=== PATIENT | male | born 1965 | race American Indian/Alaskan Native ===

== ENCOUNTER 2017-01-06 06:22 | Emergency (ER) | payer MEDICARE, OTHER ==
[2017-01-06] MEDS ORDERED: Dextrose 50% SYRINGE Inj (50 ml) ONE (06:29)
[2017-01-06] MEDS ORDERED: Dextrose 50% SYRINGE Inj (50 ml) IV STA (06:37)
[2017-01-06 06:44] VITALS: PULSE 78
--- NOTE | 2017-01-06 06:51 | C.PDOC ---
Time Seen by Provider: 01/06/17 06:40 Chief Complaint (Nursing): Altered Mental Status History Per: Patient, EMS History/Exam Limitations: clinical condition Onset/Duration Of Symptoms: Unknown (tonight?) Current Symptoms Are (Timing): Better Severity: Severe Current Diabetic Medications: Insulin Causative (Exacerbating) Factor(s): Other (Alcohol use) Treatment Prior To Provider Evaluation: Accucheck, D50W Given Response To Treatment: Good Response Additional History Per: Prior Records Past Medical History Reviewed: Historical Data, Nursing Documentation, Vital Signs Vital Signs: Last Vital Signs Temp 94.6 F L 01/06/17 06:29 Pulse 78 01/06/17 06:29 Resp 18 01/06/17 06:29 BP 114/92 H 01/06/17 06:29 Pulse Ox 94 L 01/06/17 06:51 - Medical History PMH: Diabetes, HTN - [facility] Procedures TETANUS TOXOID ADMINIST (05/08/15) Family History: States: Unknown Family Hx - Social History Hx Alcohol Use: Yes Hx Substance Use: No - Immunization History Hx Tetanus Toxoid Vaccination: No Hx Influenza Vaccination: No Hx Pneumococcal Vaccination: No Review Of Systems Except As Marked, All Systems Reviewed And Found Negative. Constitutional: Positive for: Sweats Cardiovascular: Negative for: Chest Pain Respiratory: Negative for: Shortness of Breath, Hemoptysis Gastrointestinal: Negative for: Vomiting, Abdominal Pain, Diarrhea Genitourinary: Negative for: Dysuria Musculoskeletal: Negative for: Neck Pain Skin: Negative for: Rash Neurological: Negative for: Weakness, Numbness, Seizures Physical Exam - Physical Exam Appears: In Acute Distress (mild), Chronically Ill Skin: Dry Head: Atraumatic, Normacephalic Eye(s): bilateral: PERRL Neck: Normal ROM, Supple Cardiovascular: Rhythm Regular Respiratory: Normal Breath Sounds, No Accessory Muscle Use Gastrointestinal/Abdominal: Soft, No Tenderness Extremity: Normal ROM Neurological/Psych: Oriented x3, Normal Motor, Normal Sensation ED Course And Treatment O2 Sat by Pulse Oximetry: 94 Pulse Ox Interpretation: Other (borderline) Disposition - Disposition Disposition Time: 07:00 Condition: SERIOUS - Clinical Impression Clinical Impression: Hypoglycemia, Hypothermia Physician Patient Turnover Patient Signed Over To: Ramirez Landis DO Handoff Comments: to f/up labs, CXR, U/A and reassess/dispo pt.
[2017-01-06 08:04] LABS: CHLORIDE 107 mmol/L (98-107); LYMPH # 0.2 K/uL (1.0-4.3); MEAN PLATELET VOLUME 11.1 fL (7.2-11.7); NRBC % 0.4 % (0.0-2.0)
[2017-01-06 08:05] LABS: POTASSIUM 3.8 mmol/L (3.6-5.2); SODIUM 141 mmol/L (132-148)
[2017-01-06 08:07] LABS: ALB/GLOB RATIO 1.3 (1.0-2.1); ALKALINE PHOSPHATASE 56 U/L (38-126); ALT/SGPT 19 U/L (21-72); AST/SGOT 40 U/L (17-59); BILIRUBIN,TOTAL 0.7 mg/dL (0.2-1.3); BLOOD UREA NITROGEN 7 mg/dL (9-20); CARBON DIOXIDE 24 mmol/L (22-30); GFR AFRICAN-AMERICAN > 60; GLUCOSE,RANDOM 136 mg/dL (75-110); TOTAL PROTEIN 7.6 g/dL (6.3-8.3)
[2017-01-06 08:08] LABS: ALCOHOL SERUM < 10 mg/dl (0-10); MAGNESIUM 1.9 mg/dL (1.6-2.3)
--- NOTE | 2017-01-06 08:11 | RAD ---
HISTORY: Hypoglycemia COMPARISON: 08/17/2016 FINDINGS: LUNGS: No focal airspace opacity. PLEURA: No significant pleural effusion identified, no pneumothorax apparent. CARDIOVASCULAR: Normal. OSSEOUS STRUCTURES: Sclerotic focus in the 5th right posterior rib again seen. VISUALIZED UPPER ABDOMEN: Upper abdomen is suboptimally evaluated. OTHER FINDINGS: None. IMPRESSION: No focal airspace opacity.
[2017-01-06 08:15] LABS: BASO # 0.1 K/uL (0.0-0.2); BASO % 1.7 % (0.0-2.0); EOS # 0.6 K/uL (0.0-0.7); EOS % 7.3 % (0.0-4.0); HEMATOCRIT 37.1 % (35.0-51.0); LYMPH % 2.2 % (20.0-40.0); MEAN CORPUSCULAR HGB CONC 34.9 g/dL (33.0-37.0); MONO # 0.7 K/uL (0.0-0.8); MONO % 8.4 % (0.0-10.0); RED CELL DISTRIBUTION WIDTH 14.5 % (11.5-14.5); WHITE BLOOD COUNT 7.9 K/uL (4.8-10.8)
[2017-01-06 08:18] LABS: MEAN CELL VOLUME 97.3 fL (80.0-94.0); PLATELET COUNT 115 K/uL (130-400)
[2017-01-06 09:25] LABS: EOSINOPHIL 1 % (0-4); NEUTROPHIL 83 % (50-75); TOTAL CELLS COUNTED 100
[2017-01-06 09:26] LABS: LARGE PLATELETS PRESENT
[2017-01-06 09:45] LABS: RBC URINE < 1 /hpf (0-3); URINE BILIRUBIN NEGATIVE (NEGATIVE); URINE BLOOD NEGATIVE (NEGATIVE); URINE COLOR Straw (YELLOW); URINE GLUCOSE (UA) 2+ mg/dL (Normal); URINE KETONE NEGATIVE (NEGATIVE); URINE LEUKOCYTE ESTERASE NEG Leu/uL (Negative); URINE PROTEIN NEGATIVE (NEGATIVE); URINE UROBILINOGEN NORMAL mg/dL (0.2-1.0); WBC URINE < 1 /hpf (0-5)
[2017-01-06 09:56] VITALS: BP 133/85; RESP 15; TEMP 97.9; O2SAT 98
--- NOTE | 2017-01-18 23:22 | CARD ---
APPROVED REPORT EKG Measurement Heart [id number] <Conclusion> Normal sinus rhythm Normal ECG
== END 2017-01-06 10:50 | disposition home or self-care (01) ==
LOC: C.ER 06:22 → SUPCPDRO 06:22 → C.ER 10:50
DX: E11.649 Type 2 diabetes mellitus with hypoglycemia without coma (principal); T68.XXXA Hypothermia, initial encounter
CPT/HCPCS: 36415; 71010; 80053; 81001; 83735; 84484; 85025; 93005; 96374; 99285; G0480

== ENCOUNTER 2018-10-23 12:48 | Inpatient (IN) | payer MEDICARE, OTHER ==
[2018-10-23] MEDS ORDERED: Sodium Chloride 0.9% 1,000 ML IV ONE ×2 (12:57→14:35)
[2018-10-23] MEDS ORDERED: Lactated Ringer's 1,000 ML IV STA (12:57)
[2018-10-23 13:22] LABS: HEMOGLOBIN 12.3 g/dL (12.0-18.0)
[2018-10-23] MEDS ORDERED: Iodixanol 320 MG/ML 100 ML BOTTLE IV ONE (13:25)
[2018-10-23 13:28] LABS: MEAN CELL VOLUME 93.6 fL (80.0-94.0); MEAN CORPUSCULAR HEMOGLOBIN 32.3 pg (27.0-31.0); MEAN CORPUSCULAR HGB CONC 34.5 g/dL (33.0-37.0); MEAN PLATELET VOLUME 11.1 fL (7.2-11.7); PLATELET COUNT 78 K/uL (130-400); RBC 3.82 Mil/uL (4.40-5.90); RED CELL DISTRIBUTION WIDTH 12.9 % (11.5-14.5)
[2018-10-23 13:28] LABS: VENOUS BLOOD GAS BASE EXCESS -1.7 mmol/L (0.0-2.0); VENOUS BLOOD GAS PCO2 45 mmHg (40-60); VENOUS BLOOD GAS PO2 30 mm/Hg (30-55); VENOUS BLOOD PH 7.34 (7.32-7.43)
[2018-10-23 13:33] LABS: INR 1.3; PROTHROMBIN TIME 13.8 SECONDS (9.7-12.2)
[2018-10-23 13:47] LABS: BANDS 2 % (0-2); LYMPHOCYTE 44 % (20-40); MONOCYTE 4 % (0-10); NEUTROPHIL 48 % (50-75); PLATELET ESTIMATE DECREASED (NORMAL); REACTIVE LYMPHOCYTES 2 % (0-0); TOTAL CELLS COUNTED 50
[2018-10-23 14:23] LABS: BLOOD UREA NITROGEN 5 mg/dL (9-20)
--- NOTE | 2018-10-23 14:23 | RAD ---
Date of service: 10/23/2018 HISTORY: abd pain COMPARISON: Portable chest 01/06/2017. FINDINGS: LUNGS: No active pulmonary disease. PLEURA: No significant pleural effusion identified, no pneumothorax apparent. CARDIOVASCULAR: No aortic atherosclerotic calcification present. Normal cardiac size. No pulmonary vascular congestion. OSSEOUS STRUCTURES: No significant abnormalities. VISUALIZED UPPER ABDOMEN: Normal. OTHER FINDINGS: External pacemaker in situ. IMPRESSION: No interval acute cardiopulmonary disease appreciated.
[2018-10-23 14:24] LABS: ALB/GLOB RATIO 1.2 (1.0-2.1); ALBUMIN 3.5 g/dL (3.5-5.0); AST/SGOT 24 U/L (17-59); CALCIUM 8.4 mg/dl (8.6-10.4); GFR NON-AFRICAN AMERICAN > 60
[2018-10-23 14:25] LABS: ALT/SGPT 12 U/L (21-72); LIPASE < 10 U/L (23-300)
[2018-10-23] MEDS ORDERED: Piperacill/Tazo 3.375gm in Dex 3.375 GM/50 ML BAG IVPB STA (14:35)
[2018-10-23] MEDS ORDERED: Sodium Chloride 0.9% 1,000 ML ONE (14:44)
[2018-10-23] MEDS ORDERED: Lactated Ringer's 1,000 ML ONE (14:44)
[2018-10-23] MEDS ORDERED: Piperacillin/Tazobact 3.375 gm 100 ML IVPB ONE (14:59)
[2018-10-23] MEDS ORDERED: Potassium Chloride 20 mEq 100 ML ONE (15:37)
--- NOTE | 2018-10-23 15:43 | CT ---
Date of service: 10/23/2018 PROCEDURE: CT Chest, Abdomen and Pelvis with intravenous contrast HISTORY: AAA COMPARISON: Abdomen pelvis CT with contrast 12/08/2012. TECHNIQUE: Following the intravenous administration of iodinated contrast material, a CT examination of the chest, abdomen and pelvis was performed from the domes of the thoracic inlet to the symphysis pubis with reformatted datasets provided in axial, sagittal and coronal planes. Oral contrast was not administered as per referring physician request. IV dose administered: Visipaque 320, 100 cc Radiation dose: Total exam DLP = 1654.77 mGy-cm. This CT exam was performed using one or more of the following dose reduction techniques: Automated exposure control, adjustment of the mA and/or kV according to patient size, and/or use of iterative reconstruction technique. FINDINGS: Aorta: No CT evidence of thoracic or abdominal aortic dissection or aneurysm. There is a nonspecific lucency identified which does not enhance but displaces the renal segment of the abdominal aorta antral laterally toward the left and measures 3.4 x 2.6 cm compared to 4.1 by 1.9 cm on 12/08/[address] The origin of this lucency is unclear. CT CHEST WITH CONTRAST: LUNGS: No infiltrates bilaterally. Central airways are clear. Two noncalcified subpleural nodules are identified measuring 3 mm at the more anterior the 2 and 2.5 mm at the more posterior of the 2. These are interval findings requiring follow-up CT in 12 months. MEDIASTINUM: Unremarkable. Normal caliber aorta and pulmonary arterial trunk. No aortic dissection. Normal size heart. LYMPH NODES: Unremarkable. PLEURA: Unremarkable. No pneumothorax. No pleural fluid. BONES: Unremarkable. OTHER FINDINGS: None. CT ABDOMEN AND PELVIS: LIVER: Periportal edema is appreciated diffusely throughout the liver, nonspecific finding. It is difficult to exclude some element of limited intrahepatic biliary dilatation. GALLBLADDER AND BILE DUCTS: Gallbladder appears distended but is otherwise unremarkable. PANCREAS: Pancreatic edema is not excluded. Pancreatic neoplasm is also difficult to exclude though not specifically identified. Anasarca pattern of intra versus extra abdominal fat and gross cachexia limited definition of the pancreatic borders. SPLEEN: Prior splenectomy again evident. ADRENALS: Left adrenal hyperplasia in question. Right adrenal gland unremarkable. KIDNEYS AND URETERS: Tiny lucency seen the medial upper midpole left kidney too small to characterize with the right kidney unremarkable no obstructive uropathy bilaterally. 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 Abdominal aorta as discussed above. Varices are identified along the anterior abdominal wall as well as an extensive network at the gastrohepatic ligament. BOWEL: No bowel obstruction identified. Prominent thickening in of the colon is proven at the mid descending through rectosigmoid segments but may be present more proximally but the lack of oral contrast limits evaluation. Consider segmental colitis or potentially even adams colitis. Small bowel is poorly evaluated. Stomach is partially collapsed. APPENDIX: Not identified. PERITONEUM: Unremarkable. No free fluid. No free air. LYMPH NODES: Unremarkable. No enlarged lymph nodes. BLADDER: Thickened urinary bladder may indicate cystitis, particularly suspicious due to moderate distention of the urinary bladder rather than collapse. Clinically correlate. REPRODUCTIVE: Mildly enlarged prostate gland. BONES: Mild anterior wedge compression fractures of T11 and L1 are identified which are of indeterminate age. OTHER FINDINGS: None. IMPRESSION: No definite abdominal aortic aneurysm throughout the chest or abdomen with a small cystic lesion or collection displacing the abdominal aorta antral laterally toward the left once again of uncertain origin measuring 3.4 cm greatest dimension. No CT evidence of aortic dissection. Additional findings as discussed above.
--- NOTE | 2018-10-23 15:54 | C.PDOC ---
History Of Present Illness 52 years old male with PMHx of diabetes presents to ED for evaluation of syncopal episode. Patient reports he syncopized at home today. Patient also reports complaints of abdominal pain associated with nausea and constipation prior to event. Denies head injuries or any other complaints. Time Seen by Provider: 10/23/18 12:56 Chief Complaint (Nursing): Abdominal Pain History Per: Patient History/Exam Limitations: no limitations Onset/Duration Of Symptoms: Hrs Current Symptoms Are (Timing): Still Present Location Of Pain/Discomfort: Diffuse Radiation Of Pain To:: None Quality Of Discomfort: "Pain" Associated Symptoms: Nausea, Constipation. denies: Fever, Chills, Vomiting, Di arrhea Exacerbating Factors: None Alleviating Factors: None Last Bowel Movement: Days Ago Recent travel outside of the [place]: No Past Medical History Reviewed: Historical Data, Nursing Documentation, Vital Signs Vital Signs: Last Vital Signs Temp 98.4 F 10/23/18 14:05 Pulse 116 H 10/23/18 15:38 Resp 18 10/23/18 15:38 BP 119/72 10/23/18 15:38 Pulse Ox 100 10/23/18 15:38 - Medical History PMH: Diabetes, HTN - [facility] Procedures TETANUS TOXOID ADMINIST (05/08/15) Family History: States: Unknown Family Hx - Social History Hx Alcohol Use: No Hx Substance Use: No - Immunization History Hx Tetanus Toxoid Vaccination: No Hx Influenza Vaccination: No Hx Pneumococcal Vaccination: No Review Of Systems Except As Marked, All Systems Reviewed And Found Negative. Constitutional: Negative for: Fever, Chills Gastrointestinal: Positive for: Nausea, Abdominal Pain, Constipation. Negative for: Vomiting, Diarrhea Skin: Negative for: Rash Neurological: Positive for: Other (syncopal episode ). Negative for: Weakness, Numbness Physical Exam - Physical Exam Appears: Non-toxic, In Acute Distress (Severe ), Other (Hypertensive ) Skin: Dry, Pale, No Rash Head: Atraumatic, Normacephalic Eye(s): bilateral: Normal Inspection, PERRL, EOMI Oral Mucosa: Dry Neck: Normal ROM, Supple Chest: Symmetrical, No Tenderness Cardiovascular: Rhythm Regular (Tachycardic ) Respiratory: Normal Breath Sounds, No Rales, No Rhonchi, No Wheezing Gastrointestinal/Abdominal: Soft, Tenderness (Mid abdomen ), Guarding, No Rebound Rectal: Other (Stool normal collar ) Extremity: Normal ROM Extremity: Bilateral: Atraumatic, Normal Color And Temperature, Normal ROM Pulses: Left Radial: Normal, Right Radial: Normal, Left Dorsalis Pedis: Normal, Right Dorsalis Pedis: Normal Neurological/Psych: Oriented x3, Normal Speech, Other (Generalized weakness. ) ED Course And Treatment - Laboratory Results Result Diagrams: 10/23/18 13:15 10/23/18 13:15 Lab Results: pO2 30 mm/Hg (30-55) 10/23/18 13:23 VBG pH 7.34 (7.32-7.43) 10/23/18 13:23 VBG pCO2 45 mmHg (40-60) 10/23/18 13:23 VBG HCO3 22.4 mmol/L 10/23/18 13:23 VBG Total CO2 25.7 mmol/L (22-28) 10/23/18 13:23 VBG O2 Sat (Calc) 65.8 % (40-65) H 10/23/18 13:23 VBG Base Excess -1.7 mmol/L (0.0-2.0) L 10/23/18 13:23 VBG Potassium 2.1 mmol/L (3.6-5.2) L* 10/23/18 13:23 Sodium 141.0 mmol/l (132-148) 10/23/18 13:23 Chloride 104.0 mmol/L (98-107) 10/23/18 13:23 Glucose 77 mg/dl (75-110) 10/23/18 13:23 Lactate 7.0 mmol/L (0.7-2.1) H* 10/23/18 13:23 PT 13.8 SECONDS (9.7-12.2) H 10/23/18 13:15 INR 1.3 10/23/18 13:15 APTT 25 SECONDS (21-34) 10/23/18 13:15 Troponin I < 0.0120 ng/mL (0.00-0.120) 10/23/18 13:15 Total Bilirubin 0.8 mg/dL (0.2-1.3) 10/23/18 13:15 AST 24 U/L (17-59) 10/23/18 13:15 ALT 12 U/L (21-72) L D 10/23/18 13:15 Alkaline Phosphatase 73 U/L (38-126) 10/23/18 13:15 Total Protein 6.4 g/dL (6.3-8.3) 10/23/18 13:15 Albumin 3.5 g/dL (3.5-5.0) 10/23/18 13:15 Globulin 2.9 gm/dL (2.2-3.9) 10/23/18 13:15 Albumin/Globulin Ratio 1.2 (1.0-2.1) 10/23/18 13:15 Lipase < 10 U/L (23-300) L 10/23/18 13:15 O2 Sat by Pulse Oximetry: 100 (RA) Pulse Ox Interpretation: Normal - Other Rad CXR X-Ray: Viewed By Me, Read By Radiologist Interpretation: Date of service: 10/23/2018. HISTORY: abd pain. COMPARISON: Portable chest 01/06/2017. FINDINGS: LUNGS: No active pulmonary disease. PLEURA: No significant pleural effusion identified, no pneumothorax apparent. CARDIOVASCULAR: No aortic atherosclerotic calcification present. Normal cardiac size. No pulmonary vascular congestion. OSSEOUS STRUCTURES: No significant abnormalities. VISUALIZED UPPER ABDOMEN: Normal. OTHER FINDINGS: External pacemaker in situ. IMPRESSION: No interval acute cardiopulmonary disease appreciated. - CT Scan/US Chest/Abdomen/Pelvis CT Other Rad Studies (CT/US): Read By Radiologist, Radiology Report Reviewed CT/US Interpretation: Date of service: 10/23/2018. PROCEDURE: CT Chest, Abdomen and Pelvis with intravenous contrast. HISTORY: AAA. COMPARISON: Abdomen pelvis CT with contrast 12/08/2012. TECHNIQUE: Following the intravenous administration of iodinated contrast material, a CT examination of the chest, abdomen and pelvis was performed from the domes of the thoracic inlet to the symphysis pubis with reformatted datasets provided in axial, sagittal and coronal planes. Oral contrast was not administered as per referring physician request. IV dose administered: Visipaque 320, 100 cc. Radiation dose: Total exam DLP = 1654.77 mGy-cm. This CT exam was performed using one or more of the following dose reduction techniques: Automated exposure control, adjustment of the mA and/or kV according to patient size, and/or use of iterative reconstruction technique. FINDINGS: Aorta: No CT evidence of thoracic or abdominal aortic dissection or aneurysm. There is a nonspecific lucency identified which does not enhance but displaces the renal segment of the abdominal aorta antral laterally toward the left and measures 3.4 x 2.6 cm compared to 4.1 by 1.9 cm on 12/08/[address] The origin of this lucency is unclear. CT CHEST WITH CONTRAST: LUNGS: No infiltrates bilaterally. Central airways are clear. Two noncalcified subpleural nodules are identified measuring 3 mm at the more anterior the 2 and 2.5 mm at the more posterior of the 2. The se are interval findings requiring follow-up CT in 12 months. MEDIASTINUM: Unremarkable. Normal caliber aorta and pulmonary arterial trunk. No aortic dissection. Normal size heart. LYMPH NODES: Unremarkable. PLEURA: Unremarkable. No pneumothorax. No pleural fluid. BONES: Unremarkable. OTHER FINDINGS: None. CT ABDOMEN AND PELVIS: LIVER: Periportal edema is appreciated diffusely throughout the liver, nonspecific finding. It is difficult to exclude some element of limited intrahepatic biliary dilatation. GALLBLADDER AND BILE DUCTS: Gallbladder appears distended but is otherwise un remarkable. PANCREAS: Pancreatic edema is not excluded. Pancreatic neoplasm is also difficult to exclude though not specifically identified. Anasarca pattern of intra versus extra abdominal fat and gross cachexia limited definition of the pancreatic borders. SPLEEN: Prior splenectomy again evident. ADRENALS: Left adrenal hyperplasia in question. Right adrenal gland unremarkable. KIDNEYS AND URETERS: Tiny lucency seen the medial upper midpole left kidney too small to characterize with the right kidney unremarkable no obstructive uropathy bilaterally. 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 Abdominal aorta as discussed above. Varices are identified along the anterior abdominal wall as well as an extensive network at the gastrohepatic ligament. BOWEL: No bowel obstruction identified. Prominent thickening in of the colon is proven at the mid descending through rectosigmoid segments but may be present more proximally but the lack of oral contrast limits evaluation. Consider segmental colitis or potentially even adams colitis. Small bowel is poorly evaluated. Stomach is partially collapsed. APPENDIX: Not identified. PERITONEUM: Unremarkable. No free fluid. No free air. LYMPH NODES: Unremarkable. No enlarged lymph nodes. BLADDER: Thickened urinary bladder may indicate cystitis, particularly suspicious due to moderate distention of the urinary bladder rather than collapse. Clinically correlate. REPRODUCTIVE: Mildly enlarged prostate gland. BONES: Mild anterior wedge compression fractures of T11 and L1 are identified which are of indeterminate age. OTHER FINDINGS: None. IMPRESSION: No definite abdominal aortic aneurysm throughout the chest or abdomen with a small cystic lesion or collection displacing the abdominal aorta antral laterally toward the left once again of uncertain origin measuring 3.4 cm greatest dimension. No CT evidence of aortic dissection. Additional findings as discussed above. Medical Decision Making Medical Decision Making: Plan: * IV Fluids * Zosyn * Potassium * Zofran * Protonix * Blood Bank * Blood Gas * EKG * Blood work * CXR * CT Chest, abd, pelv * Blood culture * Urine Culture * Urinalysis Progress: Patient in ER administered IV fluids with improvement of blood pressure. CT and BBK ordered. Elevated Lactate received and code sepsis was called at 14:43. 15:56: Dr. Bull was called and he recommended for patient to be [facility]. Disposition Discussed With : Dennis Verdin - Disposition Disposition Time: 15:56 Condition: SERIOUS - Clinical Impression Clinical Impression: Abdominal pain, Sepsis - Scribe Statement The provider has reviewed the documentation as recorded by the Delfina Lujan All medical record entries made by the Lizbetibkaren were at my direction and personally dictated by me. I have reviewed the chart and agree that the record accurately reflects my personal performance of the history, physical exam, medical decision making, and the department course for this patient. I have also personally directed, reviewed, and agree with the discharge instructions and disposition. Rosemary
[2018-10-23] MEDS ORDERED: Vancomycin 1 GM 1 GM/250 ML BAG IVPB ONE (16:24)
[2018-10-23] MEDS: Lactated Ringer's 1,000 ML IV SCH ×2 (17:10→20:58)
[2018-10-23] MEDS: Magnesium Sulfate 1 gm in D5W 1 GM/100 ML BAG IVPB SCH ×2 (17:10→17:43)
[2018-10-23] MEDS ORDERED: Magnesium Sulfate 1 gm in D5W 1 GM/100 ML BAG IVPB ONE ×2 (17:17→17:44)
[2018-10-23] MEDS: (Novolog Mix 70/30) Insulin Aspart/Insulin Aspar 100 units/ml SC SCH (19:07)
[2018-10-23 20:17] LABS: HEMOGLOBIN 12.1 g/dL (12.0-18.0); MEAN CELL VOLUME 92.5 fL (80.0-94.0); MEAN CORPUSCULAR HEMOGLOBIN 31.7 pg (27.0-31.0); MEAN CORPUSCULAR HGB CONC 34.3 g/dL (33.0-37.0); MEAN PLATELET VOLUME 11.6 fL (7.2-11.7); RBC 3.82 Mil/uL (4.40-5.90); RED CELL DISTRIBUTION WIDTH 12.9 % (11.5-14.5); WHITE BLOOD COUNT 9.7 K/uL (4.8-10.8)
[2018-10-23 20:33] LABS: BLOOD UREA NITROGEN 6 mg/dL (9-20); CALCIUM 7.9 mg/dl (8.6-10.4); GFR NON-AFRICAN AMERICAN > 60
[2018-10-23] MEDS: Potassium Chloride 20 mEq ER Tab PO SCH (20:52)
[2018-10-23 20:59] LABS: SQUAMOUS EPITHIAL 1 /hpf (0-5); URINE BILIRUBIN NEGATIVE (NEGATIVE); URINE BLOOD 1+ (NEGATIVE); URINE CLARITY Clear (Clear); URINE COLOR Yellow (YELLOW); URINE GLUCOSE (UA) 3+ mg/dL (Normal); URINE LEUKOCYTE ESTERASE NEG Leu/uL (Negative); URINE PROTEIN 1+ mg/dL (NEGATIVE); URINE UROBILINOGEN NORMAL mg/dL (0.2-1.0)
[2018-10-23] MEDS: Piperacillin/Tazobact 3.375 GM in Sodium Chloride 100 ML IVPB SCH (21:01)
[2018-10-23 21:03] LABS: HEPATITIS B SURFACE AG Negative (NEGATIVE)
[2018-10-23 21:06] LABS: BARBITURATES, UR NEGATIVE (NEGATIVE); BENZODIAZEPINES, UR NEGATIVE (NEGATIVE); OPIATES, UR NEGATIVE (NEGATIVE); PHENCYCLIDINE, UR NEGATIVE (NEGATIVE)
[2018-10-23 21:09] LABS: HEPATITIS A IGM NEGATIVE (NEGATIVE); HEPATITIS B CORE AB NEGATIVE (NEGATIVE)
[2018-10-23 21:21] LABS: HEPATITIS C ANTIBODY NEGATIVE (NEGATIVE)
[2018-10-23] MEDS ORDERED: Dextrose 50% SYRINGE Inj (50 ml) IV PRN (21:35)
[2018-10-23] MEDS ORDERED: Glucagon Recombinant 1 mg Inj IM PRN (21:35)
[2018-10-23] MEDS: (Novolin R) Insulin Human Regular 100 units/ml vial SC SCH (22:00)
--- NOTE | 2018-10-23 22:13 | CP.PCM.HP ---
Present on Admission - Present on Admission Any Indicators Present on Admission: Yes History of Uncontrolled Diabetes: Yes Past Patient History - Infectious Disease Hx of Infectious Diseases: None - Past Medical History & Family History Past Medical History?: Yes - Past Social History Smoking Status: Heavy Smoker > 10 Cigarettes Daily - CARDIAC Hx Cardiac Disorders: Yes Hx Hypertension: Yes - PULMONARY Hx Respiratory Disorders: No - NEUROLOGICAL Hx Neurological Disorder: Yes Hx Syncope: Yes - HEENT Hx HEENT Problems: No - RENAL Hx Chronic Kidney Disease: No - ENDOCRINE/METABOLIC Hx Endocrine Disorders: Yes Hx Diabetes Mellitus Type 1: Yes - HEMATOLOGICAL/ONCOLOGICAL Hx Blood Disorders: No - INTEGUMENTARY Hx Dermatological Problems: No - MUSCULOSKELETAL/RHEUMATOLOGICAL Hx Musculoskeletal Disorders: No - GASTROINTESTINAL Hx Gastrointestinal Disorders: No - GENITOURINARY/GYNECOLOGICAL Hx Genitourinary Disorders: No - PSYCHIATRIC Hx Psychophysiologic Disorder: No Hx Substance Use: No - SURGICAL HISTORY Hx Surgeries: Yes Hx Splenectomy: Yes () Hx Vascular Surgery: Yes Other/Comment: as per pt,"spleen sx, lungs, and filter to R groin for DVT" - ANESTHESIA Hx Anesthesia: No Hx Anesthesia Reactions: No Hx Malignant Hyperthermia: No Has any member of the family had a problem w/ anesthesia?: No Meds Allergies/Adverse Reactions: Allergies Allergy/AdvReac Type Severity Reaction Status Date / Time aspirin Allergy Verified 10/23/18 12:58 Results - Vital Signs Recent Vital Signs: Last Vital Signs Temp 99.1 F 10/23/18 18:57 Pulse 96 H 10/23/18 19:41 Resp 18 10/23/18 19:41 BP 112/71 10/23/18 19:41 Pulse Ox 98 10/23/18 19:41 - Labs Result Diagrams: 10/23/18 20:10 10/23/18 20:10 Labs: Laboratory Results - last 24 hr 10/23/18 10/23/18 10/23/18 12:59 13:15 13:15 WBC 1.0 L* D RBC 3.82 L Hgb 12.3 Hct 35.7 MCV 93.6 D MCH 32.3 H MCHC 34.5 RDW 12.9 Plt Count 78 L D MPV 11.1 Neutrophils % (Manual) 48 L Band Neutrophils % 2 Lymphocytes % (Manual) 44 H Reactive Lymphs % 2 H Monocytes % (Manual) 4 Platelet Estimate Decreased L RBC Morphology Normal PT INR APTT pO2 VBG pH VBG pCO2 VBG HCO3 VBG Total CO2 VBG O2 Sat (Calc) VBG Base Excess VBG Potassium Glucose Lactate Sodium 140 Potassium 2.5 L* D Chloride 103 Carbon Dioxide 22 Anion Gap 18 BUN 5 L Creatinine 0.6 L Est GFR ( Amer) > 60 Est GFR (Non-Af Amer) > 60 POC Glucose (mg/dL) 82 Random Glucose 84 D Lactic Acid Calcium 8.4 L Phosphorus Magnesium Total Bilirubin 0.8 AST 24 ALT 12 L D Alkaline Phosphatase 73 Troponin I < 0.0120 Total Protein 6.4 Albumin 3.5 Globulin 2.9 Albumin/Globulin Ratio 1.2 Lipase < 10 L Venous Blood Potassium Urine Color Urine Clarity Urine pH Ur Specific [place] Urine Protein Urine Glucose (UA) Urine Ketones Urine Blood Urine Nitrate Urine Bilirubin Urine Urobilinogen Ur Leukocyte Esterase Urine WBC (Auto) Urine RBC (Auto) Ur Squamous Epith Cells Urine Opiates Screen Urine Methadone Screen Ur Barbiturates Screen Ur Phencyclidine Scrn Ur Amphetamines Screen U Benzodiazepines Scrn U Oth Cocaine Metabols U Cannabinoids Screen Hepatitis A IgM Ab Hep Bs Antigen Hep B Core IgM Ab Hepatitis C Antibody HIV 1&2 Antibody Screen Blood Type Antibody Screen 10/23/18 10/23/18 10/23/18 13:15 13:23 16:08 WBC RBC Hgb Hct MCV MCH MCHC RDW Plt Count MPV Neutrophils % (Manual) Band Neutrophils % Lymphocytes % (Manual) Reactive Lymphs % Monocytes % (Manual) Platelet Estimate RBC Morphology PT 13.8 H INR 1.3 APTT 25 pO2 30 VBG pH 7.34 VBG pCO2 45 VBG HCO3 22.4 VBG Total CO2 25.7 VBG O2 Sat (Calc) 65.8 H VBG Base Excess -1.7 L VBG Potassium 2.1 L* Glucose 77 Lactate 7.0 H* Sodium 141.0 Potassium Chloride 104.0 Carbon Dioxide Anion Gap BUN Creatinine Est GFR ( Amer) Est GFR (Non-Af Amer) POC Glucose (mg/dL) Random Glucose Lactic Acid Calcium Phosphorus 2.4 L Magnesium 1.3 L Total Bilirubin AST ALT Alkaline Phosphatase Troponin I Total Protein Albumin Globulin Albumin/Globulin Ratio Lipase Venous Blood Potassium 2.1 L* Urine Color Urine Clarity Urine pH Ur Specific [place] Urine Protein Urine Glucose (UA) Urine Ketones Urine Blood Urine Nitrate Urine Bilirubin Urine Urobilinogen Ur Leukocyte Esterase Urine WBC (Auto) Urine RBC (Auto) Ur Squamous Epith Cells Urine Opiates Screen Urine Methadone Screen Ur Barbiturates Screen Ur Phencyclidine Scrn Ur Amphetamines Screen U Benzodiazepines Scrn U Oth Cocaine Metabols U Cannabinoids Screen Hepatitis A IgM Ab Hep Bs Antigen Hep B Core IgM Ab Hepatitis C Antibody HIV 1&2 Antibody Screen Blood Type Antibody Screen 10/23/18 10/23/18 10/23/18 16:52 18:19 20:10 WBC RBC Hgb Hct MCV MCH MCHC RDW Plt Count MPV Neutrophils % (Manual) Band Neutrophils % Lymphocytes % (Manual) Reactive Lymphs % Monocytes % (Manual) Platelet Estimate RBC Morphology PT INR APTT pO2 VBG pH VBG pCO2 VBG HCO3 VBG Total CO2 VBG O2 Sat (Calc) VBG Base Excess VBG Potassium Glucose Lactate Sodium Potassium Chloride Carbon Dioxide Anion Gap BUN Creatinine Est GFR ( Amer) Est GFR (Non-Af Amer) POC Glucose (mg/dL) 70 Random Glucose Lactic Acid Calcium Phosphorus Magnesium Total Bilirubin AST ALT Alkaline Phosphatase Troponin I Total Protein Albumin Globulin Albumin/Globulin Ratio Lipase Venous Blood Potassium Urine Color Urine Clarity Urine pH Ur Specific [place] Urine Protein Urine Glucose (UA) Urine Ketones Urine Blood Urine Nitrate Urine Bilirubin Urine Urobilinogen Ur Leukocyte Esterase Urine WBC (Auto) Urine RBC (Auto) Ur Squamous Epith Cells Urine Opiates Screen Urine Methadone Screen Ur Barbiturates Screen Ur Phencyclidine Scrn Ur Amphetamines Screen U Benzodiazepines Scrn U Oth Cocaine Metabols U Cannabinoids Screen Hepatitis A IgM Ab Negative Hep Bs Antigen Negative Hep B Core IgM Ab Negative Hepatitis C Antibody Negative HIV 1&2 Antibody Screen Blood Type A POSITIVE Antibody Screen Negative 10/23/18 10/23/18 10/23/18 20:10 20:10 20:10 WBC 9.7 D RBC 3.82 L Hgb 12.1 Hct 35.4 MCV 92.5 MCH 31.7 H MCHC 34.3 RDW 12.9 Plt Count 67 L MPV 11.6 Neutrophils % (Manual) Band Neutrophils % Lymphocytes % (Manual) Reactive Lymphs % Monocytes % (Manual) Platelet Estimate RBC Morphology PT INR APTT pO2 VBG pH VBG pCO2 VBG HCO3 VBG Total CO2 VBG O2 Sat (Calc) VBG Base Excess VBG Potassium Glucose Lactate Sodium 136 Potassium 2.4 L* Chloride 104 Carbon Dioxide 24 Anion Gap 10 BUN 6 L Creatinine 0.7 L Est GFR ( Amer) > 60 Est GFR (Non-Af Amer) > 60 POC Glucose (mg/dL) Random Glucose 49 L D Lactic Acid Calcium 7.9 L Phosphorus Magnesium 2.0 Total Bilirubin AST ALT Alkaline Phosphatase Troponin I Total Protein Albumin Globulin Albumin/Globulin Ratio Lipase Venous Blood Potassium Urine Color Urine Clarity Urine pH Ur Specific [place] Urine Protein Urine Glucose (UA) Urine Ketones Urine Blood Urine Nitrate Urine Bilirubin Urine Urobilinogen Ur Leukocyte Esterase Urine WBC (Auto) Urine RBC (Auto) Ur Squamous Epith Cells Urine Opiates Screen Urine Methadone Screen Ur Barbiturates Screen Ur Phencyclidine Scrn Ur Amphetamines Screen U Benzodiazepines Scrn U Oth Cocaine Metabols U Cannabinoids Screen Hepatitis A IgM Ab Hep Bs Antigen Hep B Core IgM Ab Hepatitis C Antibody HIV 1&2 Antibody Screen Negative Blood Type Antibody Screen 10/23/18 10/23/18 10/23/18 20:41 20:50 21:06 WBC RBC Hgb Hct MCV MCH MCHC RDW Plt Count MPV Neutrophils % (Manual) Band Neutrophils % Lymphocytes % (Manual) Reactive Lymphs % Monocytes % (Manual) Platelet Estimate RBC Morphology PT INR APTT pO2 VBG pH VBG pCO2 VBG HCO3 VBG Total CO2 VBG O2 Sat (Calc) VBG Base Excess VBG Potassium Glucose Lactate Sodium Potassium Chloride Carbon Dioxide Anion Gap BUN Creatinine Est GFR ( Amer) Est GFR (Non-Af Amer) POC Glucose (mg/dL) 40 L Random Glucose Lactic Acid Calcium Phosphorus Magnesium Total Bilirubin AST ALT Alkaline Phosphatase Troponin I Total Protein Albumin Globulin Albumin/Globulin Ratio Lipase Venous Blood Potassium Urine Color Yellow Urine Clarity Clear Urine pH 5.0 Ur Specific [place] 1.036 H Urine Protein 1+ H Urine Glucose (UA) 3+ H Urine Ketones Negative Urine Blood 1+ H Urine Nitrate Negative Urine Bilirubin Negative Urine Urobilinogen Normal Ur Leukocyte Esterase Neg Urine WBC (Auto) 5 Urine RBC (Auto) 1 Ur Squamous Epith Cells 1 Urine Opiates Screen Negative Urine Methadone Screen Negative Ur Barbiturates Screen Negative Ur Phencyclidine Scrn Negative Ur Amphetamines Screen Negative U Benzodiazepines Scrn Negative U Oth Cocaine Metabols Negative U Cannabinoids Screen Negative Hepatitis A IgM Ab Hep Bs Antigen Hep B Core IgM Ab Hepatitis C Antibody HIV 1&2 Antibody Screen Blood Type Antibody Screen 10/23/18 10/23/18 10/23/18 21:09 21:23 21:29 WBC RBC Hgb Hct MCV MCH MCHC RDW Plt Count MPV Neutrophils % (Manual) Band Neutrophils % Lymphocytes % (Manual) Reactive Lymphs % Monocytes % (Manual) Platelet Estimate RBC Morphology PT INR APTT pO2 VBG pH VBG pCO2 VBG HCO3 VBG Total CO2 VBG O2 Sat (Calc) VBG Base Excess VBG Potassium Glucose Lactate Sodium Potassium Chloride Carbon Dioxide Anion Gap BUN Creatinine Est GFR ( Amer) Est GFR (Non-Af Amer) POC Glucose (mg/dL) 40 L 53 L Random Glucose Lactic Acid 4.4 H* Calcium Phosphorus Magnesium Total Bilirubin AST ALT Alkaline Phosphatase Troponin I Total Protein Albumin Globulin Albumin/Globulin Ratio Lipase Venous Blood Potassium Urine Color Urine Clarity Urine pH Ur Specific [place] Urine Protein Urine Glucose (UA) Urine Ketones Urine Blood Urine Nitrate Urine Bilirubin Urine Urobilinogen Ur Leukocyte Esterase Urine WBC (Auto) Urine RBC (Auto) Ur Squamous Epith Cells Urine Opiates Screen Urine Methadone Screen Ur Barbiturates Screen Ur Phencyclidine Scrn Ur Amphetamines Screen U Benzodiazepines Scrn U Oth Cocaine Metabols U Cannabinoids Screen Hepatitis A IgM Ab Hep Bs Antigen Hep B Core IgM Ab Hepatitis C Antibody HIV 1&2 Antibody Screen Blood Type Antibody Screen 10/23/18 21:32 WBC RBC Hgb Hct MCV MCH MCHC RDW Plt Count MPV Neutrophils % (Manual) Band Neutrophils % Lymphocytes % (Manual) Reactive Lymphs % Monocytes % (Manual) Platelet Estimate RBC Morphology PT INR APTT pO2 VBG pH VBG pCO2 VBG HCO3 VBG Total CO2 VBG O2 Sat (Calc) VBG Base Excess VBG Potassium Glucose Lactate Sodium Potassium Chloride Carbon Dioxide Anion Gap BUN Creatinine Est GFR ( Amer) Est GFR (Non-Af Amer) POC Glucose (mg/dL) 53 L Random Glucose Lactic Acid Calcium Phosphorus Magnesium Total Bilirubin AST ALT Alkaline Phosphatase Troponin I Total Protein Albumin Globulin Albumin/Globulin Ratio Lipase Venous Blood Potassium Urine Color Urine Clarity Urine pH Ur Specific [place] Urine Protein Urine Glucose (UA) Urine Ketones Urine Blood Urine Nitrate Urine Bilirubin Urine Urobilinogen Ur Leukocyte Esterase Urine WBC (Auto) Urine RBC (Auto) Ur Squamous Epith Cells Urine Opiates Screen Urine Methadone Screen Ur Barbiturates Screen Ur Phencyclidine Scrn Ur Amphetamines Screen U Benzodiazepines Scrn U Oth Cocaine Metabols U Cannabinoids Screen Hepatitis A IgM Ab Hep Bs Antigen Hep B Core IgM Ab Hepatitis C Antibody HIV 1&2 Antibody Screen Blood Type Antibody Screen
[2018-10-24] MEDS: Lactated Ringer's 1,000 ML IV SCH ×4 (00:03→20:30)
[2018-10-24] MEDS: Potassium Chloride 20 mEq ER Tab PO SCH ×5 (01:00→18:06)
[2018-10-24] MEDS: Piperacillin/Tazobact 3.375 GM in Sodium Chloride 100 ML IVPB SCH ×2 (02:30→21:32)
[2018-10-24] MEDS ORDERED: Vancomycin 1 gm/NS 200 ml 1 GM/200 ML BAG IVPB SCH (04:30)
[2018-10-24 06:06] LABS: BASO % 0.2 % (0.0-2.0); HEMOGLOBIN 11.6 g/dL (12.0-18.0); LYMPH # 0.2 K/uL (1.0-4.3); LYMPH % 0.8 % (20.0-40.0); MEAN CELL VOLUME 91.6 fL (80.0-94.0); MEAN CORPUSCULAR HEMOGLOBIN 32.1 pg (27.0-31.0); MEAN CORPUSCULAR HGB CONC 35.1 g/dL (33.0-37.0); MONO # 1.8 K/uL (0.0-0.8); MONO % 8.8 % (0.0-10.0); NEUT # 18.2 K/uL (1.8-7.0); NEUT % 90.2 % (50.0-75.0); NRBC % 0.1 % (0.0-2.0); PLATELET COUNT 62 K/uL (130-400); RBC 3.61 Mil/uL (4.40-5.90); RED CELL DISTRIBUTION WIDTH 13.1 % (11.5-14.5)
[2018-10-24 06:21] LABS: WHITE BLOOD COUNT 20.2 K/uL (4.8-10.8)
[2018-10-24 06:38] LABS: ALB/GLOB RATIO 1.1 (1.0-2.1); ALBUMIN 3.2 g/dL (3.5-5.0); ALT/SGPT 25 U/L (21-72); AST/SGOT 56 U/L (17-59); BLOOD UREA NITROGEN 9 mg/dL (9-20); GFR NON-AFRICAN AMERICAN > 60
[2018-10-24] MEDS: Magnesium Sulfate 1 gm in D5W 1 GM/100 ML BAG IVPB SCH ×2 (07:00→07:35)
[2018-10-24] MEDS ORDERED: Potassium Phosphate 15 MMOLE in Dextrose 5% In Water 250 ML IVPB ONE (07:01)
[2018-10-24] MEDS: (Novolin R) Insulin Human Regular 100 units/ml vial SC SCH ×4 (07:42→22:37)
[2018-10-24] MEDS ORDERED: Bismuth Subsalicylate 262 mg Chew Tab PO PRN (08:00)
[2018-10-24] MEDS: (Novolog Mix 70/30) Insulin Aspart/Insulin Aspar 100 units/ml SC SCH ×2 (08:00→16:35)
[2018-10-24] MEDS: metroNIDAZOLE IV 500 mg/100 ml 500 MG/100 ML BAG IVPB SCH ×2 (08:00→16:32)
[2018-10-24 08:16] LABS: BANDS 23 % (0-2); MONOCYTE 6 % (0-10); NEUTROPHIL 71 % (50-75); PLATELET ESTIMATE DECREASED (NORMAL); TOTAL CELLS COUNTED 100
[2018-10-24 08:17] LABS: ANISOCYTOSIS SLIGHT; BURR CELLS SLIGHT; HYPOCHROMIC SLIGHT; MICROCYTOSIS SLIGHT; POIKILOCYTOSIS SLIGHT; TARGET CELLS SLIGHT
[2018-10-24 08:18] LABS: ACANTHOCYTES SLIGHT; LARGE PLATELETS PRESENT
[2018-10-24] MEDS ORDERED: Dextrose 50% SYRINGE Inj (50 ml) IV PRN (08:45)
--- NOTE | 2018-10-24 20:43 | CP.PCM.CON ---
History of Present Illness - History of Present Illness History of Present Illness: 52 year old male with no past medical history, admitted s/p syncopal episode with pancytopenia and abdominal lesion. The patient notes to falling to the floor yesterday and does not remember the event. His brother found him and brought him to the hospital. He notes to diminished appetite at times and has lost some weight. He was drinking heavily in the past but notes to his last drink about 1 month ago. He denies abnormal bleeding and bruising. A CT A/P revealed an abdominal lesion displacing the aorta. Past medical history: None Past surgical history: Denies Family history: Denies hematologic and oncologic problems Social history: 1ppd x 35 years, alcohol 1 month ago Allergies: Aspirin Review of systems: All remaining review of systems including HEENT, cardiovascular, respiratory, gastrointestinal, genitourinary, musculoskeletal, dermatologic, neurologic, and psychiatric are negative unless mentioned in the HPI. Past Patient History - Infectious Disease Hx of Infectious Diseases: None - Past Medical History & Family History Past Medical History?: Yes - Past Social History Smoking Status: Heavy Smoker > 10 Cigarettes Daily - CARDIAC Hx Cardiac Disorders: Yes Hx Hypertension: Yes - PULMONARY Hx Respiratory Disorders: No - NEUROLOGICAL Hx Neurological Disorder: Yes Hx Syncope: Yes - HEENT Hx HEENT Problems: No - RENAL Hx Chronic Kidney Disease: No - ENDOCRINE/METABOLIC Hx Endocrine Disorders: Yes Hx Diabetes Mellitus Type 1: Yes - HEMATOLOGICAL/ONCOLOGICAL Hx Blood Disorders: No - INTEGUMENTARY Hx Dermatological Problems: No - MUSCULOSKELETAL/RHEUMATOLOGICAL Hx Musculoskeletal Disorders: No - GASTROINTESTINAL Hx Gastrointestinal Disorders: No - GENITOURINARY/GYNECOLOGICAL Hx Genitourinary Disorders: No - PSYCHIATRIC Hx Psychophysiologic Disorder: No Hx Substance Use: No - SURGICAL HISTORY Hx Surgeries: Yes Hx Splenectomy: Yes () Hx Vascular Surgery: Yes Other/Comment: as per pt,"spleen sx, lungs, and filter to R groin for DVT" - ANESTHESIA Hx Anesthesia: No Hx Anesthesia Reactions: No Hx Malignant Hyperthermia: No Has any member of the family had a problem w/ anesthesia?: No Meds Allergies/Adverse Reactions: Allergies Allergy/AdvReac Type Severity Reaction Status Date / Time aspirin Allergy Verified 10/23/18 12:58 - Medications Medications: Current Medications Acetaminophen (Tylenol 325mg Tab) 650 mg PO Q6 PRN PRN Reason: Fever >100.4 F Last Admin: 10/24/18 05:14 Dose: 650 mg Bismuth Subsalicylate (Pepto Bismol) 262 mg PO Q4H PRN PRN Reason: Diarrhea Dextrose (Glutose 15) 0 gm PO ONCE PRN; Protocol PRN Reason: Hypoglycemia Protocol Last Admin: 10/24/18 08:49 Dose: 15 gm Dextrose (Dextrose 50% Inj) 50 ml IV PRN PRN; Protocol PRN Reason: Hypoglycemia Protocol Glucagon (Glucagen Diagnostic Kit) 0 mg IM STAT PRN; Protocol PRN Reason: Hypoglycemia Protocol Lactated Ringer's (Lactated Ringer's) 1,000 mls @ 150 mls/hr IV .Q6H40M [facility] Last Admin: 10/24/18 13:05 Dose: Not Given Dextrose (Dextrose 5% In Water 1000 Ml) 1,000 mls @ 0 mls/hr IV .Q0M PRN; Protocol PRN Reason: Hypoglycemia Protocol Metronidazole (Flagyl) 500 mg in 100 mls @ 100 mls/hr IVPB Q8H [facility]; Protocol Last Admin: 10/24/18 16:32 Dose: 100 mls/hr Vancomycin/Sodium Chloride (Vancomycin 1 Gm/Ns 200 Ml) 1 gm in 200 mls @ 133 mls/hr IVPB Q12H [facility]; Protocol Stop: 10/29/18 18:46 Piperacillin Sod/Tazobactam (Sod 3.375 gm/ Sodium Chloride) 100 mls @ 200 mls/hr IVPB Q6H [facility]; Protocol Insulin Aspart (Novolog Mix 70/30 (70/30 Units/Ml)) 14 units SC BIDCC [facility] Last Admin: 10/24/18 16:35 Dose: Not Given Insulin Human Regular (Novolin R) 0 unit SC ACHS [facility]; Protocol Last Admin: 10/24/18 16:34 Dose: Not Given Pneumococcal Polyvalent Vaccine (Pneumovax 23 Vaccine) 0.5 ml IM .ONCE ONE Stop: 10/26/18 10:01 Potassium Chloride (K-Dur 20 Meq Er Tab) 40 meq PO Q6H [facility] Stop: 10/25/18 01:01 Last Admin: 10/24/18 18:06 Dose: Not Given Physical Exam - Head Exam Head Exam: ATRAUMATIC - Eye Exam Eye Exam: Normal appearance - ENT Exam ENT Exam: Mucous Membranes Dry - Respiratory Exam Respiratory Exam: NORMAL BREATHING PATTERN - Cardiovascular Exam Cardiovascular Exam: +S1, +S2 - GI/Abdominal Exam GI & Abdominal Exam: Normal Bowel Sounds - Extremities Exam Extremities exam: Positive for: normal inspection - Neurological Exam Neurological exam: Oriented x3 - Psychiatric Exam Psychiatric exam: Normal Affect, Normal Mood - Skin Skin Exam: Warm Results - Vital Signs Recent Vital Signs: Last Vital Signs Temp 99.6 F 10/24/18 06:14 Pulse 101 H 10/24/18 04:00 Resp 21 10/24/18 04:00 BP 90/52 L 10/24/18 04:00 Pulse Ox 97 10/24/18 04:00 - Labs Result Diagrams: 10/24/18 05:52 10/24/18 05:52 Labs: Laboratory Results - last 24 hr 10/23/18 10/23/18 10/23/18 20:10 20:10 20:41 WBC RBC Hgb Hct MCV MCH MCHC RDW Plt Count MPV Neut % (Auto) Lymph % (Auto) [place] % (Auto) Eos % (Auto) Baso % (Auto) Neut # (Auto) Lymph # (Auto) [place] # (Auto) Eos # (Auto) Baso # (Auto) Neutrophils % (Manual) Band Neutrophils % Lymphocytes % (Manual) Monocytes % (Manual) Platelet Estimate Large Platelets Hypochromasia (manual) Poikilocytosis (manual Anisocytosis (manual) Microcytosis (manual) Target Cells [place] Cells Acanthocytes (Spur) Sodium Potassium Chloride Carbon Dioxide Anion Gap BUN Creatinine Est GFR ( Amer) Est GFR (Non-Af Amer) POC Glucose (mg/dL) Random Glucose Lactic Acid Calcium Phosphorus Magnesium Total Bilirubin AST ALT Alkaline Phosphatase Total Protein Albumin Globulin Albumin/Globulin Ratio Urine Color Urine Clarity Urine pH Ur Specific [place] Urine Protein Urine Glucose (UA) Urine Ketones Urine Blood Urine Nitrate Urine Bilirubin Urine Urobilinogen Ur Leukocyte Esterase Urine WBC (Auto) Urine RBC (Auto) Ur Squamous Epith Cells Urine Opiates Screen Negative Urine Methadone Screen Negative Ur Barbiturates Screen Negative Ur Phencyclidine Scrn Negative Ur Amphetamines Screen Negative U Benzodiazepines Scrn Negative U Oth Cocaine Metabols Negative U Cannabinoids Screen Negative C. difficile Ag & Toxin Hepatitis A IgM Ab Negative Hep Bs Antigen Negative Hep B Core IgM Ab Negative Hepatitis C Antibody Negative HIV 1&2 Antibody Screen Negative 10/23/18 10/23/18 10/23/18 20:50 21:06 21:09 WBC RBC Hgb Hct MCV MCH MCHC RDW Plt Count MPV Neut % (Auto) Lymph % (Auto) [place] % (Auto) Eos % (Auto) Baso % (Auto) Neut # (Auto) Lymph # (Auto) [place] # (Auto) Eos # (Auto) Baso # (Auto) Neutrophils % (Manual) Band Neutrophils % Lymphocytes % (Manual) Monocytes % (Manual) Platelet Estimate Large Platelets Hypochromasia (manual) Poikilocytosis (manual Anisocytosis (manual) Microcytosis (manual) Target Cells [place] Cells Acanthocytes (Spur) Sodium Potassium Chloride Carbon Dioxide Anion Gap BUN Creatinine Est GFR ( Amer) Est GFR (Non-Af Amer) POC Glucose (mg/dL) 40 L 40 L Random Glucose Lactic Acid Calcium Phosphorus Magnesium Total Bilirubin AST ALT Alkaline Phosphatase Total Protein Albumin Globulin Albumin/Globulin Ratio Urine Color Yellow Urine Clarity Clear Urine pH 5.0 Ur Specific [place] 1.036 H Urine Protein 1+ H Urine Glucose (UA) 3+ H Urine Ketones Negative Urine Blood 1+ H Urine Nitrate Negative Urine Bilirubin Negative Urine Urobilinogen Normal Ur Leukocyte Esterase Neg Urine WBC (Auto) 5 Urine RBC (Auto) 1 Ur Squamous Epith Cells 1 Urine Opiates Screen Urine Methadone Screen Ur Barbiturates Screen Ur Phencyclidine Scrn Ur Amphetamines Screen U Benzodiazepines Scrn U Oth Cocaine Metabols U Cannabinoids Screen C. difficile Ag & Toxin Hepatitis A IgM Ab Hep Bs Antigen Hep B Core IgM Ab Hepatitis C Antibody HIV 1&2 Antibody Screen 10/23/18 10/23/18 10/23/18 21:23 21:29 21:32 WBC RBC Hgb Hct MCV MCH MCHC RDW Plt Count MPV Neut % (Auto) Lymph % (Auto) [place] % (Auto) Eos % (Auto) Baso % (Auto) Neut # (Auto) Lymph # (Auto) [place] # (Auto) Eos # (Auto) Baso # (Auto) Neutrophils % (Manual) Band Neutrophils % Lymphocytes % (Manual) Monocytes % (Manual) Platelet Estimate Large Platelets Hypochromasia (manual) Poikilocytosis (manual Anisocytosis (manual) Microcytosis (manual) Target Cells [place] Cells Acanthocytes (Spur) Sodium Potassium Chloride Carbon Dioxide Anion Gap BUN Creatinine Est GFR ( Amer) Est GFR (Non-Af Amer) POC Glucose (mg/dL) 53 L 53 L Random Glucose Lactic Acid 4.4 H* Calcium Phosphorus Magnesium Total Bilirubin AST ALT Alkaline Phosphatase Total Protein Albumin Globulin Albumin/Globulin Ratio Urine Color Urine Clarity Urine pH Ur Specific [place] Urine Protein Urine Glucose (UA) Urine Ketones Urine Blood Urine Nitrate Urine Bilirubin Urine Urobilinogen Ur Leukocyte Esterase Urine WBC (Auto) Urine RBC (Auto) Ur Squamous Epith Cells Urine Opiates Screen Urine Methadone Screen Ur Barbiturates Screen Ur Phencyclidine Scrn Ur Amphetamines Screen U Benzodiazepines Scrn U Oth Cocaine Metabols U Cannabinoids Screen C. difficile Ag & Toxin Hepatitis A IgM Ab Hep Bs Antigen Hep B Core IgM Ab Hepatitis C Antibody HIV 1&2 Antibody Screen 10/23/18 10/24/18 10/24/18 22:16 05:51 05:52 WBC 20.2 H D RBC 3.61 L Hgb 11.6 L Hct 33.1 L MCV 91.6 MCH 32.1 H MCHC 35.1 RDW 13.1 Plt Count 62 L MPV 12.0 H Neut % (Auto) 90.2 H Lymph % (Auto) 0.8 L [place] % (Auto) 8.8 Eos % (Auto) 0.0 Baso % (Auto) 0.2 Neut # (Auto) 18.2 H Lymph # (Auto) 0.2 L [place] # (Auto) 1.8 H Eos # (Auto) 0.0 Baso # (Auto) 0.0 Neutrophils % (Manual) 71 Band Neutrophils % 23 H* Lymphocytes % (Manual) TEST NOT PERFORMED Monocytes % (Manual) 6 Platelet Estimate Decreased L Large Platelets Present Hypochromasia (manual) Slight Poikilocytosis (manual Slight Anisocytosis (manual) Slight Microcytosis (manual) Slight Target Cells Slight [place] Cells Slight Acanthocytes (Spur) Slight Sodium Potassium Chloride Carbon Dioxide Anion Gap BUN Creatinine Est GFR ( Amer) Est GFR (Non-Af Amer) POC Glucose (mg/dL) 112 H Random Glucose Lactic Acid 3.2 H Calcium Phosphorus Magnesium Total Bilirubin AST ALT Alkaline Phosphatase Total Protein Albumin Globulin Albumin/Globulin Ratio Urine Color Urine Clarity Urine pH Ur Specific [place] Urine Protein Urine Glucose (UA) Urine Ketones Urine Blood Urine Nitrate Urine Bilirubin Urine Urobilinogen Ur Leukocyte Esterase Urine WBC (Auto) Urine RBC (Auto) Ur Squamous Epith Cells Urine Opiates Screen Urine Methadone Screen Ur Barbiturates Screen Ur Phencyclidine Scrn Ur Amphetamines Screen U Benzodiazepines Scrn U Oth Cocaine Metabols U Cannabinoids Screen C. difficile Ag & Toxin Hepatitis A IgM Ab Hep Bs Antigen Hep B Core IgM Ab Hepatitis C Antibody HIV 1&2 Antibody Screen 10/24/18 10/24/18 10/24/18 05:52 05:55 07:27 WBC RBC Hgb Hct MCV MCH MCHC RDW Plt Count MPV Neut % (Auto) Lymph % (Auto) [place] % (Auto) Eos % (Auto) Baso % (Auto) Neut # (Auto) Lymph # (Auto) [place] # (Auto) Eos # (Auto) Baso # (Auto) Neutrophils % (Manual) Band Neutrophils % Lymphocytes % (Manual) Monocytes % (Manual) Platelet Estimate Large Platelets Hypochromasia (manual) Poikilocytosis (manual Anisocytosis (manual) Microcytosis (manual) Target Cells [place] Cells Acanthocytes (Spur) Sodium 137 Potassium 2.5 L* Chloride 105 Carbon Dioxide 25 Anion Gap 11 BUN 9 Creatinine 0.7 L Est GFR ( Amer) > 60 Est GFR (Non-Af Amer) > 60 POC Glucose (mg/dL) 31 L* Random Glucose 54 L Lactic Acid Calcium 8.0 L Phosphorus 2.1 L Magnesium 1.8 Total Bilirubin 0.4 AST 56 ALT 25 Alkaline Phosphatase 53 Total Protein 6.0 L Albumin 3.2 L Globulin 2.8 Albumin/Globulin Ratio 1.1 Urine Color Urine Clarity Urine pH Ur Specific [place] Urine Protein Urine Glucose (UA) Urine Ketones Urine Blood Urine Nitrate Urine Bilirubin Urine Urobilinogen Ur Leukocyte Esterase Urine WBC (Auto) Urine RBC (Auto) Ur Squamous Epith Cells Urine Opiates Screen Urine Methadone Screen Ur Barbiturates Screen Ur Phencyclidine Scrn Ur Amphetamines Screen U Benzodiazepines Scrn U Oth Cocaine Metabols U Cannabinoids Screen C. difficile Ag & Toxin Negative Hepatitis A IgM Ab Hep Bs Antigen Hep B Core IgM Ab Hepatitis C Antibody HIV 1&2 Antibody Screen 10/24/18 10/24/18 10/24/18 07:28 07:54 07:55 WBC RBC Hgb Hct MCV MCH MCHC RDW Plt Count MPV Neut % (Auto) Lymph % (Auto) [place] % (Auto) Eos % (Auto) Baso % (Auto) Neut # (Auto) Lymph # (Auto) [place] # (Auto) Eos # (Auto) Baso # (Auto) Neutrophils % (Manual) Band Neutrophils % Lymphocytes % (Manual) Monocytes % (Manual) Platelet Estimate Large Platelets Hypochromasia (manual) Poikilocytosis (manual Anisocytosis (manual) Microcytosis (manual) Target Cells [place] Cells Acanthocytes (Spur) Sodium Potassium Chloride Carbon Dioxide Anion Gap BUN Creatinine Est GFR ( Amer) Est GFR (Non-Af Amer) POC Glucose (mg/dL) 42 L 57 L 57 L Random Glucose Lactic Acid Calcium Phosphorus Magnesium Total Bilirubin AST ALT Alkaline Phosphatase Total Protein Albumin Globulin Albumin/Globulin Ratio Urine Color Urine Clarity Urine pH Ur Specific [place] Urine Protein Urine Glucose (UA) Urine Ketones Urine Blood Urine Nitrate Urine Bilirubin Urine Urobilinogen Ur Leukocyte Esterase Urine WBC (Auto) Urine RBC (Auto) Ur Squamous Epith Cells Urine Opiates Screen Urine Methadone Screen Ur Barbiturates Screen Ur Phencyclidine Scrn Ur Amphetamines Screen U Benzodiazepines Scrn U Oth Cocaine Metabols U Cannabinoids Screen C. difficile Ag & Toxin Hepatitis A IgM Ab Hep Bs Antigen Hep B Core IgM Ab Hepatitis C Antibody HIV 1&2 Antibody Screen 10/24/18 10/24/18 10/24/18 09:00 11:32 16:34 WBC RBC Hgb Hct MCV MCH MCHC RDW Plt Count MPV Neut % (Auto) Lymph % (Auto) [place] % (Auto) Eos % (Auto) Baso % (Auto) Neut # (Auto) Lymph # (Auto) [place] # (Auto) Eos # (Auto) Baso # (Auto) Neutrophils % (Manual) Band Neutrophils % Lymphocytes % (Manual) Monocytes % (Manual) Platelet Estimate Large Platelets Hypochromasia (manual) Poikilocytosis (manual Anisocytosis (manual) Microcytosis (manual) Target Cells [place] Cells Acanthocytes (Spur) Sodium Potassium Chloride Carbon Dioxide Anion Gap BUN Creatinine Est GFR ( Amer) Est GFR (Non-Af Amer) POC Glucose (mg/dL) 144 H 111 H 107 Random Glucose Lactic Acid Calcium Phosphorus Magnesium Total Bilirubin AST ALT Alkaline Phosphatase Total Protein Albumin Globulin Albumin/Globulin Ratio Urine Color Urine Clarity Urine pH Ur Specific [place] Urine Protein Urine Glucose (UA) Urine Ketones Urine Blood Urine Nitrate Urine Bilirubin Urine Urobilinogen Ur Leukocyte Esterase Urine WBC (Auto) Urine RBC (Auto) Ur Squamous Epith Cells Urine Opiates Screen Urine Methadone Screen Ur Barbiturates Screen Ur Phencyclidine Scrn Ur Amphetamines Screen U Benzodiazepines Scrn U Oth Cocaine Metabols U Cannabinoids Screen C. difficile Ag & Toxin Hepatitis A IgM Ab Hep Bs Antigen Hep B Core IgM Ab Hepatitis C Antibody HIV 1&2 Antibody Screen Assessment & Plan (1) Pancytopenia Assessment and Plan: leukopenia/neutropenia resolved ? alcohol anemia w/u sent chronic thrombocytopenia ?liver disease Status: Acute (2) Abdominal mass Assessment and Plan: MRI of the abdomen for further evaluation Thank you for this interesting consult. Status: Acute
[2018-10-24] MEDS: Vancomycin 1 gm/NS 200 ml 1 GM/200 ML BAG IVPB SCH (22:38)
--- NOTE | 2018-10-24 22:43 | CP.PCM.CON ---
History of Present Illness - History of Present Illness History of Present Illness: INFECTIOUS DISEASE CONSULT; CHART REVIEWED, RADIOLOGY REVIEWED CONSULT DICTATED; DICT NO #[id number]. Past Patient History - Infectious Disease Hx of Infectious Diseases: None - Past Medical History & Family History Past Medical History?: Yes - Past Social History Smoking Status: Heavy Smoker > 10 Cigarettes Daily - CARDIAC Hx Cardiac Disorders: Yes Hx Hypertension: Yes - PULMONARY Hx Respiratory Disorders: No - NEUROLOGICAL Hx Neurological Disorder: Yes Hx Syncope: Yes - HEENT Hx HEENT Problems: No - RENAL Hx Chronic Kidney Disease: No - ENDOCRINE/METABOLIC Hx Endocrine Disorders: Yes Hx Diabetes Mellitus Type 1: Yes - HEMATOLOGICAL/ONCOLOGICAL Hx Blood Disorders: No - INTEGUMENTARY Hx Dermatological Problems: No - MUSCULOSKELETAL/RHEUMATOLOGICAL Hx Musculoskeletal Disorders: No - GASTROINTESTINAL Hx Gastrointestinal Disorders: No - GENITOURINARY/GYNECOLOGICAL Hx Genitourinary Disorders: No - PSYCHIATRIC Hx Psychophysiologic Disorder: No Hx Substance Use: No - SURGICAL HISTORY Hx Surgeries: Yes Hx Splenectomy: Yes () Hx Vascular Surgery: Yes Other/Comment: as per pt,"spleen sx, lungs, and filter to R groin for DVT" - ANESTHESIA Hx Anesthesia: No Hx Anesthesia Reactions: No Hx Malignant Hyperthermia: No Has any member of the family had a problem w/ anesthesia?: No Meds Allergies/Adverse Reactions: Allergies Allergy/AdvReac Type Severity Reaction Status Date / Time aspirin Allergy Verified 10/23/18 12:58 - Medications Medications: Current Medications Acetaminophen (Tylenol 325mg Tab) 650 mg PO Q6 PRN PRN Reason: Fever >100.4 F Last Admin: 10/24/18 05:14 Dose: 650 mg Bismuth Subsalicylate (Pepto Bismol) 262 mg PO Q4H PRN PRN Reason: Diarrhea Dextrose (Glutose 15) 0 gm PO ONCE PRN; Protocol PRN Reason: Hypoglycemia Protocol Last Admin: 10/24/18 08:49 Dose: 15 gm Dextrose (Dextrose 50% Inj) 50 ml IV PRN PRN; Protocol PRN Reason: Hypoglycemia Protocol Glucagon (Glucagen Diagnostic Kit) 0 mg IM STAT PRN; Protocol PRN Reason: Hypoglycemia Protocol Lactated Ringer's (Lactated Ringer's) 1,000 mls @ 150 mls/hr IV .Q6H40M [facility] Last Admin: 10/24/18 20:30 Dose: Not Given Dextrose (Dextrose 5% In Water 1000 Ml) 1,000 mls @ 0 mls/hr IV .Q0M [facility]; Protocol PRN Reason: Hypoglycemia Protocol Metronidazole (Flagyl) 500 mg in 100 mls @ 100 mls/hr IVPB Q8H [facility]; Protocol Last Admin: 10/24/18 16:32 Dose: 100 mls/hr Vancomycin/Sodium Chloride (Vancomycin 1 Gm/Ns 200 Ml) 1 gm in 200 mls @ 133 mls/hr IVPB Q12H [facility]; Protocol Stop: 10/29/18 18:46 Last Admin: 10/24/18 22:38 Dose: 133 mls/hr Piperacillin Sod/Tazobactam (Sod 3.375 gm/ Sodium Chloride) 100 mls @ 200 mls/hr IVPB Q6H [facility]; Protocol Last Admin: 10/24/18 21:32 Dose: 200 mls/hr Insulin Aspart (Novolog Mix 70/30 (70/30 Units/Ml)) 14 units SC BIDCC [facility] Last Admin: 10/24/18 16:35 Dose: Not Given Insulin Human Regular (Novolin R) 0 unit SC ACHS [facility]; Protocol Last Admin: 10/24/18 22:37 Dose: Not Given Pneumococcal Polyvalent Vaccine (Pneumovax 23 Vaccine) 0.5 ml IM .ONCE ONE Stop: 10/26/18 10:01 Potassium Chloride (K-Dur 20 Meq Er Tab) 40 meq PO Q6H [facility] Stop: 10/25/18 01:01 Last Admin: 10/24/18 18:06 Dose: Not Given Results - Vital Signs Recent Vital Signs: Last Vital Signs Temp 99.6 F 10/24/18 06:14 Pulse 101 H 10/24/18 04:00 Resp 21 10/24/18 04:00 BP 90/52 L 10/24/18 04:00 Pulse Ox 97 10/24/18 04:00 - Labs Result Diagrams: 10/26/18 11:41 10/26/18 11:41 Labs: Laboratory Results - last 24 hr 10/24/18 10/24/18 10/24/18 05:51 05:52 05:52 WBC 20.2 H D RBC 3.61 L Hgb 11.6 L Hct 33.1 L MCV 91.6 MCH 32.1 H MCHC 35.1 RDW 13.1 Plt Count 62 L MPV 12.0 H Neut % (Auto) 90.2 H Lymph % (Auto) 0.8 L [place] % (Auto) 8.8 Eos % (Auto) 0.0 Baso % (Auto) 0.2 Neut # (Auto) 18.2 H Lymph # (Auto) 0.2 L [place] # (Auto) 1.8 H Eos # (Auto) 0.0 Baso # (Auto) 0.0 Neutrophils % (Manual) 71 Band Neutrophils % 23 H* Lymphocytes % (Manual) TEST NOT PERFORMED Monocytes % (Manual) 6 Platelet Estimate Decreased L Large Platelets Present Hypochromasia (manual) Slight Poikilocytosis (manual Slight Anisocytosis (manual) Slight Microcytosis (manual) Slight Target Cells Slight [place] Cells Slight Acanthocytes (Spur) Slight Sodium 137 Potassium 2.5 L* Chloride 105 Carbon Dioxide 25 Anion Gap 11 BUN 9 Creatinine 0.7 L Est GFR ( Amer) > 60 Est GFR (Non-Af Amer) > 60 POC Glucose (mg/dL) Random Glucose 54 L Lactic Acid 3.2 H Calcium 8.0 L Phosphorus 2.1 L Magnesium 1.8 Total Bilirubin 0.4 AST 56 ALT 25 Alkaline Phosphatase 53 Total Protein 6.0 L Albumin 3.2 L Globulin 2.8 Albumin/Globulin Ratio 1.1 C. difficile Ag & Toxin 10/24/18 10/24/18 10/24/18 05:55 07:27 07:28 WBC RBC Hgb Hct MCV MCH MCHC RDW Plt Count MPV Neut % (Auto) Lymph % (Auto) [place] % (Auto) Eos % (Auto) Baso % (Auto) Neut # (Auto) Lymph # (Auto) [place] # (Auto) Eos # (Auto) Baso # (Auto) Neutrophils % (Manual) Band Neutrophils % Lymphocytes % (Manual) Monocytes % (Manual) Platelet Estimate Large Platelets Hypochromasia (manual) Poikilocytosis (manual Anisocytosis (manual) Microcytosis (manual) Target Cells [place] Cells Acanthocytes (Spur) Sodium Potassium Chloride Carbon Dioxide Anion Gap BUN Creatinine Est GFR ( Amer) Est GFR (Non-Af Amer) POC Glucose (mg/dL) 31 L* 42 L Random Glucose Lactic Acid Calcium Phosphorus Magnesium Total Bilirubin AST ALT Alkaline Phosphatase Total Protein Albumin Globulin Albumin/Globulin Ratio C. difficile Ag & Toxin Negative 10/24/18 10/24/18 10/24/18 07:54 07:55 09:00 WBC RBC Hgb Hct MCV MCH MCHC RDW Plt Count MPV Neut % (Auto) Lymph % (Auto) [place] % (Auto) Eos % (Auto) Baso % (Auto) Neut # (Auto) Lymph # (Auto) [place] # (Auto) Eos # (Auto) Baso # (Auto) Neutrophils % (Manual) Band Neutrophils % Lymphocytes % (Manual) Monocytes % (Manual) Platelet Estimate Large Platelets Hypochromasia (manual) Poikilocytosis (manual Anisocytosis (manual) Microcytosis (manual) Target Cells [place] Cells Acanthocytes (Spur) Sodium Potassium Chloride Carbon Dioxide Anion Gap BUN Creatinine Est GFR ( Amer) Est GFR (Non-Af Amer) POC Glucose (mg/dL) 57 L 57 L 144 H Random Glucose Lactic Acid Calcium Phosphorus Magnesium Total Bilirubin AST ALT Alkaline Phosphatase Total Protein Albumin Globulin Albumin/Globulin Ratio C. difficile Ag & Toxin 10/24/18 10/24/18 11:32 16:34 WBC RBC Hgb Hct MCV MCH MCHC RDW Plt Count MPV Neut % (Auto) Lymph % (Auto) [place] % (Auto) Eos % (Auto) Baso % (Auto) Neut # (Auto) Lymph # (Auto) [place] # (Auto) Eos # (Auto) Baso # (Auto) Neutrophils % (Manual) Band Neutrophils % Lymphocytes % (Manual) Monocytes % (Manual) Platelet Estimate Large Platelets Hypochromasia (manual) Poikilocytosis (manual Anisocytosis (manual) Microcytosis (manual) Target Cells [place] Cells Acanthocytes (Spur) Sodium Potassium Chloride Carbon Dioxide Anion Gap BUN Creatinine Est GFR ( Amer) Est GFR (Non-Af Amer) POC Glucose (mg/dL) 111 H 107 Random Glucose Lactic Acid Calcium Phosphorus Magnesium Total Bilirubin AST ALT Alkaline Phosphatase Total Protein Albumin Globulin Albumin/Globulin Ratio C. difficile Ag & Toxin
--- NOTE | 2018-10-24 22:47 | CP.PCM.PN ---
Subjective - Date & Time of Evaluation Date of Evaluation: 10/24/18 Time of Evaluation: 09:20 - Subjective Subjective: dictated Objective - Vital Signs/Intake and Output Vital Signs (last 24 hours): Temp Pulse Resp BP Pulse Ox 99.6 F 101 H 21 90/52 L 97 10/24/18 06:14 10/24/18 04:00 10/24/18 04:00 10/24/18 04:00 10/24/18 04:00 - Medications Medications: Current Medications Acetaminophen (Tylenol 325mg Tab) 650 mg PO Q6 PRN PRN Reason: Fever >100.4 F Last Admin: 10/24/18 05:14 Dose: 650 mg Bismuth Subsalicylate (Pepto Bismol) 262 mg PO Q4H PRN PRN Reason: Diarrhea Dextrose (Glutose 15) 0 gm PO ONCE PRN; Protocol PRN Reason: Hypoglycemia Protocol Last Admin: 10/24/18 08:49 Dose: 15 gm Dextrose (Dextrose 50% Inj) 50 ml IV PRN PRN; Protocol PRN Reason: Hypoglycemia Protocol Glucagon (Glucagen Diagnostic Kit) 0 mg IM STAT PRN; Protocol PRN Reason: Hypoglycemia Protocol Lactated Ringer's (Lactated Ringer's) 1,000 mls @ 150 mls/hr IV .Q6H40M [facility] Last Admin: 10/24/18 20:30 Dose: Not Given Dextrose (Dextrose 5% In Water 1000 Ml) 1,000 mls @ 0 mls/hr IV .Q0M PRN; Protocol PRN Reason: Hypoglycemia Protocol Metronidazole (Flagyl) 500 mg in 100 mls @ 100 mls/hr IVPB Q8H [facility]; Protocol Last Admin: 10/24/18 16:32 Dose: 100 mls/hr Vancomycin/Sodium Chloride (Vancomycin 1 Gm/Ns 200 Ml) 1 gm in 200 mls @ 133 mls/hr IVPB Q12H [facility]; Protocol Stop: 10/29/18 18:46 Last Admin: 10/24/18 22:38 Dose: 133 mls/hr Piperacillin Sod/Tazobactam (Sod 3.375 gm/ Sodium Chloride) 100 mls @ 200 mls/hr IVPB Q6H [facility]; Protocol Last Admin: 10/24/18 21:32 Dose: 200 mls/hr Insulin Aspart (Novolog Mix 70/30 (70/30 Units/Ml)) 14 units SC BIDCC [facility] Last Admin: 10/24/18 16:35 Dose: Not Given Insulin Human Regular (Novolin R) 0 unit SC ACHS [facility]; Protocol Last Admin: 10/24/18 22:37 Dose: Not Given Pneumococcal Polyvalent Vaccine (Pneumovax 23 Vaccine) 0.5 ml IM .ONCE ONE Stop: 10/26/18 10:01 Potassium Chloride (K-Dur 20 Meq Er Tab) 40 meq PO Q6H [facility] Stop: 10/25/18 01:01 Last Admin: 10/24/18 18:06 Dose: Not Given - Labs Labs: 10/24/18 05:52 10/24/18 05:52 PT 13.8 SECONDS (9.7-12.2) H 10/23/18 13:15 INR 1.3 10/23/18 13:15 APTT 25 SECONDS (21-34) 10/23/18 13:15
[2018-10-25] MEDS: metroNIDAZOLE IV 500 mg/100 ml 500 MG/100 ML BAG IVPB SCH ×3 (00:59→16:19)
[2018-10-25] MEDS: Potassium Chloride 20 mEq ER Tab PO SCH (01:06)
[2018-10-25] MEDS: Piperacillin/Tazobact 3.375 GM in Sodium Chloride 100 ML IVPB SCH ×4 (02:05→18:23)
--- NOTE | 2018-10-25 03:46 | PN ---
DATE: 10/24/2018 SUBJECTIVE: The patient has generalized weakness. The patient is afebrile. He is noncompliant with his diet, medication, and followup. The patient was noncompliant with his insulin and he had low grade fever. He denies any abdominal pain. He denies any nausea or vomiting. Positive fever. Positive chills. No history of dysuria, hematuria, but the patient has polyuria, polydipsia, polyphagia. There is no cough or sore throat. PHYSICAL EXAMINATION: VITAL SIGNS: Blood pressure 90/52, pulse 101, respiratory rate 21, temperature 101. LUNGS: Clear. No rales. No rhonchi. CARDIOVASCULAR SYSTEM: S1, S2. Regular. ABDOMEN: Soft, nontender. Bowel sounds are positive. ASSESSMENT: 1. Poorly controlled diabetes, improving. 2. Fever, rule out septicemia. The patient is being seen by Infectious Disease. We will follow Infectious Disease recommendation. However, the patient was on Vancomycin, Flagyl and Zosyn. 3. Dehydration. 4. History of thrombocytopenia, history of pancreatic cancer, status post long time ago. PLAN: Continue current medications. Dennis Verdin MD
[2018-10-25] MEDS: Lactated Ringer's 1,000 ML IV SCH ×3 (04:49→22:18)
[2018-10-25] MEDS: Vancomycin 1 gm/NS 200 ml 1 GM/200 ML BAG IVPB SCH ×2 (06:57→19:21)
[2018-10-25 07:50] LABS: BASO # 0.4 K/uL (0.0-0.2); BASO % 1.9 % (0.0-2.0); EOS # 0.1 K/uL (0.0-0.7); EOS % 0.4 % (0.0-4.0); HEMOGLOBIN 11.1 g/dL (12.0-18.0); LYMPH # 0.9 K/uL (1.0-4.3); LYMPH % 4.8 % (20.0-40.0); MEAN CELL VOLUME 92.3 fL (80.0-94.0); MEAN CORPUSCULAR HEMOGLOBIN 31.7 pg (27.0-31.0); MEAN CORPUSCULAR HGB CONC 34.3 g/dL (33.0-37.0); MEAN PLATELET VOLUME 12.7 fL (7.2-11.7); MONO # 1.3 K/uL (0.0-0.8); NEUT # 16.4 K/uL (1.8-7.0); NEUT % 85.9 % (50.0-75.0); PLATELET COUNT 44 K/uL (130-400); RBC 3.49 Mil/uL (4.40-5.90); RED CELL DISTRIBUTION WIDTH 12.9 % (11.5-14.5); WHITE BLOOD COUNT 19.1 K/uL (4.8-10.8)
[2018-10-25 07:55] LABS: FOLATE 7.1 ng/mL
[2018-10-25 08:06] LABS: AMYLASE 41 U/L (30-110); BLOOD UREA NITROGEN 12 mg/dL (9-20); CALCIUM 7.8 mg/dl (8.6-10.4); GFR NON-AFRICAN AMERICAN > 60; LIPASE < 10 U/L (23-300)
[2018-10-25] MEDS: (Novolin R) Insulin Human Regular 100 units/ml vial SC SCH ×4 (08:39→21:25)
[2018-10-25 09:25] LABS: ANISOCYTOSIS SLIGHT; BANDS 14 % (0-2); HYPOCHROMIC SLIGHT; LYMPHOCYTE 3 % (20-40); MONOCYTE 8 % (0-10); NEUTROPHIL 75 % (50-75); PLATELET ESTIMATE DECREASED (NORMAL); TOTAL CELLS COUNTED 100
[2018-10-25 09:27] LABS: BURR CELLS MODERATE; POIKILOCYTOSIS MODERATE; TARGET CELLS SLIGHT
--- NOTE | 2018-10-25 09:56 | CARD ---
APPROVED REPORT Date of service: 10/23/2018 EKG Measurement Heart [id number] <Conclusion> Sinus tachycardia with short FL with premature atrial complexes Nonspecific ST and T wave abnormality Prolonged QT Abnormal ECG
--- NOTE | 2018-10-25 11:02 | CON ---
DATE: 10/24/2018 INFECTIOUS DISEASE CONSULTATION REQUESTED BY: Dennis Verdin MD DICTATION DONE BY: Vivian Sheppard MD REASON FOR CONSULTATION: Gram-positive cocci and gram-positive rods in blood cultures. The patient is status post sepsis code. HISTORY OF PRESENT ILLNESS: The patient is a 52-year-old male with past medical history of insulin-dependent diabetes mellitus, hypertension, history of splenectomy in 1979, who was admitted via the emergency room because of syncopal episode at home. The patient, as noted, had a syncopal episode at home and complains of some diffuse abdominal pain associated with nausea and constipation prior to the event. The patient was a code sepsis on admission and was an ICU admission. The patient today transferred to the floor. Infectious Disease consultation requested by PMD for sepsis and gram-positive rods and gram-positive cocci in the blood. Events of ICU noted. The patient was given fluids, he was hypotensive. The patient had a serum lactate of 7 with lactic acid of 3.2. Also, the patient was hypokalemic. The patient's white count today also noted to be up to 20,000 with a shift to the left and can be 23% bandemia. The patient [place] [address]. The patient still continues to have abdominal pain. A CAT scan of the abdomen and pelvis with IV contrast was obtained which showed cystic lesion or collection, displacing the aorta to the left, questionable cystic mass which is about 3.4 cm. Also noted was cystitis with a large prostate and prior splenectomy. See full report in the chart. The patient was empirically started on broad-spectrum antibiotics and Infectious Disease was called today because blood cultures x2 sets, both aerobic and anaerobic reported positive for gram-positive rods and gram-positive cocci in both aerobic and anaerobic bottles. The patient presently denies any nausea or vomiting, but does complain of constipation. The patient denies any shortness of breath, cough or chest pain. PAST MEDICAL HISTORY: As above, history of diabetes mellitus, insulin-dependent; hypertension; and history of splenectomy. PAST SURGICAL HISTORY: Consists of an IVC filter for DVT from the right groin. Also, history of splenectomy and some vascular surgery. SOCIAL HISTORY: He is a heavy smoker. Denies alcohol abuse. Denies any substance abuse. FAMILY HISTORY: Unremarkable. IMMUNIZATION HISTORY: The patient is not up-to-date on influenza vaccination or pneumococcal vaccination, but states he did get tetanus toxoid administered in 2015. REVIEW OF SYSTEMS: RESPIRATORY: Denies any shortness of breath or chest pain. CARDIOVASCULAR SYSTEM: Denies any palpitations or chest pain. GASTROINTESTINAL: Complains of some nausea, abdominal pain, constipation. Presently denies any vomiting or diarrhea. GENITOURINARY: Unremarkable. Denies dysuria or hematuria. MUSCULOSKELETAL: Moves all extremities. ELECTROCARDIOGRAPH OPERATOR: History of syncopal episode, but denies any focal weakness or numbness or paresthesias. SKIN: No history of any rash noted on the body. MEDICATIONS: As per chart reviewed. The patient is presently on Zosyn 3.375 every 8 hourly started on 10/23/2018, also vancomycin 1 g every 12 hourly started 10/24/2018, and Flagyl 500 mg IV every 8 hourly on 10/23/2018. PHYSICAL EXAMINATION: GENERAL: The patient is awake, in no acute distress. VITAL SIGNS: Presently, blood pressure 108/66, temperature 101 T-max, oxygen saturation 97% on 2 liters of nasal cannula, pulse is 101 per minute. HEENT: Pupils are equal and reacting to light and accommodation. Extraocular movements are full. Fundus negative. Sclerae nonicteric. Conjunctivae normal. JVP not elevated. NECK: Appears to be supple. No lymphadenopathy appreciated. LUNGS: Fair air entry. CARDIOVASCULAR SYSTEM: S1, S2. No murmur or gallop. ABDOMEN: Soft. Bowel sounds are present. Generalized tenderness mainly in the epigastric and left upper quadrant. Bowel sounds are present. EXTREMITIES: No cyanosis, clubbing, or edema. ELECTROCARDIOGRAPH OPERATOR: No gross deficits. Moves all extremities. Reflexes are equal and symmetrical. Speech is normal, just generalized weakness. LABORATORY DATA: WBC is 20.2, H and H of 11.6 and 33.1, platelets 62K, 23% bands. Creatinine 0.7, BUN of 9. Liver function test normal. Urinalysis is normal. Stool C. diff is negative. IMPRESSION: 1. Sepsis with hypertension. 2. Gram-positive cocci and gram-positive rods in blood, aerobic and anaerobic bottle, source most likely intra-abdominal collection versus abscess versus mass, questionable rule out carcinoma of the pancreas. 3. History of splenectomy, 1980. 4. History of diabetes mellitus. 5. Hypertension. 6. Hypokalemia. PLAN: Suggests adams cultures. Continue IV antibiotics for now with Zosyn 3.375 every 8 hourly started 10/23/2018 and vancomycin 1 g every 12 hourly, 10/23/2018. We will follow up vanco trough level prior to the fourth dose and keep it between 10 and 20 mg/L. Continue Flagyl 500 mg every 8 hourly for anaerobic coverage, started 10/24/2018. Follow up blood cultures to adjust antibiotics. We will follow up along with you and make any adjustments or changes in antibiotics as needed. The patient presently undergoing also hematology evaluation for thrombocytopenia. We will follow up with you. Thank you very much for allowing me to participate in the care of your patient. Vivian Sheppard MD
[2018-10-25] MEDS: (Novolog Mix 70/30) Insulin Aspart/Insulin Aspar 100 units/ml SC SCH ×2 (11:28→17:30)
[2018-10-25] MEDS ORDERED: Amikacin Sulfate 1,000 MG in Sodium Chloride 0.9% 250 ML IVPB SCH (12:00)
--- NOTE | 2018-10-25 18:17 | CP.PCM.PN ---
Subjective - Date & Time of Evaluation Date of Evaluation: 10/25/18 Time of Evaluation: 18:17 - Subjective Subjective: AFEBRILE,VSS FEELING BETTER, LESS ABDOMINAL PAIN NO N/OR VOMITING TODAY LABS ; BLOOD CULTURE 1:2 SET +VE GNR BLOOD CULTURE 1:2 SETS [facility] Objective - Vital Signs/Intake and Output Vital Signs (last 24 hours): Temp Pulse Resp BP Pulse Ox 97.9 F 65 20 127/80 98 10/25/18 16:00 10/25/18 16:00 10/25/18 16:00 10/25/18 16:00 10/25/18 16:00 Intake and Output: 10/25/18 10/25/18 06:59 18:59 Intake Total 1655 Balance 1655 - Medications Medications: Current Medications Acetaminophen (Tylenol 325mg Tab) 650 mg PO Q6 PRN PRN Reason: Fever >100.4 F Last Admin: 10/24/18 05:14 Dose: 650 mg Bismuth Subsalicylate (Pepto Bismol) 262 mg PO Q4H PRN PRN Reason: Diarrhea Dextrose (Glutose 15) 0 gm PO ONCE PRN; Protocol PRN Reason: Hypoglycemia Protocol Last Admin: 10/24/18 08:49 Dose: 15 gm Dextrose (Dextrose 50% Inj) 50 ml IV PRN PRN; Protocol PRN Reason: Hypoglycemia Protocol Glucagon (Glucagen Diagnostic Kit) 0 mg IM STAT PRN; Protocol PRN Reason: Hypoglycemia Protocol Lactated Ringer's (Lactated Ringer's) 1,000 mls @ 150 mls/hr IV .Q6H40M [facility] Last Admin: 10/25/18 16:20 Dose: Not Given Dextrose (Dextrose 5% In Water 1000 Ml) 1,000 mls @ 0 mls/hr IV .Q0M PRN; Protocol PRN Reason: Hypoglycemia Protocol Metronidazole (Flagyl) 500 mg in 100 mls @ 100 mls/hr IVPB Q8H [facility]; Protocol Last Admin: 10/25/18 16:19 Dose: 100 mls/hr Vancomycin/Sodium Chloride (Vancomycin 1 Gm/Ns 200 Ml) 1 gm in 200 mls @ 133 mls/hr IVPB Q12H [facility]; Protocol Stop: 10/29/18 18:46 Last Admin: 10/25/18 06:57 Dose: 133 mls/hr Piperacillin Sod/Tazobactam (Sod 3.375 gm/ Sodium Chloride) 100 mls @ 200 mls/hr IVPB Q6H [facility]; Protocol Last Admin: 10/25/18 14:44 Dose: 200 mls/hr Insulin Aspart (Novolog Mix 70/30 (70/30 Units/Ml)) 8 units SC BIDCC [facility] Insulin Human Regular (Novolin R) 0 unit SC ACHS [facility]; Protocol Last Admin: 10/25/18 12:21 Dose: Not Given Pantoprazole Sodium (Protonix Inj) 40 mg IVP Q12H [facility] Last Admin: 10/25/18 08:38 Dose: 40 mg Pneumococcal Polyvalent Vaccine (Pneumovax 23 Vaccine) 0.5 ml IM .ONCE ONE Stop: 10/26/18 10:01 - Labs Labs: 10/25/18 07:24 10/25/18 07:24 PT 13.8 SECONDS (9.7-12.2) H 10/23/18 13:15 INR 1.3 10/23/18 13:15 APTT 25 SECONDS (21-34) 10/23/18 13:15 - Constitutional Appears: No Acute Distress - Head Exam Head Exam: NORMAL INSPECTION - Eye Exam Eye Exam: EOMI, PERRL - ENT Exam ENT Exam: Normal Oropharynx - Neck Exam Neck Exam: Normal Inspection - Respiratory Exam Respiratory Exam: Clear to Ausculation Bilateral, NORMAL BREATHING PATTERN - Cardiovascular Exam Cardiovascular Exam: REGULAR RHYTHM, +S1, +S2 - GI/Abdominal Exam GI & Abdominal Exam: Soft, Tenderness (MID ABDOMEN ON DEEP PALPATION.). absent: Guarding, Mass - Extremities Exam Extremities Exam: Normal Capillary Refill. absent: Calf Tenderness, Pedal Edema - Neurological Exam Neurological Exam: Alert, Awake, CN II-XII Intact, Oriented x3, Reflexes Normal - Psychiatric Exam Psychiatric exam: Normal Mood - Skin Skin Exam: Normal Color, Warm Assessment and Plan (1) Sepsis Status: Acute (2) Abdominal pain Status: Acute (3) Abdominal mass Status: Acute (4) Hx of splenectomy Status: Acute (5) Diabetes Status: Acute (6) HTN (hypertension) Status: Acute - Assessment and Plan (Free Text) Plan: PLAN. CONTINUE IV ZOSYN 3.375MG IVPB Q 6 [facility]. 10/23/18 I DOSE IV AMIKACIN 1000MG IVPB STAT DOSE. CONTINUE IV VANCOMYCIN 1GM IVPB Q 12HRLY 10/23/18 CONTINUE IV FLAGYL 500MG IVPB Q 8 [facility] 10/23/18. F/U CULTURES TO ADJUST ABX. W/U FOR R/O MALIGNANCY ?PANCREATIC MASS IN PROGRESS ONCOLOGY ON BOARD
--- NOTE | 2018-10-25 22:17 | CP.PCM.PN ---
Subjective - Date & Time of Evaluation Date of Evaluation: 10/25/18 Time of Evaluation: 17:00 - Subjective Subjective: No complaints. Objective - Vital Signs/Intake and Output Vital Signs (last 24 hours): Temp Pulse Resp BP Pulse Ox 97.9 F 65 20 127/80 98 10/25/18 16:00 10/25/18 16:00 10/25/18 16:00 10/25/18 16:00 10/25/18 16:00 - Medications Medications: Current Medications Acetaminophen (Tylenol 325mg Tab) 650 mg PO Q6 PRN PRN Reason: Fever >100.4 F Last Admin: 10/24/18 05:14 Dose: 650 mg Bismuth Subsalicylate (Pepto Bismol) 262 mg PO Q4H PRN PRN Reason: Diarrhea Cyanocobalamin (Vitamin B12 1000 Mcg/Ml Inj) 1,000 mcg IM DAILY [facility] Stop: 11/02/18 10:01 Dextrose (Glutose 15) 0 gm PO ONCE PRN; Protocol PRN Reason: Hypoglycemia Protocol Last Admin: 10/24/18 08:49 Dose: 15 gm Dextrose (Dextrose 50% Inj) 50 ml IV PRN PRN; Protocol PRN Reason: Hypoglycemia Protocol Glucagon (Glucagen Diagnostic Kit) 0 mg IM STAT PRN; Protocol PRN Reason: Hypoglycemia Protocol Lactated Ringer's (Lactated Ringer's) 1,000 mls @ 150 mls/hr IV .Q6H40M [facility] Last Admin: 10/25/18 16:20 Dose: Not Given Dextrose (Dextrose 5% In Water 1000 Ml) 1,000 mls @ 0 mls/hr IV .Q0M PRN; Protocol PRN Reason: Hypoglycemia Protocol Metronidazole (Flagyl) 500 mg in 100 mls @ 100 mls/hr IVPB Q8H [facility]; Protocol Last Admin: 10/25/18 16:19 Dose: 100 mls/hr Vancomycin/Sodium Chloride (Vancomycin 1 Gm/Ns 200 Ml) 1 gm in 200 mls @ 133 mls/hr IVPB Q12H [facility]; Protocol Stop: 10/29/18 18:46 Last Admin: 10/25/18 19:21 Dose: 133 mls/hr Piperacillin Sod/Tazobactam (Sod 3.375 gm/ Sodium Chloride) 100 mls @ 200 mls/hr IVPB Q6H [facility]; Protocol Last Admin: 10/25/18 18:23 Dose: 200 mls/hr Insulin Aspart (Novolog Mix 70/30 (70/30 Units/Ml)) 8 units SC BIDCC [facility] Last Admin: 10/25/18 17:30 Dose: 8 units Insulin Human Regular (Novolin R) 0 unit SC ACHS [facility]; Protocol Last Admin: 10/25/18 21:25 Dose: Not Given Pantoprazole Sodium (Protonix Inj) 40 mg IVP Q12H [facility] Last Admin: 10/25/18 19:21 Dose: 40 mg Pneumococcal Polyvalent Vaccine (Pneumovax 23 Vaccine) 0.5 ml IM .ONCE ONE Stop: 10/26/18 10:01 - Labs Labs: 10/25/18 07:24 10/25/18 07:24 PT 13.8 SECONDS (9.7-12.2) H 10/23/18 13:15 INR 1.3 10/23/18 13:15 APTT 25 SECONDS (21-34) 10/23/18 13:15 - Head Exam Head Exam: ATRAUMATIC - Eye Exam Eye Exam: Normal appearance - ENT Exam ENT Exam: Mucous Membranes Dry - Respiratory Exam Respiratory Exam: NORMAL BREATHING PATTERN - Cardiovascular Exam Cardiovascular Exam: +S1, +S2 - GI/Abdominal Exam GI & Abdominal Exam: Normal Bowel Sounds Assessment and Plan (1) Pancytopenia Assessment & Plan: B12 deficiency; will start IM supplementation anemia of chronic disease if cytopenias persist, will need bone marrow evaluation Status: Acute (2) Abdominal mass Assessment & Plan: for MRI evaluation Status: Acute
--- NOTE | 2018-10-25 23:06 | CP.PCM.PN ---
Subjective - Date & Time of Evaluation Date of Evaluation: 10/25/18 Time of Evaluation: 11:45 - Subjective Subjective: dictated Objective - Vital Signs/Intake and Output Vital Signs (last 24 hours): Temp Pulse Resp BP Pulse Ox 97.9 F 65 20 127/80 98 10/25/18 16:00 10/25/18 16:00 10/25/18 16:00 10/25/18 16:00 10/25/18 16:00 Intake and Output: 10/25/18 10/26/18 18:59 06:59 Intake Total 900 Balance 900 - Medications Medications: Current Medications Acetaminophen (Tylenol 325mg Tab) 650 mg PO Q6 PRN PRN Reason: Fever >100.4 F Last Admin: 10/24/18 05:14 Dose: 650 mg Bismuth Subsalicylate (Pepto Bismol) 262 mg PO Q4H PRN PRN Reason: Diarrhea Cyanocobalamin (Vitamin B12 1000 Mcg/Ml Inj) 1,000 mcg IM DAILY [facility] Stop: 11/02/18 10:01 Dextrose (Glutose 15) 0 gm PO ONCE PRN; Protocol PRN Reason: Hypoglycemia Protocol Last Admin: 10/24/18 08:49 Dose: 15 gm Dextrose (Dextrose 50% Inj) 50 ml IV PRN PRN; Protocol PRN Reason: Hypoglycemia Protocol Glucagon (Glucagen Diagnostic Kit) 0 mg IM STAT PRN; Protocol PRN Reason: Hypoglycemia Protocol Lactated Ringer's (Lactated Ringer's) 1,000 mls @ 150 mls/hr IV .Q6H40M [facility] Last Admin: 10/25/18 22:18 Dose: 150 mls/hr Dextrose (Dextrose 5% In Water 1000 Ml) 1,000 mls @ 0 mls/hr IV .Q0M PRN; Protocol PRN Reason: Hypoglycemia Protocol Metronidazole (Flagyl) 500 mg in 100 mls @ 100 mls/hr IVPB Q8H [facility]; Protocol Last Admin: 10/25/18 16:19 Dose: 100 mls/hr Vancomycin/Sodium Chloride (Vancomycin 1 Gm/Ns 200 Ml) 1 gm in 200 mls @ 133 mls/hr IVPB Q12H [facility]; Protocol Stop: 10/29/18 18:46 Last Admin: 10/25/18 19:21 Dose: 133 mls/hr Piperacillin Sod/Tazobactam (Sod 3.375 gm/ Sodium Chloride) 100 mls @ 200 ml s/hr IVPB Q6H [facility]; Protocol Last Admin: 10/25/18 18:23 Dose: 200 mls/hr Insulin Aspart (Novolog Mix 70/30 (70/30 Units/Ml)) 8 units SC BIDCC [facility] Last Admin: 10/25/18 17:30 Dose: 8 units Insulin Human Regular (Novolin R) 0 unit SC ACHS [facility]; Protocol Last Admin: 10/25/18 21:25 Dose: Not Given Pantoprazole Sodium (Protonix Inj) 40 mg IVP Q12H [facility] Last Admin: 10/25/18 19:21 Dose: 40 mg Pneumococcal Polyvalent Vaccine (Pneumovax 23 Vaccine) 0.5 ml IM .ONCE ONE Stop: 10/26/18 10:01 - Labs Labs: 10/25/18 07:24 10/25/18 07:24 PT 13.8 SECONDS (9.7-12.2) H 10/23/18 13:15 INR 1.3 10/23/18 13:15 APTT 25 SECONDS (21-34) 10/23/18 13:15
[2018-10-26] MEDS: metroNIDAZOLE IV 500 mg/100 ml 500 MG/100 ML BAG IVPB SCH ×3 (00:40→16:15)
[2018-10-26] MEDS: Piperacillin/Tazobact 3.375 GM in Sodium Chloride 100 ML IVPB SCH ×3 (01:30→11:58)
[2018-10-26] MEDS: Lactated Ringer's 1,000 ML IV SCH ×3 (05:16→19:30)
[2018-10-26] MEDS: Vancomycin 1 gm/NS 200 ml 1 GM/200 ML BAG IVPB SCH ×2 (06:30→18:11)
[2018-10-26] MEDS: (Novolog Mix 70/30) Insulin Aspart/Insulin Aspar 100 units/ml SC SCH ×2 (07:47→17:27)
[2018-10-26] MEDS: (Novolin R) Insulin Human Regular 100 units/ml vial SC SCH ×4 (07:47→22:09)
[2018-10-26] MEDS ORDERED: Pneumococcal 23-Valent Vaccine IM ONE (10:00)
[2018-10-26] MEDS ORDERED: Gadodiamide 287 mg/ml 20 ml IV ONE (10:25)
[2018-10-26 11:52] LABS: BASO # 0.1 K/uL (0.0-0.2); BASO % 0.4 % (0.0-2.0); EOS # 0.1 K/uL (0.0-0.7); EOS % 0.7 % (0.0-4.0); HEMOGLOBIN 11.7 g/dL (12.0-18.0); LYMPH # 4.9 K/uL (1.0-4.3); LYMPH % 26.4 % (20.0-40.0); MEAN CORPUSCULAR HEMOGLOBIN 31.8 pg (27.0-31.0); MEAN CORPUSCULAR HGB CONC 34.2 g/dL (33.0-37.0); MEAN PLATELET VOLUME 12.9 fL (7.2-11.7); MONO # 0.6 K/uL (0.0-0.8); MONO % 3.1 % (0.0-10.0); NEUT % 69.4 % (50.0-75.0); RBC 3.69 Mil/uL (4.40-5.90); WHITE BLOOD COUNT 18.6 K/uL (4.8-10.8)
[2018-10-26 12:17] LABS: ALBUMIN 2.8 g/dL (3.5-5.0); ALT/SGPT 25 U/L (21-72); AST/SGOT 39 U/L (17-59); BLOOD UREA NITROGEN 8 mg/dL (9-20); CALCIUM 7.6 mg/dl (8.6-10.4); GFR NON-AFRICAN AMERICAN > 60
--- NOTE | 2018-10-26 12:29 | CP.PCM.PN ---
Subjective - Date & Time of Evaluation Date of Evaluation: 10/26/18 Time of Evaluation: 12:29 - Subjective Subjective: AFEBRILE NO NEW COMPLAINTS LESS DIARRHOEA DENIES ABDOMINAL PAIN NO ACUTE EVENTS OVERNIGHT. LABS. BLOOD CULTURE +VE E COLI S-CTX, CEFEPIME, ERTAPENEM. R - CIPRO BLOOD CULTURE 1:2 SETS GRAM +VE COCCI WBC 18.9 HIGH Objective - Vital Signs/Intake and Output Vital Signs (last 24 hours): Temp Pulse Resp BP Pulse Ox 98.3 F 68 20 125/78 98 10/26/18 07:20 10/26/18 07:20 10/26/18 07:20 10/26/18 07:20 10/26/18 07:20 Intake and Output: 10/26/18 10/26/18 06:59 18:59 Intake Total 2200 Balance 2200 - Medications Medications: Current Medications Acetaminophen (Tylenol 325mg Tab) 650 mg PO Q6 PRN PRN Reason: Fever >100.4 F Last Admin: 10/24/18 05:14 Dose: 650 mg Bismuth Subsalicylate (Pepto Bismol) 262 mg PO Q4H PRN PRN Reason: Diarrhea Cyanocobalamin (Vitamin B12 1000 Mcg/Ml Inj) 1,000 mcg IM DAILY [facility] Stop: 11/02/18 10:01 Last Admin: 10/26/18 11:53 Dose: 1,000 mcg Dextrose (Glutose 15) 0 gm PO ONCE PRN; Protocol PRN Reason: Hypoglycemia Protocol Last Admin: 10/24/18 08:49 Dose: 15 gm Dextrose (Dextrose 50% Inj) 50 ml IV PRN PRN; Protocol PRN Reason: Hypoglycemia Protocol Glucagon (Glucagen Diagnostic Kit) 0 mg IM STAT PRN; Protocol PRN Reason: Hypoglycemia Protocol Lactated Ringer's (Lactated Ringer's) 1,000 mls @ 150 mls/hr IV .Q6H40M [facility] Last Admin: 10/26/18 05:16 Dose: Not Given Dextrose (Dextrose 5% In Water 1000 Ml) 1,000 mls @ 0 mls/hr IV .Q0M PRN; Pro tocol PRN Reason: Hypoglycemia Protocol Metronidazole (Flagyl) 500 mg in 100 mls @ 100 mls/hr IVPB Q8H [facility]; Protocol Last Admin: 10/26/18 08:51 Dose: 100 mls/hr Vancomycin/Sodium Chloride (Vancomycin 1 Gm/Ns 200 Ml) 1 gm in 200 mls @ 133 mls/hr IVPB Q12H [facility]; Protocol Stop: 10/29/18 18:46 Last Admin: 10/26/18 06:30 Dose: 133 mls/hr Piperacillin Sod/Tazobactam (Sod 3.375 gm/ Sodium Chloride) 100 mls @ 200 mls/hr IVPB Q6H [facility]; Protocol Last Admin: 10/26/18 11:58 Dose: 200 mls/hr Insulin Aspart (Novolog Mix 70/30 (70/30 Units/Ml)) 8 units SC BIDCC [facility] Last Admin: 10/26/18 07:47 Dose: Not Given Insulin Human Regular (Novolin R) 0 unit SC ACHS [facility]; Protocol Last Admin: 10/26/18 07:47 Dose: Not Given Pantoprazole Sodium (Protonix Inj) 40 mg IVP Q12H [facility] Last Admin: 10/26/18 07:59 Dose: 40 mg - Labs Labs: 10/26/18 11:41 10/26/18 11:41 PT 13.8 SECONDS (9.7-12.2) H 10/23/18 13:15 INR 1.3 10/23/18 13:15 APTT 25 SECONDS (21-34) 10/23/18 13:15 - Constitutional Appears: No Acute Distress - Head Exam Head Exam: NORMAL INSPECTION - Eye Exam Eye Exam: EOMI, PERRL. absent: Scleral icterus - ENT Exam ENT Exam: Mucous Membranes Moist, Normal Oropharynx - Neck Exam Neck Exam: Normal Inspection - Respiratory Exam Respiratory Exam: Clear to Ausculation Bilateral, NORMAL BREATHING PATTERN - Cardiovascular Exam Cardiovascular Exam: REGULAR RHYTHM, +S1, +S2 - GI/Abdominal Exam GI & Abdominal Exam: Soft, Hypoactive Bowel Sounds - Extremities Exam Extremities Exam: Normal Capillary Refill. absent: Calf Tenderness, Pedal Edema - Neurological Exam Neurological Exam: Awake, CN II-XII Intact, Oriented x3, Reflexes Normal - Psychiatric Exam Psychiatric exam: Normal Mood - Skin Skin Exam: Normal Color, Warm Assessment and Plan (1) Sepsis Status: Acute (2) Abdominal pain Status: Acute (3) Abdominal mass Status: Acute (4) Hx of splenectomy Status: Acute (5) Diabetes Status: Acute (6) HTN (hypertension) Status: Acute - Assessment and Plan (Free Text) Plan: START IV CEFEPIME 1GM IVPB Q 8HRLY 10/26/18 DC IV ZOSYN 3.375MG IVPB Q 6 HRL[facility]. 10/23/18- 10/26/18 I DOSE IV AMIKACIN 1000MG IVPB STAT DOSE. 10/25/18 CONTINUE IV VANCOMYCIN 1GM IVPB Q 12HRLY 10/23/18 CONTINUE IV FLAGYL 500MG IVPB Q 8 HRL[facility] 10/23/18. F/U CULTURES TO ADJUST ABX. W/U FOR R/O MALIGNANCY ?PANCREATIC MASS IN PROGRESS ONCOLOGY ON BOARD
--- NOTE | 2018-10-26 14:08 | CP.PCM.CON ---
History of Present Illness - History of Present Illness History of Present Illness: GI Consult Note for Dr. Garza HPI: 52 y/o m with PMHx of DM presented to the ED and admitted on 10/23 s/p syncope per chart review. GI being consulted for diarrhea. Patient has been having diarrhea for the past 2 days, so only in the hospital. He denies previous abx exposure before the hospital and denies healthcare associated exposures (in hospital, NH, etc) leading up to being admitted. Patient states he has BM 3-4 times a day and the stool is "watery." Patient denies blood in stool. He think that perhaps the diarrhea is from the hospital food. Patient just had a BM this afternoon that was not diarrhea. [place] doctors said that he might have pancreatic cancer. However, patient unable to quantify the context. He has not had appetite loss or weight loss. Patient also found to have 3.4 cm abdominal mass in CTAP on admission. He did not know about this result. Currently denies abdominal pain. Follow up abdominal MRI ordered. It was done today. Patient today denies nausea, vomiting, abd pain, chest pain, SOB, fever, chills. ROS: as per HPI PMHx: DM SocHx: tobacco for "many years"; unable to quantify. Denies EtOH and illicit drugs. Meds: novolin (see MAR) Allergies: ASA Past Patient History - Infectious Disease Hx of Infectious Diseases: None - Past Medical History & Family History Past Medical History?: Yes - Past Social History Smoking Status: Heavy Smoker > 10 Cigarettes Daily - CARDIAC Hx Cardiac Disorders: Yes Hx Hypertension: Yes - PULMONARY Hx Respiratory Disorders: No - NEUROLOGICAL Hx Neurological Disorder: Yes Hx Syncope: Yes - HEENT Hx HEENT Problems: No - RENAL Hx Chronic Kidney Disease: No - ENDOCRINE/METABOLIC Hx Endocrine Disorders: Yes Hx Diabetes Mellitus Type 1: Yes - HEMATOLOGICAL/ONCOLOGICAL Hx Blood Disorders: No - INTEGUMENTARY Hx Dermatological Problems: No - MUSCULOSKELETAL/RHEUMATOLOGICAL Hx Musculoskeletal Disorders: No - GASTROINTESTINAL Hx Gastrointestinal Disorders: No - GENITOURINARY/GYNECOLOGICAL Hx Genitourinary Disorders: No - PSYCHIATRIC Hx Psychophysiologic Disorder: No Hx Substance Use: No - SURGICAL HISTORY Hx Surgeries: Yes Hx Splenectomy: Yes () Hx Vascular Surgery: Yes Other/Comment: as per pt,"spleen sx, lungs, and filter to R groin for DVT" - ANESTHESIA Hx Anesthesia: No Hx Anesthesia Reactions: No Hx Malignant Hyperthermia: No Has any member of the family had a problem w/ anesthesia?: No Meds Allergies/Adverse Reactions: Allergies Allergy/AdvReac Type Severity Reaction Status Date / Time aspirin Allergy Verified 10/23/18 12:58 - Medications Medications: Current Medications Acetaminophen (Tylenol 325mg Tab) 650 mg PO Q6 PRN PRN Reason: Fever >100.4 F Last Admin: 10/24/18 05:14 Dose: 650 mg Bismuth Subsalicylate (Pepto Bismol) 262 mg PO Q4H PRN PRN Reason: Diarrhea Cyanocobalamin (Vitamin B12 1000 Mcg/Ml Inj) 1,000 mcg IM DAILY [facility] Stop: 11/02/18 10:01 Last Admin: 10/26/18 11:53 Dose: 1,000 mcg Dextrose (Glutose 15) 0 gm PO ONCE PRN; Protocol PRN Reason: Hypoglycemia Protocol Last Admin: 10/24/18 08:49 Dose: 15 gm Dextrose (Dextrose 50% Inj) 50 ml IV PRN PRN; Protocol PRN Reason: Hypoglycemia Protocol Glucagon (Glucagen Diagnostic Kit) 0 mg IM STAT PRN; Protocol PRN Reason: Hypoglycemia Protocol Lactated Ringer's (Lactated Ringer's) 1,000 mls @ 150 mls/hr IV .[id number] [facility] Last Admin: 10/26/18 05:16 Dose: Not Given Dextrose (Dextrose 5% In Water 1000 Ml) 1,000 mls @ 0 mls/hr IV .Q0M PRN; Protocol PRN Reason: Hypoglycemia Protocol Metronidazole (Flagyl) 500 mg in 100 mls @ 100 mls/hr IVPB Q8H [facility]; Protocol Last Admin: 10/26/18 08:51 Dose: 100 mls/hr Vancomycin/Sodium Chloride (Vancomycin 1 Gm/Ns 200 Ml) 1 gm in 200 mls @ 133 ml s/hr IVPB Q12H [facility]; Protocol Stop: 10/29/18 18:46 Last Admin: 10/26/18 06:30 Dose: 133 mls/hr Cefepime HCl 1 gm/ Dextrose 50 mls @ 100 mls/hr IVPB Q8H [facility]; Protocol Insulin Aspart (Novolog Mix 70/30 (70/30 Units/Ml)) 8 units SC BIDCC [facility] Last Admin: 10/26/18 07:47 Dose: Not Given Insulin Human Regular (Novolin R) 0 unit SC ACHS [facility]; Protocol Last Admin: 10/26/18 12:25 Dose: 2 units Pantoprazole Sodium (Protonix Inj) 40 mg IVP Q12H [facility] Last Admin: 10/26/18 07:59 Dose: 40 mg Physical Exam - Constitutional Appears: Well - Head Exam Head Exam: ATRAUMATIC, NORMAL INSPECTION - Eye Exam Eye Exam: EOMI, Normal appearance - Neck Exam Neck exam: Positive for: Normal Inspection - GI/Abdominal Exam GI & Abdominal Exam: Normal Bowel Sounds, Soft. absent: Distended, Firm, Guarding - Neurological Exam Neurological exam: Alert, Oriented x3 - Psychiatric Exam Psychiatric exam: Normal Affect, Normal Mood - Skin Skin Exam: Dry, Intact, Normal Color, Warm Results - Vital Signs Recent Vital Signs: Last Vital Signs Temp 98.3 F 10/26/18 07:20 Pulse 68 10/26/18 07:20 Resp 20 10/26/18 07:20 BP 125/78 10/26/18 07:20 Pulse Ox 98 10/26/18 07:20 - Labs Result Diagrams: 10/26/18 11:41 10/26/18 11:41 Labs: Laboratory Results - last 24 hr 10/25/18 10/25/18 10/26/18 16:39 21:14 06:19 WBC RBC Hgb Hct MCV MCH MCHC RDW Plt Count MPV Neut % (Auto) Lymph % (Auto) [place] % (Auto) Eos % (Auto) Baso % (Auto) Neut # (Auto) Lymph # (Auto) [place] # (Auto) Eos # (Auto) Baso # (Auto) Sodium Potassium Chloride Carbon Dioxide Anion Gap BUN Creatinine Est GFR ( Amer) Est GFR (Non-Af Amer) POC Glucose (mg/dL) 204 H 103 69 Random Glucose Calcium Phosphorus Magnesium Total Bilirubin AST ALT Alkaline Phosphatase Total Protein Albumin Globulin Albumin/Globulin Ratio 10/26/18 10/26/18 10/26/18 06:20 06:46 11:20 WBC RBC Hgb Hct MCV MCH MCHC RDW Plt Count MPV Neut % (Auto) Lymph % (Auto) [place] % (Auto) Eos % (Auto) Baso % (Auto) Neut # (Auto) Lymph # (Auto) [place] # (Auto) Eos # (Auto) Baso # (Auto) Sodium Potassium Chloride Carbon Dioxide Anion Gap BUN Creatinine Est GFR ( Amer) Est GFR (Non-Af Amer) POC Glucose (mg/dL) 64 L 71 189 H Random Glucose Calcium Phosphorus Magnesium Total Bilirubin AST ALT Alkaline Phosphatase Total Protein Albumin Globulin Albumin/Globulin Ratio 10/26/18 10/26/18 11:41 11:41 WBC 18.6 H RBC 3.69 L Hgb 11.7 L Hct 34.3 L MCV 93.0 MCH 31.8 H MCHC 34.2 RDW 13.0 Plt Count 44 L MPV 12.9 H Neut % (Auto) 69.4 Lymph % (Auto) 26.4 [place] % (Auto) 3.1 Eos % (Auto) 0.7 Baso % (Auto) 0.4 Neut # (Auto) 13.0 H Lymph # (Auto) 4.9 H [place] # (Auto) 0.6 Eos # (Auto) 0.1 Baso # (Auto) 0.1 Sodium 134 Potassium 4.2 Chloride 106 Carbon Dioxide 20 L Anion Gap 12 BUN 8 L Creatinine 0.5 L Est GFR ( Amer) > 60 Est GFR (Non-Af Amer) > 60 POC Glucose (mg/dL) Random Glucose 167 H Calcium 7.6 L Phosphorus 2.0 L Magnesium 1.9 Total Bilirubin 0.6 AST 39 ALT 25 Alkaline Phosphatase 95 Total Protein 5.5 L Albumin 2.8 L Globulin 2.7 Albumin/Globulin Ratio 1.0 Assessment & Plan - Assessment and Plan (Free Text) Assessment: 52 y/o m with PMHx of DM presented to the ED and admitted on 10/23 s/p syncope per chart review. GI being consulted for diarrhea. bacteremia and s/p sepsis -10/23: e-coli in blood culture -patient still with leukocytosis 18.6, on abx --vanc 1g q12h, 10/24 to 10/29 --cefepime 1g q8h started 10/24 --flagyl 500 mg q8h 10/26-11/02 -ID Dr. Stewart consulted, appreciate recs Diarrhea -c. diff pending, also ordered stool leukocyte and stool cx -ddx: infectious, colitis, but denies bloody BM -pending FOBT Abdominal mass -pending official report of abdominal MRI -CTAP: 3.4 cm mass displacing abdominal aorta to the left -concern for malignancy. CEA 6.9H and CA 19-9 at 41.6H. pancytopenia -[facility] onc consulted, Dr. Menendez, appreciate recs
--- NOTE | 2018-10-26 14:43 | MRI ---
MRI abdomen without/with IV contrast Indication: evaluate lesion displacing abdominal aorta Technique: Multiplanar, multi sequence magnetic resonance images of the abdomen were obtained without and with the administration of intravenous gadolinium using a multi phase abdomen protocol. A total of non non she images submitted for review Comparison: CT of the chest, abdomen, and pelvis with IV contrast performed 10/23/18 Findings: Examination limited by patient motion. Cachectic patient. Splenectomy. Intrahepatic biliary ductal dilatation. Left adrenal gland hyperplasia. Right adrenal gland appears grossly unremarkable Coarse pancreatic calcifications and tiny cystic foci as well as small peripancreatic edema near the tail. Findings may reflect acute on chronic pancreatitis. Correlate clinically including amylase and lipase level. Upper abdominal varices. Gallbladder distension. The kidneys enhance symmetrically. No hydronephrosis. T2 bright T1 hypo intense nonenhancing cystic structure re-identified measuring approximately 2.5 x 4.8 x 4.5 cm displacing the abdominal aorta lack of unclear origin; necrotic sonography not excluded. No evidence of post-contrast enhancement. Limited views of the inferior thorax appear unremarkable. Impression: Examination markedly limited due to patient motion and cachexia. Encapsulated cystic collection/mass identified displacing the abdominal aorta anterior laterally towards the left as on CT. Etiology uncertain however this finding demonstrates no evidence of post-contrast enhancement. Correlate clinically for possibility of necrotic adenopathy. Sub cm retroperitoneal adenopathy evident. Coarse pancreatic calcifications and tiny cystic foci as well as small peripancreatic edema near the tail. Findings may reflect acute on chronic pancreatitis. Correlate clinically including amylase and lipase level. Splenectomy. Intrahepatic biliary ductal dilatation. Upper abdominal varices. Left adrenal gland hyperplasia seen to better advantage on CT.
[2018-10-26] MEDS ORDERED: Potassium Phosphate 15 MMOLE in Sodium Chloride 0.9% 250 ML IV ONE (16:00)
--- NOTE | 2018-10-26 22:55 | CP.PCM.PN ---
Subjective - Date & Time of Evaluation Date of Evaluation: 10/26/18 Time of Evaluation: 18:00 - Subjective Subjective: Feeling better Objective - Vital Signs/Intake and Output Vital Signs (last 24 hours): Temp Pulse Resp BP Pulse Ox 98.5 F 63 20 150/85 95 10/26/18 15:00 10/26/18 15:00 10/26/18 15:00 10/26/18 15:00 10/26/18 15:00 Intake and Output: 10/26/18 10/27/18 18:59 06:59 Intake Total 1680 Balance 1680 - Medications Medications: Current Medications Acetaminophen (Tylenol 325mg Tab) 650 mg PO Q6 PRN PRN Reason: Fever >100.4 F Last Admin: 10/24/18 05:14 Dose: 650 mg Bismuth Subsalicylate (Pepto Bismol) 262 mg PO Q4H PRN PRN Reason: Diarrhea Cyanocobalamin (Vitamin B12 1000 Mcg/Ml Inj) 1,000 mcg IM DAILY [facility] Stop: 11/02/18 10:01 Last Admin: 10/26/18 11:53 Dose: 1,000 mcg Dextrose (Glutose 15) 0 gm PO ONCE PRN; Protocol PRN Reason: Hypoglycemia Protocol Last Admin: 10/24/18 08:49 Dose: 15 gm Dextrose (Dextrose 50% Inj) 50 ml IV PRN PRN; Protocol PRN Reason: Hypoglycemia Protocol Glucagon (Glucagen Diagnostic Kit) 0 mg IM STAT PRN; Protocol PRN Reason: Hypoglycemia Protocol Metronidazole (Flagyl) 500 mg in 100 mls @ 100 mls/hr IVPB Q8H [facility]; Protocol Last Admin: 10/26/18 16:15 Dose: 100 mls/hr Vancomycin/Sodium Chloride (Vancomycin 1 Gm/Ns 200 Ml) 1 gm in 200 mls @ 133 mls/hr IVPB Q12H [facility]; Protocol Stop: 10/29/18 18:46 Last Admin: 10/26/18 18:11 Dose: 133 mls/hr Cefepime HCl 1 gm/ Dextrose 50 mls @ 100 mls/hr IVPB Q8H [facility]; Protocol Last Admin: 10/26/18 15:27 Dose: 100 mls/hr Lactated Ringer's (Lactated Ringer's) 1,000 mls @ 70 mls/hr IV .[id number] [facility] Insulin Aspart (Novolog Mix 70/30 (70/30 Units/Ml)) 5 units SC BIDCC [facility] Last Admin: 10/26/18 17:27 Dose: 5 units Insulin Human Regular (Novolin R) 0 unit SC ACHS [facility]; Protocol Last Admin: 10/26/18 22:09 Dose: Not Given Pantoprazole Sodium (Protonix Ec Tab) 20 mg PO DAILY [facility] Potassium Phos/Sodium Phos (Neutra-Phos) 1 pkt PO DAILY [facility] Stop: 10/30/18 10:01 - Labs Labs: 10/26/18 11:41 10/26/18 11:41 PT 13.8 SECONDS (9.7-12.2) H 10/23/18 13:15 INR 1.3 10/23/18 13:15 APTT 25 SECONDS (21-34) 10/23/18 13:15 - Head Exam Head Exam: ATRAUMATIC - Eye Exam Eye Exam: Normal appearance - ENT Exam ENT Exam: Mucous Membranes Dry - Respiratory Exam Respiratory Exam: NORMAL BREATHING PATTERN - Cardiovascular Exam Cardiovascular Exam: +S1, +S2 - GI/Abdominal Exam GI & Abdominal Exam: Normal Bowel Sounds Assessment and Plan (1) Abdominal mass Assessment & Plan: ? lymphadenopathy given hx of pancreatic cancer and elevated tumor marker, will need outpatient PET CT scan for further evaluation Status: Acute (2) Thrombocytopenia Assessment & Plan: suspect infection related Status: Acute (3) Anemia Assessment & Plan: anemia of chronic disease Status: Acute (4) Leukocytosis Assessment & Plan: improving on antibiotics Status: Acute
[2018-10-27] MEDS: metroNIDAZOLE IV 500 mg/100 ml 500 MG/100 ML BAG IVPB SCH ×3 (00:36→17:00)
[2018-10-27] MEDS: Vancomycin 1 gm/NS 200 ml 1 GM/200 ML BAG IVPB SCH ×2 (06:05→18:58)
[2018-10-27 07:06] LABS: BASO # 0.1 K/uL (0.0-0.2); BASO % 1.1 % (0.0-2.0); EOS # 0.2 K/uL (0.0-0.7); EOS % 1.8 % (0.0-4.0); HEMOGLOBIN 11.3 g/dL (12.0-18.0); LYMPH # 2.2 K/uL (1.0-4.3); LYMPH % 16.5 % (20.0-40.0); MEAN CELL VOLUME 92.8 fL (80.0-94.0); MEAN CORPUSCULAR HEMOGLOBIN 31.7 pg (27.0-31.0); MEAN CORPUSCULAR HGB CONC 34.2 g/dL (33.0-37.0); MEAN PLATELET VOLUME 12.9 fL (7.2-11.7); MONO # 1.1 K/uL (0.0-0.8); MONO % 8.4 % (0.0-10.0); NEUT # 9.4 K/uL (1.8-7.0); NEUT % 72.2 % (50.0-75.0); NRBC % 0.1 % (0.0-2.0); RBC 3.55 Mil/uL (4.40-5.90); RED CELL DISTRIBUTION WIDTH 13.2 % (11.5-14.5)
[2018-10-27 07:31] LABS: ALB/GLOB RATIO 0.9 (1.0-2.1); ALBUMIN 2.5 g/dL (3.5-5.0); ALT/SGPT 27 U/L (21-72); AMYLASE 38 U/L (30-110); AST/SGOT 31 U/L (17-59); BLOOD UREA NITROGEN 5 mg/dL (9-20); CALCIUM 7.6 mg/dl (8.6-10.4); GFR NON-AFRICAN AMERICAN > 60; LIPASE < 10 U/L (23-300)
[2018-10-27] MEDS: (Novolin R) Insulin Human Regular 100 units/ml vial SC SCH ×4 (08:50→21:38)
[2018-10-27] MEDS: (Novolog Mix 70/30) Insulin Aspart/Insulin Aspar 100 units/ml SC SCH ×2 (08:51→17:09)
[2018-10-27] MEDS: Pantoprazole 20 mg EC Tab PO SCH (10:12)
[2018-10-27] MEDS: Potassium & Sodium Phosphate PO SCH (10:12)
--- NOTE | 2018-10-27 10:45 | PN ---
DATE: 10/25/2018 SUBJECTIVE: The patient is afebrile. He is feeling better. His blood sugars have been stabilized. PHYSICAL EXAMINATION: VITAL SIGNS: Blood pressure 116/73, pulse 85, respiratory rate 20, temperature 98. LUNGS: Clear. CARDIOVASCULAR: S1 and S2 regular. ABDOMEN: Soft. Nontender. Bowel sounds are positive. ASSESSMENT: 1. Rule out septicemia. 2. Poorly controlled diabetes. 3. History of pancreatic carcinoma, status post resection. PLAN: Continue antibiotics as per cultures. The patient's blood cultures are positive for Escherichia coli, gram-positive culture. Continue antibiotics. I spoke to patient. The patient needs to be compliant with diet, medications and insulin to control his sugars to avoid infections. Dennis Verdin MD
--- NOTE | 2018-10-27 10:55 | PN ---
DATE: 10/27/2018 SUBJECTIVE: The patient is afebrile. His WBC is dropping. He is feeling better. PHYSICAL EXAMINATION: VITAL SIGNS: Blood pressure 135/82, pulse 73, respiratory rate 20, and temperature 98.5. LUNGS: Clear. CARDIOVASCULAR SYSTEM: S1 and S2 regular. ABDOMEN: Soft. ASSESSMENT: 1. Sepsis, gram-negative and gram-positive septicemia. 2. Type 2 diabetes, poorly controlled. PLAN: The patient had an MRI of the abdomen done to define some of the findings on the CAT scan of the abdomen and MRI has been done and the patient has encapsulated cystic collection mass identified displacing the abdominal aorta anterolaterally towards the left on the CAT scan, etiology is unclear. The patient has prior Whipple. The patient has some cystic pancreatic calcification and tiny cystic foci, so we will discuss with Hematology/Oncology. Continue antibiotics. The patient is improving. Dennis Verdin MD
[2018-10-27] MEDS: Lactated Ringer's 1,000 ML IV SCH (12:11)
--- NOTE | 2018-10-27 12:39 | CP.PCM.PN ---
Subjective - Date & Time of Evaluation Date of Evaluation: 10/27/18 Time of Evaluation: 12:39 - Subjective Subjective: afebrile. intermittent diarrhoea/ ABDOMINAL PAIN-IMPROVED +ve weight loss. LABS/RADIOLOGY wbc 13.0 IMPROVING. BLOOD CULTURE +VE E.COLI/ GRAM-POSITIVE COCCI IN CHAINS. ( identification pending ) MRI ABDOMEN W/WO COMTRAST 10/26/18 ENCAPSULATED CYSTIC COLLECTION/MASS ? NECROTIC ADENOPATHY. SUBCM.- RETROPERITONEAL ADENOPATHY. +VE SPLENECTOMY. IHB-DUCTAL DILATATION/UPPER ABDOMEN VARICES Objective - Vital Signs/Intake and Output Vital Signs (last 24 hours): Temp Pulse Resp BP Pulse Ox 98.7 F 73 20 148/90 98 10/27/18 07:20 10/27/18 07:20 10/27/18 07:20 10/27/18 07:20 10/27/18 07:20 Intake and Output: 10/27/18 10/27/18 06:59 18:59 Intake Total 1050 Balance 1050 - Medications Medications: Current Medications Acetaminophen (Tylenol 325mg Tab) 650 mg PO Q6 PRN PRN Reason: Fever >100.4 F Last Admin: 10/24/18 05:14 Dose: 650 mg Bismuth Subsalicylate (Pepto Bismol) 262 mg PO Q4H PRN PRN Reason: Diarrhea Cyanocobalamin (Vitamin B12 1000 Mcg/Ml Inj) 1,000 mcg IM DAILY [facility] Stop: 11/02/18 10:01 Last Admin: 10/27/18 10:12 Dose: 1,000 mcg Dextrose (Glutose 15) 0 gm PO ONCE PRN; Protocol PRN Reason: Hypoglycemia Protocol Last Admin: 10/24/18 08:49 Dose: 15 gm Dextrose (Dextrose 50% Inj) 50 ml IV PRN PRN; Protocol PRN Reason: Hypoglycemia Protocol Glucagon (Glucagen Diagnostic Kit) 0 mg IM STAT PRN; Protocol PRN Reason: Hypoglycemia Protocol Metronidazole (Flagyl) 500 mg in 100 mls @ 100 mls/hr IVPB Q8H [facility]; Protocol Last Admin: 10/27/18 10:11 Dose: 100 mls/hr Vancomycin/Sodium Chloride (Vancomycin 1 Gm/Ns 200 Ml) 1 gm in 200 mls @ 133 mls/hr IVPB Q12H [facility]; Protocol Stop: 10/29/18 18:46 Last Admin: 10/27/18 06:05 Dose: 133 mls/hr Cefepime HCl 1 gm/ Dextrose 50 mls @ 100 mls/hr IVPB Q8H [facility]; Protocol Last Admin: 10/27/18 04:48 Dose: 100 mls/hr Lactated Ringer's (Lactated Ringer's) 1,000 mls @ 70 mls/hr IV .[id number] [facility] Last Admin: 10/27/18 12:11 Dose: 70 mls/hr Insulin Aspart (Novolog Mix 70/30 (70/30 Units/Ml)) 5 units SC BIDCC [facility] Last Admin: 10/27/18 08:51 Dose: 5 units Insulin Human Regular (Novolin R) 0 unit SC ACHS [facility]; Protocol Last Admin: 10/27/18 12:09 Dose: 2 units Pantoprazole Sodium (Protonix Ec Tab) 20 mg PO DAILY [facility] Last Admin: 10/27/18 10:12 Dose: 20 mg Potassium Phos/Sodium Phos (Neutra-Phos) 1 pkt PO DAILY [facility] Stop: 10/30/18 10:01 Last Admin: 10/27/18 10:12 Dose: 1 pkt - Labs Labs: 10/27/18 06:55 10/27/18 06:55 PT 13.8 SECONDS (9.7-12.2) H 10/23/18 13:15 INR 1.3 10/23/18 13:15 APTT 25 SECONDS (21-34) 10/23/18 13:15 - Constitutional Appears: No Acute Distress, Cachectic - Head Exam Head Exam: NORMAL INSPECTION - Eye Exam Eye Exam: EOMI, PERRL. absent: Scleral icterus - ENT Exam ENT Exam: Normal Oropharynx - Neck Exam Neck Exam: Normal Inspection - Respiratory Exam Respiratory Exam: Clear to Ausculation Bilateral, NORMAL BREATHING PATTERN - Cardiovascular Exam Cardiovascular Exam: REGULAR RHYTHM, +S1, +S2 - GI/Abdominal Exam GI & Abdominal Exam: Soft, Tenderness (epigastric and mid abdomen improved), Hypoactive Bowel Sounds - Extremities Exam Extremities Exam: Normal Capillary Refill. absent: Calf Tenderness, Pedal Edema - Neurological Exam Neurological Exam: Alert, Awake, CN II-XII Intact, Normal Gait, Oriented x3 - Psychiatric Exam Psychiatric exam: Normal Mood - Skin Skin Exam: Normal Color, Warm Assessment and Plan (1) Sepsis Assessment & Plan: GRAM-NEGATIVE/GRAM-POSITIVE BACTEREMIA. SOURCE MOST LIKELY GI/INTRA-ABDOMINAL. CONTINUE iv CEFEPIME 1 G EVERY 8 HOURLY .10/26/18 cONTINUE iv VANCOMYCIN 1 G EVERY 12 HOURLY.10/23/18 VANCO TROUGH LEVEL 17.5-OKAY. Status: Acute (2) Abdominal pain Assessment & Plan: improving. DIARRHOEA W/U IN PROGRESS. ON ANTIBIOTICS W/U PER GI Status: Acute (3) Abdominal mass Assessment & Plan: MRI abdomen-noted Necrotic lymphadenopathy/cystic mass collection r/o infectious vs inflammatory vs occult malignancy.. ACUTE ON CHRONIC PANCREATITIS. CHECK QFT-GOLD TB- TEST STOOLS FOR AFB X3 Status: Acute (4) Hx of splenectomy Status: Acute (5) Diabetes Status: Acute (6) HTN (hypertension) Status: Acute
--- NOTE | 2018-10-27 12:55 | CARD ---
APPROVED REPORT Date of service: 10/27/2018 EXAM: Two-dimensional and M-mode echocardiogram with Doppler and color Doppler. Other Information Quality : GoodRhythm : INDICATION Syncope RISK FACTORS Hypertension Diabetes 2D DIMENSIONS IVSd1.1 (0.7-1.1cm)LVDd5.1 (3.9-5.9cm) PWd1.0 (0.7-1.1cm)LA Nhqnll69 (18-58mL) LVDs4.2 (2.5-4.0cm)FS (%) 17.5 % LVEF (%)36.3 (>50%)LVEF (Clement's)38.57 % M-Mode DIMENSIONS Left Atrium (MM)3.73 (2.5-4.0cm)IVSd1.02 (0.7-1.1cm) Aortic Root4.06 (2.2-3.7cm)LVDd5.28 (4.0-5.6cm) Aortic Cusp Exc.2.51 (1.5-2.0cm)PWd0.78 (0.7-1.1cm) FS (%) 21 %LVDs4.16 (2.0-3.8cm) LVEF (%)43 (>50%) Mitral Valve MV E Nbinomld04.6cm/sMV A Rityxsci93.1cm/sE/A ratio0.5 TDI Lateral E' Peak V5.19cm/sMedial E' Peak V4.29cm/sE/Lateral E'7.2 E/Medial E'8.8 Tricuspid Valve TR Peak [id number]/sTR Peak [id number] LEFT VENTRICLE The left ventricle is normal size. There is normal left ventricular wall thickness. The systolic function is moderately impaired. The Ejection Fraction is 35-40%. There is global hypokinesis of the left ventricle. Indeterminate No left ventricle thrombus noted on this study. There is no ventricular septal defect visualized. There is no left ventricular aneurysm. There is no mass noted in the left ventricle. RIGHT VENTRICLE The right ventricle is normal size. There is normal right ventricular wall thickness. The right ventricular systolic function is normal. ATRIA The left atrium is moderately dilated.al.by volume The right atrium size is normal. There is a small secundum type atrial septal defect. Qp/Qs is less than 1. suggest PFO AORTIC VALVE The aortic valve is normal in structure and function. No aortic regurgitation is present. There is no aortic valvular stenosis. There is no aortic valvular vegetation. MITRAL VALVE The mitral valve is normal in structure and function. There is no evidence of mitral valve prolapse. There is no mitral valve stenosis. Mitral regurgitation is mild. TRICUSPID VALVE The tricuspid valve is normal in structure and function. There is mild tricuspid regurgitation. Right ventricular systolic pressure is estimated at less than 30 mmHg. There is no tricuspid valve prolapse or vegetation. There is no tricuspid valve stenosis. PULMONIC VALVE The pulmonary valve is normal in structure and function. There is mild pulmonic valvular regurgitation. There is no pulmonic valvular stenosis. GREAT VESSELS The aortic root is normal in size. The ascending aorta is normal in size. The pulmonary artery is normal. The IVC is normal in size and collapses >50% with inspiration. PERICARDIAL EFFUSION The pericardium appears normal. There is small left pleural effusion. <Conclusion> The systolic function is moderately impaired. The Ejection Fraction is 35-40%. The left ventricular diastolic function is normal. The left atrium is moderately dilated.al.by volume There is a small secundum type atrial septal defect. Qp/Qs is less than 1. suggest PFO Mitral regurgitation is mild.
[2018-10-27] MEDS: LIPASE/PROTEASE/AMYLASE 4,200 U ECC PO SCH (17:08)
--- NOTE | 2018-10-27 21:35 | CP.PCM.PN ---
Subjective - Date & Time of Evaluation Date of Evaluation: 10/27/18 Time of Evaluation: 08:41 - Subjective Subjective: Dictated Objective - Vital Signs/Intake and Output Vital Signs (last 24 hours): Temp Pulse Resp BP Pulse Ox 97.8 F 59 L 20 143/88 97 10/27/18 15:00 10/27/18 15:00 10/27/18 15:00 10/27/18 15:00 10/27/18 15:00 - Medications Medications: Current Medications Acetaminophen (Tylenol 325mg Tab) 650 mg PO Q6 PRN PRN Reason: Fever >100.4 F Last Admin: 10/24/18 05:14 Dose: 650 mg Bismuth Subsalicylate (Pepto Bismol) 262 mg PO Q4H PRN PRN Reason: Diarrhea Cyanocobalamin (Vitamin B12 1000 Mcg/Ml Inj) 1,000 mcg IM DAILY [facility] Stop: 11/02/18 10:01 Last Admin: 10/27/18 10:12 Dose: 1,000 mcg Dextrose (Glutose 15) 0 gm PO ONCE PRN; Protocol PRN Reason: Hypoglycemia Protocol Last Admin: 10/24/18 08:49 Dose: 15 gm Dextrose (Dextrose 50% Inj) 50 ml IV PRN PRN; Protocol PRN Reason: Hypoglycemia Protocol Glucagon (Glucagen Diagnostic Kit) 0 mg IM STAT PRN; Protocol PRN Reason: Hypoglycemia Protocol Metronidazole (Flagyl) 500 mg in 100 mls @ 100 mls/hr IVPB Q8H [facility]; Protocol Last Admin: 10/27/18 17:00 Dose: 100 mls/hr Vancomycin/Sodium Chloride (Vancomycin 1 Gm/Ns 200 Ml) 1 gm in 200 mls @ 133 mls/hr IVPB Q12H [facility]; Protocol Stop: 10/29/18 18:46 Last Admin: 10/27/18 18:58 Dose: 133 mls/hr Cefepime HCl 1 gm/ Dextrose 50 mls @ 100 mls/hr IVPB Q8H [facility]; Protocol Last Admin: 10/27/18 14:54 Dose: 100 mls/hr Lactated Ringer's (Lactated Ringer's) 1,000 mls @ 70 mls/hr IV .[id number] [facility] Last Admin: 10/27/18 12:11 Dose: 70 mls/hr Insulin Aspart (Novolog Mix 70/30 (70/30 Units/Ml)) 5 units SC BIDCC [facility] Last Admin: 10/27/18 17:09 Dose: 5 units Insulin Human Regular (Novolin R) 0 unit SC ACHS [facility]; Protocol Last Admin: 10/27/18 17:09 Dose: 3 units Pantoprazole Sodium (Protonix Ec Tab) 20 mg PO DAILY [facility] Last Admin: 10/27/18 10:12 Dose: 20 mg Potassium Phos/Sodium Phos (Neutra-Phos) 1 pkt PO DAILY [facility] Stop: 10/30/18 10:01 Last Admin: 10/27/18 10:12 Dose: 1 pkt - Labs Labs: 10/27/18 06:55 10/27/18 06:55 PT 13.8 SECONDS (9.7-12.2) H 10/23/18 13:15 INR 1.3 10/23/18 13:15 APTT 25 SECONDS (21-34) 10/23/18 13:15
--- NOTE | 2018-10-27 22:46 | CP.PCM.PN ---
Subjective - Date & Time of Evaluation Date of Evaluation: 10/27/18 Time of Evaluation: 20:00 - Subjective Subjective: No complaints, feeling better Objective - Vital Signs/Intake and Output Vital Signs (last 24 hours): Temp Pulse Resp BP Pulse Ox 97.8 F 59 L 20 143/88 97 10/27/18 15:00 10/27/18 15:00 10/27/18 15:00 10/27/18 15:00 10/27/18 15:00 - Medications Medications: Current Medications Acetaminophen (Tylenol 325mg Tab) 650 mg PO Q6 PRN PRN Reason: Fever >100.4 F Last Admin: 10/24/18 05:14 Dose: 650 mg Bismuth Subsalicylate (Pepto Bismol) 262 mg PO Q4H PRN PRN Reason: Diarrhea Cyanocobalamin (Vitamin B12 1000 Mcg/Ml Inj) 1,000 mcg IM DAILY [facility] Stop: 11/02/18 10:01 Last Admin: 10/27/18 10:12 Dose: 1,000 mcg Dextrose (Glutose 15) 0 gm PO ONCE PRN; Protocol PRN Reason: Hypoglycemia Protocol Last Admin: 10/24/18 08:49 Dose: 15 gm Dextrose (Dextrose 50% Inj) 50 ml IV PRN PRN; Protocol PRN Reason: Hypoglycemia Protocol Glucagon (Glucagen Diagnostic Kit) 0 mg IM STAT PRN; Protocol PRN Reason: Hypoglycemia Protocol Cefepime HCl 1 gm/ Dextrose 50 mls @ 100 mls/hr IVPB Q8H [facility]; Protocol Last Admin: 10/27/18 21:53 Dose: 100 mls/hr Lactated Ringer's (Lactated Ringer's) 1,000 mls @ 70 mls/hr IV .[id number] [facility] Last Admin: 10/27/18 12:11 Dose: 70 mls/hr Insulin Aspart (Novolog Mix 70/30 (70/30 Units/Ml)) 5 units SC BIDCC [facility] Last Admin: 10/27/18 17:09 Dose: 5 units Insulin Human Regular (Novolin R) 0 unit SC ACHS [facility]; Protocol Last Admin: 10/27/18 21:38 Dose: Not Given Pantoprazole Sodium (Protonix Ec Tab) 20 mg PO DAILY [facility] Last Admin: 10/27/18 10:12 Dose: 20 mg Potassium Phos/Sodium Phos (Neutra-Phos) 1 pkt PO DAILY [facility] Stop: 10/30/18 10:01 Last Admin: 10/27/18 10:12 Dose: 1 pkt - Labs Labs: 10/27/18 06:55 10/27/18 06:55 PT 13.8 SECONDS (9.7-12.2) H 10/23/18 13:15 INR 1.3 10/23/18 13:15 APTT 25 SECONDS (21-34) 10/23/18 13:15 - Head Exam Head Exam: ATRAUMATIC - Eye Exam Eye Exam: Normal appearance - ENT Exam ENT Exam: Mucous Membranes Dry - Respiratory Exam Respiratory Exam: NORMAL BREATHING PATTERN - Cardiovascular Exam Cardiovascular Exam: +S1, +S2 - GI/Abdominal Exam GI & Abdominal Exam: Normal Bowel Sounds Assessment and Plan (1) Abdominal mass Assessment & Plan: ? lymphadenopathy given hx of pancreatic cancer and elevated tumor marker, will need outpatient PET CT scan for further evaluation Status: Acute (2) Thrombocytopenia Assessment & Plan: improving suspect infection related Status: Acute (3) Anemia Assessment & Plan: anemia of chronic disease Status: Acute (4) Leukocytosis Assessment & Plan: improving with antibiotics Status: Acute
[2018-10-28] MEDS: Vancomycin 1 gm/NS 200 ml 1 GM/200 ML BAG IVPB SCH ×2 (03:07→15:44)
--- NOTE | 2018-10-28 06:09 | PN ---
DATE: 10/27/2018 CHIEF COMPLAINT: The patient is feeling better. He is afebrile. He has decreased nausea, vomiting. He denies any dysuria. His blood sugars are better and he feels better. PHYSICAL EXAMINATION: VITAL SIGNS: Blood pressure is 153/88, pulse 59, respiratory rate 20, temperature 97.8. LUNGS: Clear. CARDIOVASCULAR SYSTEM: S1 and S2, regular. ABDOMEN: Soft. ASSESSMENT AND PLAN: 1. Escherichia coli, septicemia, source unclear. The patient is on antibiotic. Continue to monitor. 2. Poorly controlled diabetes. 3. Dehydration. PLAN: Detailed orders written. Continue antibiotics. Discontinue vancomycin and Flagyl. Dennis Verdin MD
[2018-10-28] MEDS: (Novolin R) Insulin Human Regular 100 units/ml vial SC SCH ×4 (08:50→21:41)
[2018-10-28] MEDS: (Novolog Mix 70/30) Insulin Aspart/Insulin Aspar 100 units/ml SC SCH ×2 (08:51→18:00)
[2018-10-28] MEDS: Lactated Ringer's 1,000 ML IV SCH (08:51)
[2018-10-28] MEDS: Potassium & Sodium Phosphate PO SCH (10:37)
[2018-10-28] MEDS: Pantoprazole 20 mg EC Tab PO SCH (10:37)
[2018-10-28] MEDS: LIPASE/PROTEASE/AMYLASE 4,200 U ECC PO SCH ×3 (10:37→18:07)
--- NOTE | 2018-10-28 11:06 | CP.PCM.PN ---
Subjective - Date & Time of Evaluation Date of Evaluation: 10/28/18 Time of Evaluation: 11:03 - Subjective Subjective: GI Progress Note for Dr. Garza Patient seen this morning. Patient had a BM a few hours prior to visiting and was able to provide stool sample in the cup. He denies abdominal pain, nausea and vomiting. Objective - Vital Signs/Intake and Output Vital Signs (last 24 hours): Temp Pulse Resp BP Pulse Ox 97.9 F 65 20 154/87 H 98 10/28/18 07:00 10/28/18 07:00 10/28/18 07:00 10/28/18 07:00 10/28/18 07:00 Intake and Output: 10/28/18 10/28/18 06:59 18:59 Intake Total 420 Balance 420 - Medications Medications: Current Medications Acetaminophen (Tylenol 325mg Tab) 650 mg PO Q6 PRN PRN Reason: Fever >100.4 F Last Admin: 10/24/18 05:14 Dose: 650 mg Bismuth Subsalicylate (Pepto Bismol) 262 mg PO Q4H PRN PRN Reason: Diarrhea Cyanocobalamin (Vitamin B12 1000 Mcg/Ml Inj) 1,000 mcg IM DAILY [facility] Stop: 11/02/18 10:01 Last Admin: 10/28/18 10:37 Dose: 1,000 mcg Dextrose (Glutose 15) 0 gm PO ONCE PRN; Protocol PRN Reason: Hypoglycemia Protocol Last Admin: 10/24/18 08:49 Dose: 15 gm Dextrose (Dextrose 50% Inj) 50 ml IV PRN PRN; Protocol PRN Reason: Hypoglycemia Protocol Glucagon (Glucagen Diagnostic Kit) 0 mg IM STAT PRN; Protocol PRN Reason: Hypoglycemia Protocol Cefepime HCl 1 gm/ Dextrose 50 mls @ 100 mls/hr IVPB Q8H [facility]; Protocol Last Admin: 10/28/18 05:18 Dose: 100 mls/hr Lactated Ringer's (Lactated Ringer's) 1,000 mls @ 70 mls/hr IV .[id number] [facility] Last Admin: 10/28/18 08:51 Dose: 70 mls/hr Vancomycin/Sodium Chloride (Vancomycin 1 Gm/Ns 200 Ml) 1 gm in 200 mls @ 133.333 mls/hr IVPB Q12H [facility]; Protocol Stop: 11/02/18 02:46 Last Admin: 10/28/18 03:07 Dose: 133.333 mls/hr Insulin Aspart (Novolog Mix 70/30 (70/30 Units/Ml)) 5 units SC BIDCC [facility] Last Admin: 10/28/18 08:51 Dose: 5 units Insulin Human Regular (Novolin R) 0 unit SC ACHS [facility]; Protocol Last Admin: 10/28/18 08:50 Dose: 3 units Pantoprazole Sodium (Protonix Ec Tab) 20 mg PO DAILY [facility] Last Admin: 10/28/18 10:37 Dose: 20 mg Potassium Phos/Sodium Phos (Neutra-Phos) 1 pkt PO DAILY [facility] Stop: 10/30/18 10:01 Last Admin: 10/28/18 10:37 Dose: 1 pkt - Labs Labs: 10/27/18 06:55 10/27/18 06:55 PT 13.8 SECONDS (9.7-12.2) H 10/23/18 13:15 INR 1.3 10/23/18 13:15 APTT 25 SECONDS (21-34) 10/23/18 13:15 - Constitutional Appears: Well, Non-toxic - Head Exam Head Exam: ATRAUMATIC, NORMAL INSPECTION - Neck Exam Neck Exam: Normal Inspection - Respiratory Exam Respiratory Exam: Clear to Ausculation Bilateral, NORMAL BREATHING PATTERN - Cardiovascular Exam Cardiovascular Exam: REGULAR RHYTHM - GI/Abdominal Exam GI & Abdominal Exam: Soft, Normal Bowel Sounds. absent: Tenderness - Neurological Exam Neurological Exam: Alert, Awake, Oriented x3 - Psychiatric Exam Psychiatric exam: Normal Affect, Normal Mood - Skin Skin Exam: Dry, Intact, Normal Color, Warm Assessment and Plan - Assessment and Plan (Free Text) Assessment: 52 y/o m with PMHx of DM presented to the ED and admitted on 10/23 s/p syncope per chart review. GI being consulted for diarrhea. bacteremia and s/p sepsis -10/23: e-coli in blood culture. Second sample with strep viridans --vanc 1g q12h, 10/24 to 10/29 --cefepime 1g q8h started 10/24 --flagyl d/osmar by primary physician -ID Dr. Stewart consulted, appreciate recs Diarrhea -stool culture negative -c. diff pending, also ordered stool leukocyte -ddx: infectious, colitis, but denies bloody BM -pending FOBT -ID Dr. Stewart consulted, appreciate recs Abdominal mass -abdominal MRI 10/26: correlate abdominal mass w/ possible necrotic adenopathy. Possible acute on chronic pancreatitis. -CTAP: 3.4 cm mass displacing abdominal aorta to the left -CEA 6.9H and CA 19-9 at 41.6H. Will need to trend, recommend every 2-3 years. pancytopenia -Heme onc consulted, Dr. Menendez, appreciate recs Thank you for the consult. We will follow PRN. case discussed with Dr. Greg Key PGY1
--- NOTE | 2018-10-28 20:52 | CP.PCM.PN ---
Subjective - Date & Time of Evaluation Date of Evaluation: 10/28/18 Time of Evaluation: 20:52 - Subjective Subjective: AFEBRILE, VSS. DENIES COUGH/OR SOB. DENIES PREVIOUS HX OF TB /OR EXPOSURE TO TB STATES HE GAVE SAMPLE OF STOOL THIS AM. DENIES ABDOMINAL PAIN. W/U FOR TB IN PROGRESS ?NECROTIC LYMPHADENOPATHY INFECTIOUS VS MALIGNANT. PT HAS HX OF SPLENECTOMY/HX ALCOHOLISM IN PAST LABS ; BLOOD CULTURE 1 SET +VE GP -COCCI BLOOD CULTURE 1 SET +VE E.COLI Objective - Vital Signs/Intake and Output Vital Signs (last 24 hours): Temp Pulse Resp BP Pulse Ox 97.8 F 87 18 150/88 100 10/28/18 15:55 10/28/18 18:00 10/28/18 15:55 10/28/18 18:00 10/28/18 15:55 - Medications Medications: Current Medications Acetaminophen (Tylenol 325mg Tab) 650 mg PO Q6 PRN PRN Reason: Fever >100.4 F Last Admin: 10/24/18 05:14 Dose: 650 mg Bismuth Subsalicylate (Pepto Bismol) 262 mg PO Q4H PRN PRN Reason: Diarrhea Cyanocobalamin (Vitamin B12 1000 Mcg/Ml Inj) 1,000 mcg IM DAILY [facility] Stop: 11/02/18 10:01 Last Admin: 10/28/18 10:37 Dose: 1,000 mcg Dextrose (Glutose 15) 0 gm PO ONCE PRN; Protocol PRN Reason: Hypoglycemia Protocol Last Admin: 10/24/18 08:49 Dose: 15 gm Dextrose (Dextrose 50% Inj) 50 ml IV PRN PRN; Protocol PRN Reason: Hypoglycemia Protocol Glucagon (Glucagen Diagnostic Kit) 0 mg IM STAT PRN; Protocol PRN Reason: Hypoglycemia Protocol Cefepime HCl 1 gm/ Dextrose 50 mls @ 100 mls/hr IVPB Q8H [facility]; Protocol Last Admin: 10/28/18 12:12 Dose: 100 mls/hr Lactated Ringer's (Lactated Ringer's) 1,000 mls @ 70 mls/hr IV .[id number] [facility] Last Admin: 10/28/18 08:51 Dose: 70 mls/hr Vancomycin/Sodium Chloride (Vancomycin 1 Gm/Ns 200 Ml) 1 gm in 200 mls @ 133.333 mls/hr IVPB Q12H [facility]; Protocol Stop: 11/02/18 02:46 Last Admin: 10/28/18 15:44 Dose: 133.333 mls/hr Insulin Aspart (Novolog Mix 70/30 (70/30 Units/Ml)) 5 units SC BIDCC [facility] Last Admin: 10/28/18 18:00 Dose: 5 units Insulin Human Regular (Novolin R) 0 unit SC ACHS [facility]; Protocol Last Admin: 10/28/18 17:30 Dose: 3 units Pantoprazole Sodium (Protonix Ec Tab) 20 mg PO DAILY [facility] Last Admin: 10/28/18 10:37 Dose: 20 mg Potassium Phos/Sodium Phos (Neutra-Phos) 1 pkt PO DAILY [facility] Stop: 10/30/18 10:01 Last Admin: 10/28/18 10:37 Dose: 1 pkt - Labs Labs: 10/27/18 06:55 10/27/18 06:55 PT 13.8 SECONDS (9.7-12.2) H 10/23/18 13:15 INR 1.3 10/23/18 13:15 APTT 25 SECONDS (21-34) 10/23/18 13:15 - Constitutional Appears: No Acute Distress - Head Exam Head Exam: NORMAL INSPECTION - Eye Exam Eye Exam: EOMI - ENT Exam ENT Exam: Mucous Membranes Moist, Normal Oropharynx (POOR ORAL HYGIENE.) - Neck Exam Neck Exam: Normal Inspection - Respiratory Exam Respiratory Exam: Clear to Ausculation Bilateral, NORMAL BREATHING PATTERN - Cardiovascular Exam Cardiovascular Exam: REGULAR RHYTHM, +S1, +S2 - GI/Abdominal Exam GI & Abdominal Exam: Soft, Normal Bowel Sounds. absent: Tenderness, Mass - Extremities Exam Extremities Exam: Normal Capillary Refill. absent: Calf Tenderness, Pedal Edema - Neurological Exam Neurological Exam: Alert, Awake, CN II-XII Intact, Normal Gait, Oriented x3, Reflexes Normal - Psychiatric Exam Psychiatric exam: Normal Mood - Skin Skin Exam: Normal Color, Warm Assessment and Plan (1) Gram positive sepsis Status: Acute (2) Gram negative sepsis Status: Acute (3) Sepsis Status: Acute (4) Abdominal pain Status: Acute (5) Abdominal mass Status: Acute (6) Hx of splenectomy Status: Acute (7) Diabetes Status: Acute (8) HTN (hypertension) Status: Acute - Assessment and Plan (Free Text) Plan: GRAM-NEGATIVE/GRAM-POSITIVE BACTEREMIA. SOURCE MOST LIKELY GI/INTRA-ABDOMINAL. CONTINUE iv CEFEPIME 1 G EVERY 8 HOURLY .10/26/18 cONTINUE iv VANCOMYCIN 1 G EVERY 12 HOURLY.10/23/18 VANCO TROUGH LEVEL 17.5-OKAY. F/U CULTURES TO ADJUST ABX. TB W/U IN PROGRESS. PT ON [place]/CONTACT PRECAUTIONS. CASE DISCUSSED WITH STAFF.
--- NOTE | 2018-10-28 21:29 | CP.PCM.PN ---
Subjective - Date & Time of Evaluation Date of Evaluation: 10/28/18 Time of Evaluation: 18:00 - Subjective Subjective: dictated Objective - Vital Signs/Intake and Output Vital Signs (last 24 hours): Temp Pulse Resp BP Pulse Ox 97.8 F 87 18 150/88 100 10/28/18 15:55 10/28/18 18:00 10/28/18 15:55 10/28/18 18:00 10/28/18 15:55 - Medications Medications: Current Medications Acetaminophen (Tylenol 325mg Tab) 650 mg PO Q6 PRN PRN Reason: Fever >100.4 F Last Admin: 10/24/18 05:14 Dose: 650 mg Bismuth Subsalicylate (Pepto Bismol) 262 mg PO Q4H PRN PRN Reason: Diarrhea Cyanocobalamin (Vitamin B12 1000 Mcg/Ml Inj) 1,000 mcg IM DAILY [facility] Stop: 11/02/18 10:01 Last Admin: 10/28/18 10:37 Dose: 1,000 mcg Dextrose (Glutose 15) 0 gm PO ONCE PRN; Protocol PRN Reason: Hypoglycemia Protocol Last Admin: 10/24/18 08:49 Dose: 15 gm Dextrose (Dextrose 50% Inj) 50 ml IV PRN PRN; Protocol PRN Reason: Hypoglycemia Protocol Glucagon (Glucagen Diagnostic Kit) 0 mg IM STAT PRN; Protocol PRN Reason: Hypoglycemia Protocol Cefepime HCl 1 gm/ Dextrose 50 mls @ 100 mls/hr IVPB Q8H [facility]; Protocol Last Admin: 10/28/18 12:12 Dose: 100 mls/hr Lactated Ringer's (Lactated Ringer's) 1,000 mls @ 70 mls/hr IV .[id number] [facility] Last Admin: 10/28/18 08:51 Dose: 70 mls/hr Vancomycin/Sodium Chloride (Vancomycin 1 Gm/Ns 200 Ml) 1 gm in 200 mls @ 133.333 mls/hr IVPB Q12H [facility]; Protocol Stop: 11/02/18 02:46 Last Admin: 10/28/18 15:44 Dose: 133.333 mls/hr Insulin Aspart (Novolog Mix 70/30 (70/30 Units/Ml)) 5 units SC BIDCC [facility] Last Admin: 10/28/18 18:00 Dose: 5 units Insulin Human Regular (Novolin R) 0 unit SC ACHS [facility]; Protocol Last Admin: 10/28/18 17:30 Dose: 3 units Pantoprazole Sodium (Protonix Ec Tab) 20 mg PO DAILY [facility] Last Admin: 10/28/18 10:37 Dose: 20 mg Potassium Phos/Sodium Phos (Neutra-Phos) 1 pkt PO DAILY [facility] Stop: 10/30/18 10:01 Last Admin: 10/28/18 10:37 Dose: 1 pkt - Labs Labs: 10/27/18 06:55 10/27/18 06:55 PT 13.8 SECONDS (9.7-12.2) H 10/23/18 13:15 INR 1.3 10/23/18 13:15 APTT 25 SECONDS (21-34) 10/23/18 13:15
--- NOTE | 2018-10-28 22:14 | CP.PCM.CON ---
History of Present Illness - History of Present Illness History of Present Illness: CC: ?Syncope HPI: 52 y/o m with PMHx of DM presented to the ED and admitted on 10/23 s/p syncope per chart review. Patient has been having diarrhea for the past 2 days, so only in the hospital. He denies previous abx exposure before the hospital and denies healthcare associated exposures (in hospital, NH, etc) leading up to being admitted. Patient states he has BM 3-4 times a day and the stool is "watery." Patient denies blood in stool. He think that perhaps the diarrhea is from the hospital food. Patient just had a BM this afternoon that was not diarrhea. Patient also found to have 3.4 cm abdominal mass in CTAP on admission. He did not know about this result. Currently denies abdominal pain. Follow up abdominal MRI ordered. It was done today. Patient today denies nausea, vomiting, abd pain, chest pain, SOB, fever, chills. ROS: as per HPI PMHx: DM SocHx: tobacco for "many years"; unable to quantify. Denies EtOH and illicit drugs. Meds: novolin (see MAR) Allergies: ASA Physical Exam - Constitutional Appears: Well - Head Exam Head Exam: ATRAUMATIC, NORMAL INSPECTION - Eye Exam Eye Exam: EOMI, Normal appearance - Neck Exam Neck exam: Positive for: Normal Inspection - GI/Abdominal Exam GI & Abdominal Exam: Normal Bowel Sounds, Soft. absent: Distended, Firm, Guarding - Neurological Exam Neurological exam: Alert, Oriented x3 - Psychiatric Exam Psychiatric exam: Normal Affect, Normal Mood - Skin Skin Exam: Dry, Intact, Normal Color, Warm Assessment & Plan - Assessment and Plan (Free Text) Assessment: 52 y/o m with PMHx of DM presented to the ED and admitted on 10/23 s/p syncope per chart review. GI being consulted for diarrhea. bacteremia and s/p sepsis -10/23: e-coli in blood culture -patient still with leukocytosis 18.6, on abx --vanc 1g q12h, 10/24 to 10/29 --cefepime 1g q8h started 10/24 --flagyl 500 mg q8h 10/26-11/02 -ID Dr. Stewart consulted, appreciate recs Diarrhea -c. diff pending, also ordered stool leukocyte and stool cx -ddx: infectious, colitis, but denies bloody BM -pending FOBT Abdominal mass -pending official report of abdominal MRI -CTAP: 3.4 cm mass displacing abdominal aorta to the left -concern for malignancy. CEA 6.9H and CA 19-9 at 41.6H. pancytopenia -Heme onc consulted, Dr. Menendez, appreciate recs Near Normal EF PFO with left to right shunt Recommend medical mgt with ASA 81 daily Past Patient History - Infectious Disease Hx of Infectious Diseases: None - Past Medical History & Family History Past Medical History?: Yes - Past Social History Smoking Status: Heavy Smoker > 10 Cigarettes Daily - CARDIAC Hx Cardiac Disorders: Yes Hx Hypertension: Yes - PULMONARY Hx Respiratory Disorders: No - NEUROLOGICAL Hx Neurological Disorder: Yes Hx Syncope: Yes - HEENT Hx HEENT Problems: No - RENAL Hx Chronic Kidney Disease: No - ENDOCRINE/METABOLIC Hx Endocrine Disorders: Yes Hx Diabetes Mellitus Type 1: Yes - HEMATOLOGICAL/ONCOLOGICAL Hx Blood Disorders: No - INTEGUMENTARY Hx Dermatological Problems: No - MUSCULOSKELETAL/RHEUMATOLOGICAL Hx Musculoskeletal Disorders: No - GASTROINTESTINAL Hx Gastrointestinal Disorders: No - GENITOURINARY/GYNECOLOGICAL Hx Genitourinary Disorders: No - PSYCHIATRIC Hx Psychophysiologic Disorder: No Hx Substance Use: No - SURGICAL HISTORY Hx Surgeries: Yes Hx Splenectomy: Yes () Hx Vascular Surgery: Yes Other/Comment: as per pt,"spleen sx, lungs, and filter to R groin for DVT" - ANESTHESIA Hx Anesthesia: No Hx Anesthesia Reactions: No Hx Malignant Hyperthermia: No Has any member of the family had a problem w/ anesthesia?: No Meds Allergies/Adverse Reactions: Allergies Allergy/AdvReac Type Severity Reaction Status Date / Time aspirin Allergy Verified 10/23/18 12:58 - Medications Medications: Current Medications Acetaminophen (Tylenol 325mg Tab) 650 mg PO Q6 PRN PRN Reason: Fever >100.4 F Last Admin: 10/24/18 05:14 Dose: 650 mg Bismuth Subsalicylate (Pepto Bismol) 262 mg PO Q4H PRN PRN Reason: Diarrhea Cyanocobalamin (Vitamin B12 1000 Mcg/Ml Inj) 1,000 mcg IM DAILY [facility] Stop: 11/02/18 10:01 Last Admin: 10/28/18 10:37 Dose: 1,000 mcg Dextrose (Glutose 15) 0 gm PO ONCE PRN; Protocol PRN Reason: Hypoglycemia Protocol Last Admin: 10/24/18 08:49 Dose: 15 gm Dextrose (Dextrose 50% Inj) 50 ml IV PRN PRN; Protocol PRN Reason: Hypoglycemia Protocol Glucagon (Glucagen Diagnostic Kit) 0 mg IM STAT PRN; Protocol PRN Reason: Hypoglycemia Protocol Cefepime HCl 1 gm/ Dextrose 50 mls @ 100 mls/hr IVPB Q8H [facility]; Protocol Last Admin: 10/28/18 21:31 Dose: 100 mls/hr Lactated Ringer's (Lactated Ringer's) 1,000 mls @ 70 mls/hr IV .[id number] [facility] Last Admin: 10/28/18 08:51 Dose: 70 mls/hr Vancomycin/Sodium Chloride (Vancomycin 1 Gm/Ns 200 Ml) 1 gm in 200 mls @ 133.333 mls/hr IVPB Q12H [facility]; Protocol Stop: 11/02/18 02:46 Last Admin: 10/28/18 15:44 Dose: 133.333 mls/hr Insulin Aspart (Novolog Mix 70/30 (70/30 Units/Ml)) 5 units SC BIDCC [facility] Last Admin: 10/28/18 18:00 Dose: 5 units Insulin Human Regular (Novolin R) 0 unit SC ACHS [facility]; Protocol Last Admin: 10/28/18 21:41 Dose: 3 units Pantoprazole Sodium (Protonix Ec Tab) 20 mg PO DAILY [facility] Last Admin: 10/28/18 10:37 Dose: 20 mg Potassium Phos/Sodium Phos (Neutra-Phos) 1 pkt PO DAILY [facility] Stop: 10/30/18 10:01 Last Admin: 10/28/18 10:37 Dose: 1 pkt Results - Vital Signs Recent Vital Signs: Last Vital Signs Temp 97.8 F 10/28/18 15:55 Pulse 87 10/28/18 18:00 Resp 18 10/28/18 15:55 BP 150/88 10/28/18 18:00 Pulse Ox 100 10/28/18 15:55 - Labs Result Diagrams: 10/27/18 06:55 10/27/18 06:55 Labs: Laboratory Results - last 24 hr 10/28/18 10/28/18 10/28/18 06:33 11:50 16:22 POC Glucose (mg/dL) 227 H 261 H 230 H
[2018-10-29] MEDS: Vancomycin 1 gm/NS 200 ml 1 GM/200 ML BAG IVPB SCH ×2 (02:10→14:14)
--- NOTE | 2018-10-29 02:24 | PN ---
DATE: 10/28/2018 SUBJECTIVE: The patient is comfortable. He is afebrile. His WBC is going down. No fever. No chills. No nausea or vomiting. He is found to have patent foramen ovale. He is afebrile, on antibiotics. E. coli in the blood is sensitive to few antibiotics. PHYSICAL EXAMINATION: VITAL SIGNS: Blood pressure 150/88, pulse 57, respiratory rate is 18, temperature 97.8. LUNGS: Clear. No rales. No rhonchi. CARDIOVASCULAR SYSTEM: S1 and S2, regular. ABDOMEN: Soft, nontender. Bowel sounds are positive. ASSESSMENT: 1. Patent foramen ovale. 2. Septicemia with gram-negative Escherichia coli. 3. Hypertension. 4. Diabetes. PLAN: Antibiotics, isolation. Seen by Hematology/Oncology. Dennis Verdin MD
[2018-10-29] MEDS: Lactated Ringer's 1,000 ML IV SCH (04:56)
[2018-10-29] MEDS: (Novolog Mix 70/30) Insulin Aspart/Insulin Aspar 100 units/ml SC SCH ×2 (08:42→17:41)
[2018-10-29] MEDS: (Novolin R) Insulin Human Regular 100 units/ml vial SC SCH ×4 (08:43→22:08)
[2018-10-29] MEDS: LIPASE/PROTEASE/AMYLASE 4,200 U ECC PO SCH ×3 (08:55→17:41)
[2018-10-29] MEDS: Pantoprazole 20 mg EC Tab PO SCH (11:49)
[2018-10-29] MEDS: Potassium & Sodium Phosphate PO SCH (11:49)
--- NOTE | 2018-10-29 13:33 | PN ---
DATE: 10/29/2018 LOCATION: 667, bed B. SUBJECTIVE: This 52-year-old male seen initially for GI consultation in rounds today without reported significant clinical changes with reported GI bleeding, but not with dyspepsia. The entire chart was reviewed including but not limited to the most recent lab results and today blood glucose level reported to be 344. The patient had abdominal MRI recently. Report is seen with evidence of possible chronic pancreatitis as well as and reported intrahepatic biliary ductal dilation with upper abdominal varices. The patient denies any evidence of active bleeding at the time of the physical examination. Most recent CBC showed leukocytosis with hemoglobin of 11.3, hematocrit 33 with low albumin and low total protein as well as low BUN and creatinine. PHYSICAL EXAMINATION: GENERAL: A 52-year-old male. VITAL SIGNS: Afebrile with pulse of 66, respiratory rate 20 to 22 with blood pressure of 142/90. HEENT: Showed pale dry oral mucous membrane. Nonicteric sclerae. LUNGS: Few scattered crepitation. Decreased air entry at bases. HEART: Positive S1 and S2. ABDOMEN: Soft with mild generalized tenderness. No mass or organomegaly. No rebound tenderness or guarding. EXTREMITIES: No significant clubbing, cyanosis, or edema. IMPRESSION: 1. Anemia. 2. Presyncopal episode recently. 3. Reexacerbation of peptic ulcer disease with change of bowel movement habit. 4. Abnormal MRI. 5. Known history of hypertension, poorly controlled diabetes mellitus. 6. Reexacerbation of peptic ulcer disease with most likely diabetic gastroparesis. SUGGESTION: 1. Continue current management. 2. Due to the elevated CEA, colonoscopy is to be kept in mind. 3. Blood transfusion to keep hemoglobin above 10 g%. 4. Further recommendation to follow. May need ARCP if his liver enzymes elevated or increased total bilirubin. Further recommendation to follow and colonoscopy to be scheduled. Paramjit Ramos MD
--- NOTE | 2018-10-29 23:47 | CP.PCM.PN ---
Subjective - Date & Time of Evaluation Date of Evaluation: 10/29/18 Time of Evaluation: 23:47 - Subjective Subjective: AFEBRILE, NO ACUTE EVENTS OVER NIGHT. SEEN BY CARDIOLOGY TODAY. BLOOD CULTURE TODAY REPORTED 1 SET +VE STREP VIRIDANS. 1 SET +VE E . COLI Objective - Vital Signs/Intake and Output Vital Signs (last 24 hours): Temp Pulse Resp BP Pulse Ox 98.1 F 58 L 20 170/84 H 99 10/29/18 15:00 10/29/18 15:00 10/29/18 15:00 10/29/18 15:00 10/29/18 15:00 Intake and Output: 10/29/18 10/30/18 18:59 06:59 Intake Total 770 500 Output Total 1050 Balance -280 500 - Medications Medications: Current Medications Acetaminophen (Tylenol 325mg Tab) 650 mg PO Q6 PRN PRN Reason: Fever >100.4 F Last Admin: 10/24/18 05:14 Dose: 650 mg Bismuth Subsalicylate (Pepto Bismol) 262 mg PO Q4H PRN PRN Reason: Diarrhea Cyanocobalamin (Vitamin B12 1000 Mcg/Ml Inj) 1,000 mcg IM DAILY [facility] Stop: 11/02/18 10:01 Last Admin: 10/29/18 11:49 Dose: 1,000 mcg Dextrose (Glutose 15) 0 gm PO ONCE PRN; Protocol PRN Reason: Hypoglycemia Protocol Last Admin: 10/24/18 08:49 Dose: 15 gm Dextrose (Dextrose 50% Inj) 50 ml IV PRN PRN; Protocol PRN Reason: Hypoglycemia Protocol Glucagon (Glucagen Diagnostic Kit) 0 mg IM STAT PRN; Protocol PRN Reason: Hypoglycemia Protocol Cefepime HCl 1 gm/ Dextrose 50 mls @ 100 mls/hr IVPB Q8H [facility]; Protocol Last Admin: 10/29/18 20:26 Dose: 100 mls/hr Vancomycin/Sodium Chloride (Vancomycin 1 Gm/Ns 200 Ml) 1 gm in 200 mls @ 133.333 mls/hr IVPB Q12H [facility]; Protocol Stop: 11/02/18 02:46 Last Admin: 10/29/18 14:14 Dose: 133.333 mls/hr Insulin Aspart (Novolog Mix 70/30 (70/30 Units/Ml)) 5 units SC BIDCC [facility] Last Admin: 10/29/18 17:41 Dose: 5 units Insulin Human Regular (Novolin R) 0 unit SC ACHS [facility]; Protocol Last Admin: 10/29/18 22:08 Dose: 2 units Pantoprazole Sodium (Protonix Ec Tab) 20 mg PO DAILY [facility] Last Admin: 10/29/18 11:49 Dose: 20 mg Potassium Phos/Sodium Phos (Neutra-Phos) 1 pkt PO DAILY [facility] Stop: 10/30/18 10:01 Last Admin: 10/29/18 11:49 Dose: 1 pkt - Labs Labs: 10/27/18 06:55 10/27/18 06:55 PT 13.8 SECONDS (9.7-12.2) H 10/23/18 13:15 INR 1.3 10/23/18 13:15 APTT 25 SECONDS (21-34) 10/23/18 13:15 - Constitutional Appears: No Acute Distress - Head Exam Head Exam: NORMAL INSPECTION - Eye Exam Eye Exam: EOMI, PERRL - ENT Exam ENT Exam: Normal Oropharynx (POOR ORAL HYGIENE.) - Neck Exam Neck Exam: Normal Inspection - Respiratory Exam Respiratory Exam: Clear to Ausculation Bilateral, NORMAL BREATHING PATTERN - Cardiovascular Exam Cardiovascular Exam: REGULAR RHYTHM, +S1, +S2 - GI/Abdominal Exam GI & Abdominal Exam: Soft, Normal Bowel Sounds. absent: Tenderness, Mass - Extremities Exam Extremities Exam: Normal Capillary Refill. absent: Calf Tenderness, Pedal Edema - Neurological Exam Neurological Exam: Alert, Awake, CN II-XII Intact, Normal Gait, Oriented x3, Reflexes Normal - Psychiatric Exam Psychiatric exam: Normal Mood - Skin Skin Exam: Normal Color, Warm Assessment and Plan (1) Gram negative sepsis Status: Acute (2) Gram positive sepsis Status: Acute (3) Sepsis Status: Acute (4) Abdominal pain Status: Acute (5) Abdominal mass Status: Acute (6) Hx of splenectomy Status: Acute (7) Diabetes Status: Acute (8) HTN (hypertension) Status: Acute - Assessment and Plan (Free Text) Plan: ADDENDUM: BLOOD CULTURE TODAY FINAL IDENTIFICATION REPORTED 10/29/18 1 SET +VE STREP VIRIDANS.-S- CEFOTRIAXONE,PCN, VANCOMYCIN 1 SET +VE E . COLI S- CEFEPIME PLAN; CHECK 2D ECHO R/O VEGETATIONS. CONTINUE iv CEFEPIME 1 G EVERY 8 HOURLY .10/26/18 cONTINUE iv VANCOMYCIN 1 G EVERY 12 HOURLY.10/23/18 VANCO TROUGH LEVEL 17.5-OKAY. QFT-GOLD TB TEST IN PROGRESS. TB W/U IN PROGRESS. PT ON [place]/CONTACT PRECAUTIONS. GI ON CASE ? IS THIS MASS PANCREATICIN ORIGIN ?CA VS PSEUDOCYST vs intra-abdominal abscess. CASE DISCUSSED WITH STAFF.
[2018-10-30] MEDS: Vancomycin 1 gm/NS 200 ml 1 GM/200 ML BAG IVPB SCH ×2 (03:18→14:06)
[2018-10-30 05:34] LABS: % CD4 (T HELPER CELL) 57 Percent (30-61); % CD8 (SUPPRESSOR T CELL) 15 Percent (12-42); ABSOLUTE CD4 CELLS 846 Cells/mcL (490-1740); ABSOLUTE CD8 CELLS 229 Cells/mcL (180-1170); ABSOLUTE LYMPHOCYTES 1493 Cells/mcL (850-3900); HELPER/SUPPRESSOR RATIO 3.69 Ratio (0.86-5.00)
[2018-10-30] MEDS: (Novolin R) Insulin Human Regular 100 units/ml vial SC SCH ×4 (08:21→21:40)
[2018-10-30] MEDS: (Novolog Mix 70/30) Insulin Aspart/Insulin Aspar 100 units/ml SC SCH ×2 (08:22→17:47)
[2018-10-30] MEDS: LIPASE/PROTEASE/AMYLASE 4,200 U ECC PO SCH ×3 (08:23→17:46)
[2018-10-30] MEDS: Potassium & Sodium Phosphate PO SCH (09:41)
[2018-10-30] MEDS: Pantoprazole 20 mg EC Tab PO SCH (09:41)
--- NOTE | 2018-10-30 15:30 | CP.PCM.PN ---
Subjective - Date & Time of Evaluation Date of Evaluation: 10/30/18 Time of Evaluation: 15:29 - Subjective Subjective: Patient seen and evaluated Denies chest pain and dyspnea Physical Exam - Constitutional Appears: Well - Head Exam Head Exam: ATRAUMATIC, NORMAL INSPECTION - Eye Exam Eye Exam: EOMI, Normal appearance - Neck Exam Neck exam: Positive for: Normal Inspection - GI/Abdominal Exam GI & Abdominal Exam: Normal Bowel Sounds, Soft. absent: Distended, Firm, Guarding - Neurological Exam Neurological exam: Alert, Oriented x3 - Psychiatric Exam Psychiatric exam: Normal Affect, Normal Mood - Skin Skin Exam: Dry, Intact, Normal Color, Warm Assessment & Plan - Assessment and Plan (Free Text) Assessment: 52 y/o m with PMHx of DM presented to the ED and admitted on 10/23 s/p syncope per chart review. GI being consulted for diarrhea. bacteremia and s/p sepsis -10/23: e-coli in blood culture -patient still with leukocytosis 18.6, on abx --vanc 1g q12h, 10/24 to 10/29 --cefepime 1g q8h started 10/24 --flagyl 500 mg q8h 10/26-11/02 -ID Dr. Stewart consulted, appreciate recs Diarrhea -c. diff pending, also ordered stool leukocyte and stool cx -ddx: infectious, colitis, but denies bloody BM -pending FOBT Abdominal mass -pending official report of abdominal MRI -CTAP: 3.4 cm mass displacing abdominal aorta to the left -concern for malignancy. CEA 6.9H and CA 19-9 at 41.6H. pancytopenia -Heme onc consulted, Dr. Menendez, appreciate recs Near Normal EF PFO with left to right shunt Recommend medical mgt with ASA 81 daily Objective - Vital Signs/Intake and Output Vital Signs (last 24 hours): Temp Pulse Resp BP Pulse Ox 97.9 F 110 H 20 121/68 100 10/30/18 08:48 10/30/18 08:48 10/30/18 08:48 10/30/18 08:48 10/30/18 08:48 Intake and Output: 10/30/18 10/30/18 06:59 18:59 Intake Total 920 600 Output Total 950 Balance -30 600 - Medications Medications: Current Medications Acetaminophen (Tylenol 325mg Tab) 650 mg PO Q6 PRN PRN Reason: Fever >100.4 F Last Admin: 10/24/18 05:14 Dose: 650 mg Bismuth Subsalicylate (Pepto Bismol) 262 mg PO Q4H PRN PRN Reason: Diarrhea Cyanocobalamin (Vitamin B12 1000 Mcg/Ml Inj) 1,000 mcg IM DAILY [facility] Stop: 11/02/18 10:01 Last Admin: 10/30/18 09:41 Dose: 1,000 mcg Dextrose (Glutose 15) 0 gm PO ONCE PRN; Protocol PRN Reason: Hypoglycemia Protocol Last Admin: 10/24/18 08:49 Dose: 15 gm Dextrose (Dextrose 50% Inj) 50 ml IV PRN PRN; Protocol PRN Reason: Hypoglycemia Protocol Glucagon (Glucagen Diagnostic Kit) 0 mg IM STAT PRN; Protocol PRN Reason: Hypoglycemia Protocol Cefepime HCl 1 gm/ Dextrose 50 mls @ 100 mls/hr IVPB Q8H [facility]; Protocol Last Admin: 10/30/18 13:31 Dose: 100 mls/hr Vancomycin/Sodium Chloride (Vancomycin 1 Gm/Ns 200 Ml) 1 gm in 200 mls @ 133.333 mls/hr IVPB Q12H [facility]; Protocol Stop: 11/02/18 02:46 Last Admin: 10/30/18 14:06 Dose: 133.333 mls/hr Insulin Aspart (Novolog Mix 70/30 (70/30 Units/Ml)) 5 units SC BIDCC [facility] Last Admin: 10/30/18 08:22 Dose: 5 units Insulin Human Regular (Novolin R) 0 unit SC ACHS [facility]; Protocol Last Admin: 10/30/18 12:53 Dose: 4 units Pantoprazole Sodium (Protonix Ec Tab) 20 mg PO DAILY [facility] Last Admin: 10/30/18 09:41 Dose: 20 mg - Labs Labs: 10/27/18 06:55 10/27/18 06:55 PT 13.8 SECONDS (9.7-12.2) H 10/23/18 13:15 INR 1.3 10/23/18 13:15 APTT 25 SECONDS (21-34) 10/23/18 13:15
--- NOTE | 2018-10-30 15:31 | CP.PCM.PN ---
Subjective - Date & Time of Evaluation Date of Evaluation: 10/29/18 Time of Evaluation: 09:25 - Subjective Subjective: Patient seen and evaluated No cardiac events noted Physical Exam - Constitutional Appears: Well - Head Exam Head Exam: ATRAUMATIC, NORMAL INSPECTION - Eye Exam Eye Exam: EOMI, Normal appearance - Neck Exam Neck exam: Positive for: Normal Inspection - GI/Abdominal Exam GI & Abdominal Exam: Normal Bowel Sounds, Soft. absent: Distended, Firm, Guarding - Neurological Exam Neurological exam: Alert, Oriented x3 - Psychiatric Exam Psychiatric exam: Normal Affect, Normal Mood - Skin Skin Exam: Dry, Intact, Normal Color, Warm Assessment & Plan - Assessment and Plan (Free Text) Assessment: 52 y/o m with PMHx of DM presented to the ED and admitted on 10/23 s/p syncope per chart review. GI being consulted for diarrhea. bacteremia and s/p sepsis -10/23: e-coli in blood culture -patient still with leukocytosis 18.6, on abx --vanc 1g q12h, 10/24 to 10/29 --cefepime 1g q8h started 10/24 --flagyl 500 mg q8h 10/26-11/02 -ID Dr. Stewart consulted, appreciate recs Diarrhea -c. diff pending, also ordered stool leukocyte and stool cx -ddx: infectious, colitis, but denies bloody BM -pending FOBT Abdominal mass -pending official report of abdominal MRI -CTAP: 3.4 cm mass displacing abdominal aorta to the left -concern for malignancy. CEA 6.9H and CA 19-9 at 41.6H. pancytopenia -Heme onc consulted, Dr. Menendez, appreciate recs Near Normal EF PFO with left to right shunt Recommend medical mgt with ASA 81 daily Objective - Vital Signs/Intake and Output Vital Signs (last 24 hours): Temp Pulse Resp BP Pulse Ox 97.9 F 110 H 20 121/68 100 10/30/18 08:48 10/30/18 08:48 10/30/18 08:48 10/30/18 08:48 10/30/18 08:48 Intake and Output: 10/30/18 10/30/18 06:59 18:59 Intake Total 920 600 Output Total 950 Balance -30 600 - Medications Medications: Current Medications Acetaminophen (Tylenol 325mg Tab) 650 mg PO Q6 PRN PRN Reason: Fever >100.4 F Last Admin: 10/24/18 05:14 Dose: 650 mg Bismuth Subsalicylate (Pepto Bismol) 262 mg PO Q4H PRN PRN Reason: Diarrhea Cyanocobalamin (Vitamin B12 1000 Mcg/Ml Inj) 1,000 mcg IM DAILY [facility] Stop: 11/02/18 10:01 Last Admin: 10/30/18 09:41 Dose: 1,000 mcg Dextrose (Glutose 15) 0 gm PO ONCE PRN; Protocol PRN Reason: Hypoglycemia Protocol Last Admin: 10/24/18 08:49 Dose: 15 gm Dextrose (Dextrose 50% Inj) 50 ml IV PRN PRN; Protocol PRN Reason: Hypoglycemia Protocol Glucagon (Glucagen Diagnostic Kit) 0 mg IM STAT PRN; Protocol PRN Reason: Hypoglycemia Protocol Cefepime HCl 1 gm/ Dextrose 50 mls @ 100 mls/hr IVPB Q8H [facility]; Protocol Last Admin: 10/30/18 13:31 Dose: 100 mls/hr Vancomycin/Sodium Chloride (Vancomycin 1 Gm/Ns 200 Ml) 1 gm in 200 mls @ 133.333 mls/hr IVPB Q12H [facility]; Protocol Stop: 11/02/18 02:46 Last Admin: 10/30/18 14:06 Dose: 133.333 mls/hr Insulin Aspart (Novolog Mix 70/30 (70/30 Units/Ml)) 5 units SC BIDCC [facility] Last Admin: 10/30/18 08:22 Dose: 5 units Insulin Human Regular (Novolin R) 0 unit SC ACHS [facility]; Protocol Last Admin: 10/30/18 12:53 Dose: 4 units Pantoprazole Sodium (Protonix Ec Tab) 20 mg PO DAILY [facility] Last Admin: 10/30/18 09:41 Dose: 20 mg - Labs Labs: 10/27/18 06:55 10/27/18 06:55 PT 13.8 SECONDS (9.7-12.2) H 10/23/18 13:15 INR 1.3 10/23/18 13:15 APTT 25 SECONDS (21-34) 10/23/18 13:15
--- NOTE | 2018-10-30 19:00 | CP.PCM.PN ---
Subjective - Date & Time of Evaluation Date of Evaluation: 10/29/18 Time of Evaluation: 09:00 - Subjective Subjective: dictated Objective - Vital Signs/Intake and Output Vital Signs (last 24 hours): Temp Pulse Resp BP Pulse Ox 97.9 F 73 20 155/87 H 100 10/30/18 15:00 10/30/18 15:00 10/30/18 15:00 10/30/18 15:00 10/30/18 15:00 Intake and Output: 10/30/18 10/31/18 18:59 06:59 Intake Total 600 Balance 600 - Medications Medications: Current Medications Acetaminophen (Tylenol 325mg Tab) 650 mg PO Q6 PRN PRN Reason: Fever >100.4 F Last Admin: 10/24/18 05:14 Dose: 650 mg Bismuth Subsalicylate (Pepto Bismol) 262 mg PO Q4H PRN PRN Reason: Diarrhea Cyanocobalamin (Vitamin B12 1000 Mcg/Ml Inj) 1,000 mcg IM DAILY [facility] Stop: 11/02/18 10:01 Last Admin: 10/30/18 09:41 Dose: 1,000 mcg Dextrose (Glutose 15) 0 gm PO ONCE PRN; Protocol PRN Reason: Hypoglycemia Protocol Last Admin: 10/24/18 08:49 Dose: 15 gm Dextrose (Dextrose 50% Inj) 50 ml IV PRN PRN; Protocol PRN Reason: Hypoglycemia Protocol Glucagon (Glucagen Diagnostic Kit) 0 mg IM STAT PRN; Protocol PRN Reason: Hypoglycemia Protocol Cefepime HCl 1 gm/ Dextrose 50 mls @ 100 mls/hr IVPB Q8H [facility]; Protocol Last Admin: 10/30/18 13:31 Dose: 100 mls/hr Vancomycin/Sodium Chloride (Vancomycin 1 Gm/Ns 200 Ml) 1 gm in 200 mls @ 133.333 mls/hr IVPB Q12H [facility]; Protocol Stop: 11/02/18 02:46 Last Admin: 10/30/18 14:06 Dose: 133.333 mls/hr Insulin Aspart (Novolog Mix 70/30 (70/30 Units/Ml)) 5 units SC BIDCC [facility] Last Admin: 10/30/18 17:47 Dose: 5 units Insulin Human Regular (Novolin R) 0 unit SC ACHS [facility]; Protocol Last Admin: 10/30/18 17:47 Dose: 3 units Pantoprazole Sodium (Protonix Ec Tab) 20 mg PO DAILY [facility] Last Admin: 10/30/18 09:41 Dose: 20 mg - Labs Labs: 10/27/18 06:55 10/27/18 06:55 PT 13.8 SECONDS (9.7-12.2) H 10/23/18 13:15 INR 1.3 10/23/18 13:15 APTT 25 SECONDS (21-34) 10/23/18 13:15
--- NOTE | 2018-10-30 22:08 | CP.PCM.PN ---
Subjective - Date & Time of Evaluation Date of Evaluation: 10/28/18 Time of Evaluation: 12:00 - Subjective Subjective: No complaints. Objective - Vital Signs/Intake and Output Vital Signs (last 24 hours): Temp Pulse Resp BP Pulse Ox 97.9 F 73 20 155/87 H 100 10/30/18 15:00 10/30/18 15:00 10/30/18 15:00 10/30/18 15:00 10/30/18 15:00 Intake and Output: 10/30/18 10/31/18 18:59 06:59 Intake Total 600 Balance 600 - Medications Medications: Current Medications Acetaminophen (Tylenol 325mg Tab) 650 mg PO Q6 PRN PRN Reason: Fever >100.4 F Last Admin: 10/24/18 05:14 Dose: 650 mg Bismuth Subsalicylate (Pepto Bismol) 262 mg PO Q4H PRN PRN Reason: Diarrhea Cyanocobalamin (Vitamin B12 1000 Mcg/Ml Inj) 1,000 mcg IM DAILY [facility] Stop: 11/02/18 10:01 Last Admin: 10/30/18 09:41 Dose: 1,000 mcg Dextrose (Glutose 15) 0 gm PO ONCE PRN; Protocol PRN Reason: Hypoglycemia Protocol Last Admin: 10/24/18 08:49 Dose: 15 gm Dextrose (Dextrose 50% Inj) 50 ml IV PRN PRN; Protocol PRN Reason: Hypoglycemia Protocol Glucagon (Glucagen Diagnostic Kit) 0 mg IM STAT PRN; Protocol PRN Reason: Hypoglycemia Protocol Cefepime HCl 1 gm/ Dextrose 50 mls @ 100 mls/hr IVPB Q8H [facility]; Protocol Last Admin: 10/30/18 21:42 Dose: 100 mls/hr Vancomycin/Sodium Chloride (Vancomycin 1 Gm/Ns 200 Ml) 1 gm in 200 mls @ 133.333 mls/hr IVPB Q12H [facility]; Protocol Stop: 11/02/18 02:46 Last Admin: 10/30/18 14:06 Dose: 133.333 mls/hr Insulin Aspart (Novolog Mix 70/30 (70/30 Units/Ml)) 8 units SC BID [facility] Insulin Human Regular (Novolin R) 0 unit SC ACHS [facility]; Protocol Last Admin: 10/30/18 21:40 Dose: Not Given Pantoprazole Sodium (Protonix Ec Tab) 20 mg PO DAILY [facility] Last Admin: 10/30/18 09:41 Dose: 20 mg - Labs Labs: 10/27/18 06:55 10/27/18 06:55 PT 13.8 SECONDS (9.7-12.2) H 10/23/18 13:15 INR 1.3 10/23/18 13:15 APTT 25 SECONDS (21-34) 10/23/18 13:15 - Head Exam Head Exam: ATRAUMATIC - Eye Exam Eye Exam: Normal appearance - ENT Exam ENT Exam: Mucous Membranes Dry - Respiratory Exam Respiratory Exam: NORMAL BREATHING PATTERN - Cardiovascular Exam Cardiovascular Exam: +S1, +S2 - GI/Abdominal Exam GI & Abdominal Exam: Normal Bowel Sounds Assessment and Plan (1) Abdominal mass Assessment & Plan: ? lymphadenopathy given hx of pancreatic cancer and elevated tumor marker, will need outpatient PET CT scan for further evaluation if PET shows uptake, will need biopsy Status: Acute (2) Thrombocytopenia Assessment & Plan: improving suspect infection related Status: Acute (3) Anemia Assessment & Plan: anemia of chronic disease Status: Acute (4) Leukocytosis Assessment & Plan: improving with antibiotics Status: Acute
--- NOTE | 2018-10-30 22:09 | CP.PCM.PN ---
Subjective - Date & Time of Evaluation Date of Evaluation: 10/29/18 Time of Evaluation: 18:00 - Subjective Subjective: No complaints. Objective - Vital Signs/Intake and Output Vital Signs (last 24 hours): Temp Pulse Resp BP Pulse Ox 97.9 F 73 20 155/87 H 100 10/30/18 15:00 10/30/18 15:00 10/30/18 15:00 10/30/18 15:00 10/30/18 15:00 Intake and Output: 10/30/18 10/31/18 18:59 06:59 Intake Total 600 Balance 600 - Medications Medications: Current Medications Acetaminophen (Tylenol 325mg Tab) 650 mg PO Q6 PRN PRN Reason: Fever >100.4 F Last Admin: 10/24/18 05:14 Dose: 650 mg Bismuth Subsalicylate (Pepto Bismol) 262 mg PO Q4H PRN PRN Reason: Diarrhea Cyanocobalamin (Vitamin B12 1000 Mcg/Ml Inj) 1,000 mcg IM DAILY [facility] Stop: 11/02/18 10:01 Last Admin: 10/30/18 09:41 Dose: 1,000 mcg Dextrose (Glutose 15) 0 gm PO ONCE PRN; Protocol PRN Reason: Hypoglycemia Protocol Last Admin: 10/24/18 08:49 Dose: 15 gm Dextrose (Dextrose 50% Inj) 50 ml IV PRN PRN; Protocol PRN Reason: Hypoglycemia Protocol Glucagon (Glucagen Diagnostic Kit) 0 mg IM STAT PRN; Protocol PRN Reason: Hypoglycemia Protocol Cefepime HCl 1 gm/ Dextrose 50 mls @ 100 mls/hr IVPB Q8H [facility]; Protocol Last Admin: 10/30/18 21:42 Dose: 100 mls/hr Vancomycin/Sodium Chloride (Vancomycin 1 Gm/Ns 200 Ml) 1 gm in 200 mls @ 133.333 mls/hr IVPB Q12H [facility]; Protocol Stop: 11/02/18 02:46 Last Admin: 10/30/18 14:06 Dose: 133.333 mls/hr Insulin Aspart (Novolog Mix 70/30 (70/30 Units/Ml)) 8 units SC BID [facility] Insulin Human Regular (Novolin R) 0 unit SC ACHS [facility]; Protocol Last Admin: 10/30/18 21:40 Dose: Not Given Pantoprazole Sodium (Protonix Ec Tab) 20 mg PO DAILY [facility] Last Admin: 10/30/18 09:41 Dose: 20 mg - Labs Labs: 10/27/18 06:55 10/27/18 06:55 PT 13.8 SECONDS (9.7-12.2) H 10/23/18 13:15 INR 1.3 10/23/18 13:15 APTT 25 SECONDS (21-34) 10/23/18 13:15 - Head Exam Head Exam: ATRAUMATIC - Eye Exam Eye Exam: Normal appearance - ENT Exam ENT Exam: Mucous Membranes Dry - Respiratory Exam Respiratory Exam: NORMAL BREATHING PATTERN - Cardiovascular Exam Cardiovascular Exam: +S1, +S2 - GI/Abdominal Exam GI & Abdominal Exam: Normal Bowel Sounds Assessment and Plan (1) Abdominal mass Assessment & Plan: ? lymphadenopathy outpatient PET CT scan given prior hx of pancreatic cancer if PET positive, will need biopsy Status: Acute (2) Thrombocytopenia Assessment & Plan: slowly improving suspect infection related Status: Acute (3) Anemia Assessment & Plan: chronic disease Status: Acute (4) Leukocytosis Assessment & Plan: improving with antibiotics Status: Acute
--- NOTE | 2018-10-30 22:11 | CP.PCM.PN ---
Subjective - Date & Time of Evaluation Date of Evaluation: 10/30/18 Time of Evaluation: 18:00 - Subjective Subjective: No complaints. Objective - Vital Signs/Intake and Output Vital Signs (last 24 hours): Temp Pulse Resp BP Pulse Ox 97.9 F 73 20 155/87 H 100 10/30/18 15:00 10/30/18 15:00 10/30/18 15:00 10/30/18 15:00 10/30/18 15:00 Intake and Output: 10/30/18 10/31/18 18:59 06:59 Intake Total 600 Balance 600 - Medications Medications: Current Medications Acetaminophen (Tylenol 325mg Tab) 650 mg PO Q6 PRN PRN Reason: Fever >100.4 F Last Admin: 10/24/18 05:14 Dose: 650 mg Bismuth Subsalicylate (Pepto Bismol) 262 mg PO Q4H PRN PRN Reason: Diarrhea Cyanocobalamin (Vitamin B12 1000 Mcg/Ml Inj) 1,000 mcg IM DAILY [facility] Stop: 11/02/18 10:01 Last Admin: 10/30/18 09:41 Dose: 1,000 mcg Dextrose (Glutose 15) 0 gm PO ONCE PRN; Protocol PRN Reason: Hypoglycemia Protocol Last Admin: 10/24/18 08:49 Dose: 15 gm Dextrose (Dextrose 50% Inj) 50 ml IV PRN PRN; Protocol PRN Reason: Hypoglycemia Protocol Glucagon (Glucagen Diagnostic Kit) 0 mg IM STAT PRN; Protocol PRN Reason: Hypoglycemia Protocol Cefepime HCl 1 gm/ Dextrose 50 mls @ 100 mls/hr IVPB Q8H [facility]; Protocol Last Admin: 10/30/18 21:42 Dose: 100 mls/hr Vancomycin/Sodium Chloride (Vancomycin 1 Gm/Ns 200 Ml) 1 gm in 200 mls @ 133.333 mls/hr IVPB Q12H [facility]; Protocol Stop: 11/02/18 02:46 Last Admin: 10/30/18 14:06 Dose: 133.333 mls/hr Insulin Aspart (Novolog Mix 70/30 (70/30 Units/Ml)) 8 units SC BID [facility] Insulin Human Regular (Novolin R) 0 unit SC ACHS [facility]; Protocol Last Admin: 10/30/18 21:40 Dose: Not Given Pantoprazole Sodium (Protonix Ec Tab) 20 mg PO DAILY [facility] Last Admin: 10/30/18 09:41 Dose: 20 mg - Labs Labs: 10/27/18 06:55 10/27/18 06:55 PT 13.8 SECONDS (9.7-12.2) H 10/23/18 13:15 INR 1.3 10/23/18 13:15 APTT 25 SECONDS (21-34) 10/23/18 13:15 - Head Exam Head Exam: ATRAUMATIC - Eye Exam Eye Exam: Normal appearance - ENT Exam ENT Exam: Mucous Membranes Dry - Respiratory Exam Respiratory Exam: NORMAL BREATHING PATTERN - Cardiovascular Exam Cardiovascular Exam: +S1, +S2 - GI/Abdominal Exam GI & Abdominal Exam: Normal Bowel Sounds Assessment and Plan (1) Abdominal mass Assessment & Plan: ?lymphadenopathy given prior hx of pancreatic cancer, will need outpatient PET CT if PET positive, will need biopsy Status: Acute (2) Thrombocytopenia Assessment & Plan: slowly improving - suspect infx related Status: Acute (3) Anemia Assessment & Plan: chronic disease Status: Acute (4) Leukocytosis Assessment & Plan: improving with antibiotics Status: Acute
--- NOTE | 2018-10-30 22:39 | CP.PCM.PN ---
Subjective - Date & Time of Evaluation Date of Evaluation: 10/30/18 Time of Evaluation: 22:39 - Subjective Subjective: AFEBRILE, NO ACUTE EVENTS OVER NIGHT. ON IV ABX BLOOD CULTURES 1 SET +VE STREP VIRIDANS. 1 SET +VE E . COLI Objective - Vital Signs/Intake and Output Vital Signs (last 24 hours): Temp Pulse Resp BP Pulse Ox 97.9 F 73 20 155/87 H 100 10/30/18 15:00 10/30/18 15:00 10/30/18 15:00 10/30/18 15:00 10/30/18 15:00 Intake and Output: 10/30/18 10/31/18 18:59 06:59 Intake Total 600 500 Balance 600 500 - Medications Medications: Current Medications Acetaminophen (Tylenol 325mg Tab) 650 mg PO Q6 PRN PRN Reason: Fever >100.4 F Last Admin: 10/24/18 05:14 Dose: 650 mg Bismuth Subsalicylate (Pepto Bismol) 262 mg PO Q4H PRN PRN Reason: Diarrhea Cyanocobalamin (Vitamin B12 1000 Mcg/Ml Inj) 1,000 mcg IM DAILY [facility] Stop: 11/02/18 10:01 Last Admin: 10/30/18 09:41 Dose: 1,000 mcg Dextrose (Glutose 15) 0 gm PO ONCE PRN; Protocol PRN Reason: Hypoglycemia Protocol Last Admin: 10/24/18 08:49 Dose: 15 gm Dextrose (Dextrose 50% Inj) 50 ml IV PRN PRN; Protocol PRN Reason: Hypoglycemia Protocol Glucagon (Glucagen Diagnostic Kit) 0 mg IM STAT PRN; Protocol PRN Reason: Hypoglycemia Protocol Cefepime HCl 1 gm/ Dextrose 50 mls @ 100 mls/hr IVPB Q8H [facility]; Protocol Last Admin: 10/30/18 21:42 Dose: 100 mls/hr Vancomycin/Sodium Chloride (Vancomycin 1 Gm/Ns 200 Ml) 1 gm in 200 mls @ 133.333 mls/hr IVPB Q12H [facility]; Protocol Stop: 11/02/18 02:46 Last Admin: 10/30/18 14:06 Dose: 133.333 mls/hr Insulin Aspart (Novolog Mix 70/30 (70/30 Units/Ml)) 8 units SC BID [facility] Insulin Human Regular (Novolin R) 0 unit SC ACHS [facility]; Protocol Last Admin: 10/30/18 21:40 Dose: Not Given Pantoprazole Sodium (Protonix Ec Tab) 20 mg PO DAILY [facility] Last Admin: 10/30/18 09:41 Dose: 20 mg - Labs Labs: 10/27/18 06:55 10/27/18 06:55 PT 13.8 SECONDS (9.7-12.2) H 10/23/18 13:15 INR 1.3 10/23/18 13:15 APTT 25 SECONDS (21-34) 10/23/18 13:15 - Constitutional Appears: No Acute Distress - Head Exam Head Exam: NORMAL INSPECTION, NORMOCEPHALIC - Eye Exam Eye Exam: EOMI, PERRL - ENT Exam ENT Exam: Mucous Membranes Moist (POOR ORAL HYGIENE), Normal Oropharynx - Neck Exam Neck Exam: Normal Inspection. absent: Lymphadenopathy - Respiratory Exam Respiratory Exam: Clear to Ausculation Bilateral, NORMAL BREATHING PATTERN - Cardiovascular Exam Cardiovascular Exam: REGULAR RHYTHM, +S1, +S2 - GI/Abdominal Exam GI & Abdominal Exam: Soft, Normal Bowel Sounds. absent: Tenderness, Mass - Extremities Exam Extremities Exam: Normal Capillary Refill. absent: Calf Tenderness, Pedal Edema - Neurological Exam Neurological Exam: Alert, Awake, CN II-XII Intact, Normal Gait, Oriented x3, Reflexes Normal - Psychiatric Exam Psychiatric exam: Normal Mood - Skin Skin Exam: Normal Color, Warm Assessment and Plan (1) Gram negative sepsis Status: Acute (2) Gram positive sepsis Status: Acute (3) Sepsis Status: Acute (4) Abdominal pain Status: Acute (5) Abdominal mass Status: Acute (6) Hx of splenectomy Status: Acute (7) Diabetes Status: Acute (8) HTN (hypertension) Status: Acute - Assessment and Plan (Free Text) Plan: 1 SET +VE STREP VIRIDANS.-S- CEFOTRIAXONE,PCN, VANCOMYCIN 1 SET +VE E . COLI S- CEFEPIME PLAN; CHECK 2D ECHO R/O VEGETATIONS. IF -VE CONSIDER SOLA PT HAS STREP. VIRIDANS IN BLOOD WILL DISCUSS WITH CARDIOLOGY CONTINUE iv CEFEPIME 1 G EVERY 8 HOURLY .10/26/18 CONTINUE iv VANCOMYCIN 1 G EVERY 12 HOURLY.10/23/18 VANCO TROUGH LEVEL 17.5-OKAY. QFT-GOLD TB TEST IN PROGRESS. TB W/U IN PROGRESS. PT ON [place]/CONTACT PRECAUTIONS. CASE DISCUSSED WITH STAFF.
[2018-10-31] MEDS: Vancomycin 1 gm/NS 200 ml 1 GM/200 ML BAG IVPB SCH ×2 (03:16→13:50)
[2018-10-31] MEDS: LIPASE/PROTEASE/AMYLASE 4,200 U ECC PO SCH ×3 (07:55→17:47)
[2018-10-31] MEDS: (Novolin R) Insulin Human Regular 100 units/ml vial SC SCH ×4 (07:55→22:01)
[2018-10-31 08:07] LABS: BASO % 0.4 % (0.0-2.0); EOS # 0.1 K/uL (0.0-0.7); EOS % 1.7 % (0.0-4.0); HEMOGLOBIN 11.4 g/dL (12.0-18.0); LYMPH # 1.8 K/uL (1.0-4.3); LYMPH % 22.8 % (20.0-40.0); MEAN CELL VOLUME 92.1 fL (80.0-94.0); MEAN CORPUSCULAR HEMOGLOBIN 32.2 pg (27.0-31.0); MEAN PLATELET VOLUME 10.9 fL (7.2-11.7); MONO # 1.4 K/uL (0.0-0.8); MONO % 18.7 % (0.0-10.0); NEUT # 4.4 K/uL (1.8-7.0); NEUT % 56.4 % (50.0-75.0); NRBC % 0.3 % (0.0-2.0); RBC 3.54 Mil/uL (4.40-5.90); RED CELL DISTRIBUTION WIDTH 13.5 % (11.5-14.5); WHITE BLOOD COUNT 7.8 K/uL (4.8-10.8)
[2018-10-31 08:16] LABS: BLOOD UREA NITROGEN 3 mg/dL (9-20)
[2018-10-31 08:17] LABS: ALBUMIN 2.9 g/dL (3.5-5.0); ALT/SGPT 22 U/L (21-72); AST/SGOT 29 U/L (17-59); CALCIUM 8.1 mg/dl (8.6-10.4); GFR NON-AFRICAN AMERICAN > 60
--- NOTE | 2018-10-31 08:21 | PN ---
DATE: 10/30/2018 SUBJECTIVE: The patient is afebrile. His blood pressure is fluctuating. PHYSICAL EXAMINATION: VITAL SIGNS: BP is 155/87, pulse 73, respiratory rate 20, temperature 97.9. LUNGS: Clear. CARDIOVASCULAR SYSTEM: S1, S2, regular. ABDOMEN: Soft. ASSESSMENT: 1. Patent foramen ovale, most likely the patient also has infective endocarditis. Dennis Verdin MD
[2018-10-31] MEDS: Pantoprazole 20 mg EC Tab PO SCH (09:09)
[2018-10-31] MEDS: (Novolog Mix 70/30) Insulin Aspart/Insulin Aspar 100 units/ml SC SCH ×2 (09:10→17:30)
--- NOTE | 2018-10-31 12:44 | CP.PCM.PN ---
Subjective - Date & Time of Evaluation Date of Evaluation: 10/31/18 Time of Evaluation: 12:44 - Subjective Subjective: AFEBRILE, OFFERS NO NEW COMPLAINTS. ON IV ABX IV VANCOMYCIN IV CEFEPIME. LABS REVIEWED, BLOOD CULTURE +VE E.COLI/STREP VIRIDANS Objective - Vital Signs/Intake and Output Vital Signs (last 24 hours): Temp Pulse Resp BP Pulse Ox 98.5 F 73 20 157/84 H 99 10/31/18 07:10 10/31/18 07:10 10/31/18 07:10 10/31/18 07:10 10/31/18 07:10 Intake and Output: 10/31/18 10/31/18 06:59 18:59 Intake Total 870 Output Total 950 Balance -80 - Medications Medications: Current Medications Acetaminophen (Tylenol 325mg Tab) 650 mg PO Q6 PRN PRN Reason: Fever >100.4 F Last Admin: 10/24/18 05:14 Dose: 650 mg Bismuth Subsalicylate (Pepto Bismol) 262 mg PO Q4H PRN PRN Reason: Diarrhea Cyanocobalamin (Vitamin B12 1000 Mcg/Ml Inj) 1,000 mcg IM DAILY [facility] Stop: 11/02/18 10:01 Last Admin: 10/31/18 09:09 Dose: 1,000 mcg Dextrose (Glutose 15) 0 gm PO ONCE PRN; Protocol PRN Reason: Hypoglycemia Protocol Last Admin: 10/24/18 08:49 Dose: 15 gm Dextrose (Dextrose 50% Inj) 50 ml IV PRN PRN; Protocol PRN Reason: Hypoglycemia Protocol Glucagon (Glucagen Diagnostic Kit) 0 mg IM STAT PRN; Protocol PRN Reason: Hypoglycemia Protocol Cefepime HCl 1 gm/ Dextrose 50 mls @ 100 mls/hr IVPB Q8H [facility]; Protocol Last Admin: 10/31/18 12:34 Dose: 100 mls/hr Vancomycin/Sodium Chloride (Vancomycin 1 Gm/Ns 200 Ml) 1 gm in 200 mls @ 133.333 mls/hr IVPB Q12H [facility]; Protocol Stop: 11/02/18 02:46 Last Admin: 10/31/18 03:16 Dose: 133.333 mls/hr Insulin Aspart (Novolog Mix 70/30 (70/30 Units/Ml)) 8 units SC BID [facility] Last Admin: 10/31/18 09:10 Dose: 8 u Insulin Human Regular (Novolin R) 0 unit SC ACHS [facility]; Protocol Last Admin: 10/31/18 11:21 Dose: 6 units Pantoprazole Sodium (Protonix Ec Tab) 20 mg PO DAILY [facility] Last Admin: 10/31/18 09:09 Dose: 20 mg - Labs Labs: 10/31/18 07:00 10/31/18 07:00 PT 13.8 SECONDS (9.7-12.2) H 10/23/18 13:15 INR 1.3 10/23/18 13:15 APTT 25 SECONDS (21-34) 10/23/18 13:15 Assessment and Plan (1) Gram negative sepsis Status: Acute (2) Gram positive sepsis Status: Acute (3) Sepsis Status: Acute (4) Abdominal pain Status: Acute (5) Abdominal mass Status: Acute (6) Hx of splenectomy Status: Acute (7) Diabetes Status: Acute (8) HTN (hypertension) Status: Acute - Assessment and Plan (Free Text) Plan: PLAN; SEEN BY GI AND RECOMENDATIONS NOTED ? COLONOSCOPY WHEN STABLE AND -VE BLOOD CULTURES CHECK 2D ECHO R/O VEGETATIONS. IF -VE CONSIDER [facility] PT HAS STREP. VIRIDANS IN BLOOD WILL DISCUSS WITH CARDIOLOGY CONTINUE iv CEFEPIME 1 G EVERY 8 HOURLY .10/26/18 CONTINUE iv VANCOMYCIN 1 G EVERY 12 HOURLY.10/23/18 QFT-GOLD TB TEST IN PROGRESS.-P TB W/U IN PROGRESS.STOOL X AFB X 3 -P REPEAT BLOOD CULTURES X 2 SETS ORDERED TODAY.10/31/18 CHECK STOOLS FOR OB X2 10/31/18 PT ON [facility]/CONTACT PRECAUTIONS. CASE DISCUSSED WITH STAFF.
--- NOTE | 2018-10-31 15:13 | PN ---
DATE: 10/31/2018 LOCATION: 667, bed B. SUBJECTIVE: This is a 52-year-old male seen and examined early in rounds without significant clinical changes with period of hyperglycemia, no reported active bleeding. The entire chart is reviewed including but not limited to the most recent lab and radiology study results with today's lab results showed hemoglobin 11.4, hematocrit 32.6 with CO2 content 31 with low albumin and low total protein, BUN 3, creatinine 0.4 with elevated blood glucose level of 311, calcium 8.1. Most recently done abdominal MRI, official report is seen with evidence of pancreatic calcification with possible pancreatitis with splenomegaly and intrahepatic biliary duct dilatation, but no reported choledocholithiasis. PHYSICAL EXAMINATION: GENERAL: A 52-year-old male, appeared to be awake, alert, oriented. VITAL SIGNS: Afebrile with pulse of 78, respiratory rate 20 to 22, blood pressure 152/80. HEENT: Showed pale, dry oral mucous membranes. Nonicteric sclerae. LUNGS: Few scattered crepitations. Decreased air entry at bases. HEART: Positive S1 and S2. ABDOMEN: Soft. There was mild generalized tenderness. No mass or organomegaly. No rebound tenderness or guarding. IMPRESSION: 1. Re-exacerbation of peptic ulcer disease with recent change of bowel movement. 2. Chronic pancreatitis with evidence of recent attack of acute pancreatitis by radiology study results. 3. Anemia, secondary to above. 4. Known history of hypertension, poorly controlled diabetes mellitus. 5. Abnormal MRI with dilated common bile duct without evidence of choledocholithiasis. SUGGESTIONS: 1. Continue current management. 2. Colonoscopy is to be scheduled due to the patient's elevated CEA before. 3. Further recommendation to follow. Case is to be discussed with admitting . Paramjit Ramos MD
--- NOTE | 2018-10-31 21:34 | CP.PCM.PN ---
Subjective - Date & Time of Evaluation Date of Evaluation: 10/31/18 Time of Evaluation: 09:00 - Subjective Subjective: dictated Objective - Vital Signs/Intake and Output Vital Signs (last 24 hours): Temp Pulse Resp BP Pulse Ox 98.5 F 84 20 157/87 H 100 10/31/18 16:00 10/31/18 16:00 10/31/18 16:00 10/31/18 16:00 10/31/18 16:00 Intake and Output: 10/31/18 11/01/18 18:59 06:59 Intake Total 650 Output Total 250 Balance 400 - Medications Medications: Current Medications Acetaminophen (Tylenol 325mg Tab) 650 mg PO Q6 PRN PRN Reason: Fever >100.4 F Last Admin: 10/24/18 05:14 Dose: 650 mg Bismuth Subsalicylate (Pepto Bismol) 262 mg PO Q4H PRN PRN Reason: Diarrhea Cyanocobalamin (Vitamin B12 1000 Mcg/Ml Inj) 1,000 mcg IM DAILY [facility] Stop: 11/02/18 10:01 Last Admin: 10/31/18 09:09 Dose: 1,000 mcg Dextrose (Glutose 15) 0 gm PO ONCE PRN; Protocol PRN Reason: Hypoglycemia Protocol Last Admin: 10/24/18 08:49 Dose: 15 gm Dextrose (Dextrose 50% Inj) 50 ml IV PRN PRN; Protocol PRN Reason: Hypoglycemia Protocol Glucagon (Glucagen Diagnostic Kit) 0 mg IM STAT PRN; Protocol PRN Reason: Hypoglycemia Protocol Cefepime HCl 1 gm/ Dextrose 50 mls @ 100 mls/hr IVPB Q8H [facility]; Protocol Last Admin: 10/31/18 12:34 Dose: 100 mls/hr Vancomycin/Sodium Chloride (Vancomycin 1 Gm/Ns 200 Ml) 1 gm in 200 mls @ 133.333 mls/hr IVPB Q12H [facility]; Protocol Stop: 11/02/18 02:46 Last Admin: 10/31/18 13:50 Dose: 133.333 mls/hr Insulin Aspart (Novolog Mix 70/30 (70/30 Units/Ml)) 8 units SC BID [facility] Last Admin: 10/31/18 17:30 Dose: 8 u Insulin Human Regular (Novolin R) 0 unit SC ACHS [facility]; Protocol Last Admin: 10/31/18 17:30 Dose: 4 units Pantoprazole Sodium (Protonix Ec Tab) 20 mg PO DAILY [facility] Last Admin: 10/31/18 09:09 Dose: 20 mg - Labs Labs: 10/31/18 07:00 10/31/18 07:00 PT 13.8 SECONDS (9.7-12.2) H 10/23/18 13:15 INR 1.3 10/23/18 13:15 APTT 25 SECONDS (21-34) 10/23/18 13:15
[2018-11-01] MEDS: Vancomycin 1 gm/NS 200 ml 1 GM/200 ML BAG IVPB SCH ×2 (03:03→14:56)
--- NOTE | 2018-11-01 06:50 | CP.PCM.PN ---
Subjective - Date & Time of Evaluation Date of Evaluation: 10/31/18 Time of Evaluation: 20:05 - Subjective Subjective: Patient seen and evaluated Denies chest pain and dyspnea No cardiac events noted Physical Exam - Constitutional Appears: Well - Head Exam Head Exam: ATRAUMATIC, NORMAL INSPECTION - Eye Exam Eye Exam: EOMI, Normal appearance - Neck Exam Neck exam: Positive for: Normal Inspection - GI/Abdominal Exam GI & Abdominal Exam: Normal Bowel Sounds, Soft. absent: Distended, Firm, Guarding - Neurological Exam Neurological exam: Alert, Oriented x3 - Psychiatric Exam Psychiatric exam: Normal Affect, Normal Mood - Skin Skin Exam: Dry, Intact, Normal Color, Warm Assessment & Plan - Assessment and Plan (Free Text) Assessment: 52 y/o m with PMHx of DM presented to the ED and admitted on 10/23 s/p syncope per chart review. GI being consulted for diarrhea. bacteremia and s/p sepsis -10/23: e-coli in blood culture -patient still with leukocytosis 18.6, on abx --vanc 1g q12h, 10/24 to 10/29 --cefepime 1g q8h started 10/24 --flagyl 500 mg q8h 10/26-11/02 -ID Dr. Stewart consulted, appreciate recs Abdominal mass -pending official report of abdominal MRI -CTAP: 3.4 cm mass displacing abdominal aorta to the left -concern for malignancy. CEA 6.9H and CA 19-9 at 41.6H. pancytopenia -[facility] onc consulted, Dr. Menendez, appreciate recs Near Normal EF PFO with left to right shunt Recommend medical mgt with ASA 81 daily Objective - Vital Signs/Intake and Output Vital Signs (last 24 hours): Temp Pulse Resp BP Pulse Ox 98.5 F 84 20 157/87 H 100 10/31/18 16:00 10/31/18 16:00 10/31/18 16:00 10/31/18 16:00 10/31/18 16:00 Intake and Output: 10/31/18 11/01/18 18:59 06:59 Intake Total 650 Output Total 250 Balance 400 - Medications Medications: Current Medications Acetaminophen (Tylenol 325mg Tab) 650 mg PO Q6 PRN PRN Reason: Fever >100.4 F Last Admin: 10/24/18 05:14 Dose: 650 mg Bismuth Subsalicylate (Pepto Bismol) 262 mg PO Q4H PRN PRN Reason: Diarrhea Cyanocobalamin (Vitamin B12 1000 Mcg/Ml Inj) 1,000 mcg IM DAILY [facility] Stop: 11/02/18 10:01 Last Admin: 10/31/18 09:09 Dose: 1,000 mcg Dextrose (Glutose 15) 0 gm PO ONCE PRN; Protocol PRN Reason: Hypoglycemia Protocol Last Admin: 10/24/18 08:49 Dose: 15 gm Dextrose (Dextrose 50% Inj) 50 ml IV PRN PRN; Protocol PRN Reason: Hypoglycemia Protocol Glucagon (Glucagen Diagnostic Kit) 0 mg IM STAT PRN; Protocol PRN Reason: Hypoglycemia Protocol Cefepime HCl 1 gm/ Dextrose 50 mls @ 100 mls/hr IVPB Q8H [facility]; Protocol Last Admin: 11/01/18 04:59 Dose: 100 mls/hr Vancomycin/Sodium Chloride (Vancomycin 1 Gm/Ns 200 Ml) 1 gm in 200 mls @ 133.333 mls/hr IVPB Q12H [facility]; Protocol Stop: 11/02/18 02:46 Last Admin: 11/01/18 03:03 Dose: 133.333 mls/hr Insulin Aspart (Novolog Mix 70/30 (70/30 Units/Ml)) 8 units SC BID [facility] Last Admin: 10/31/18 17:30 Dose: 8 u Insulin Human Regular (Novolin R) 0 unit SC ACHS [facility]; Protocol Last Admin: 10/31/18 22:01 Dose: Not Given Pantoprazole Sodium (Protonix Ec Tab) 20 mg PO DAILY [facility] Last Admin: 10/31/18 09:09 Dose: 20 mg - Labs Labs: 10/31/18 07:00 10/31/18 07:00 PT 13.8 SECONDS (9.7-12.2) H 10/23/18 13:15 INR 1.3 10/23/18 13:15 APTT 25 SECONDS (21-34) 10/23/18 13:15
[2018-11-01] MEDS: (Novolin R) Insulin Human Regular 100 units/ml vial SC SCH ×4 (09:46→21:53)
[2018-11-01] MEDS: (Novolog Mix 70/30) Insulin Aspart/Insulin Aspar 100 units/ml SC SCH ×2 (09:47→18:05)
[2018-11-01] MEDS: LIPASE/PROTEASE/AMYLASE 4,200 U ECC PO SCH ×3 (09:48→18:05)
[2018-11-01] MEDS: Pantoprazole 20 mg EC Tab PO SCH (09:48)
[2018-11-01] MEDS ORDERED: (Novolog Mix 70/30) Insulin Aspart/Insulin Aspar 100 units/ml SC SCH (10:04)
[2018-11-01 17:17] LABS: SOURCE STOOL
--- NOTE | 2018-11-01 18:02 | CP.PCM.PN ---
Subjective - Date & Time of Evaluation Date of Evaluation: 10/31/18 Time of Evaluation: 12:00 - Subjective Subjective: NO complaints. Objective - Vital Signs/Intake and Output Vital Signs (last 24 hours): Temp Pulse Resp BP Pulse Ox 97.9 F 67 20 173/89 H 96 11/01/18 08:52 11/01/18 08:52 11/01/18 08:52 11/01/18 08:52 11/01/18 08:52 Intake and Output: 11/01/18 11/01/18 06:59 18:59 Intake Total 370 Balance 370 - Medications Medications: Current Medications Acetaminophen (Tylenol 325mg Tab) 650 mg PO Q6 PRN PRN Reason: Fever >100.4 F Last Admin: 10/24/18 05:14 Dose: 650 mg Bismuth Subsalicylate (Pepto Bismol) 262 mg PO Q4H PRN PRN Reason: Diarrhea Clopidogrel Bisulfate (Plavix) 75 mg PO DAILY [facility] Cyanocobalamin (Vitamin B12 1000 Mcg/Ml Inj) 1,000 mcg IM DAILY [facility] Stop: 11/02/18 10:01 Last Admin: 11/01/18 09:47 Dose: 1,000 mcg Dextrose (Glutose 15) 0 gm PO ONCE PRN; Protocol PRN Reason: Hypoglycemia Protocol Last Admin: 10/24/18 08:49 Dose: 15 gm Dextrose (Dextrose 50% Inj) 50 ml IV PRN PRN; Protocol PRN Reason: Hypoglycemia Protocol Glucagon (Glucagen Diagnostic Kit) 0 mg IM STAT PRN; Protocol PRN Reason: Hypoglycemia Protocol Cefepime HCl 1 gm/ Dextrose 50 mls @ 100 mls/hr IVPB Q8H [facility]; Protocol Last Admin: 11/01/18 12:54 Dose: 100 mls/hr Vancomycin/Sodium Chloride (Vancomycin 1 Gm/Ns 200 Ml) 1 gm in 200 mls @ 133.333 mls/hr IVPB Q12H [facility]; Protocol Stop: 11/02/18 02:46 Last Admin: 11/01/18 14:56 Dose: 133.333 mls/hr Insulin Aspart (Novolog Mix 70/30 (70/30 Units/Ml)) 12 units SC BID [facility] Insulin Human Regular (Novolin R) 0 unit SC ACHS [facility]; Protocol Last Admin: 11/01/18 12:55 Dose: 4 units Losartan Potassium (Cozaar) 50 mg PO DAILY [facility] Last Admin: 11/01/18 14:52 Dose: 50 mg Pantoprazole Sodium (Protonix Ec Tab) 20 mg PO DAILY [facility] Last Admin: 11/01/18 09:48 Dose: 20 mg - Labs Labs: 10/31/18 07:00 10/31/18 07:00 PT 13.8 SECONDS (9.7-12.2) H 10/23/18 13:15 INR 1.3 10/23/18 13:15 APTT 25 SECONDS (21-34) 10/23/18 13:15 - Head Exam Head Exam: ATRAUMATIC - Eye Exam Eye Exam: Normal appearance - ENT Exam ENT Exam: Mucous Membranes Dry - Respiratory Exam Respiratory Exam: NORMAL BREATHING PATTERN - Cardiovascular Exam Cardiovascular Exam: +S1, +S2 - GI/Abdominal Exam GI & Abdominal Exam: Normal Bowel Sounds Assessment and Plan (1) Abdominal mass Assessment & Plan: ? lymphadenopathy outpatient PET CT scan - hx of pancreratic ca Status: Acute (2) Thrombocytopenia Assessment & Plan: suspect infection related slowly improving Status: Acute (3) Anemia Assessment & Plan: chronic disease Status: Acute (4) Leukocytosis Assessment & Plan: improving with antibiotcs Status: Acute
--- NOTE | 2018-11-01 18:03 | CP.PCM.PN ---
Subjective - Date & Time of Evaluation Date of Evaluation: 11/01/18 Time of Evaluation: 16:00 - Subjective Subjective: No complaints. Objective - Vital Signs/Intake and Output Vital Signs (last 24 hours): Temp Pulse Resp BP Pulse Ox 97.9 F 67 20 173/89 H 96 11/01/18 08:52 11/01/18 08:52 11/01/18 08:52 11/01/18 08:52 11/01/18 08:52 Intake and Output: 11/01/18 11/01/18 06:59 18:59 Intake Total 370 Balance 370 - Medications Medications: Current Medications Acetaminophen (Tylenol 325mg Tab) 650 mg PO Q6 PRN PRN Reason: Fever >100.4 F Last Admin: 10/24/18 05:14 Dose: 650 mg Bismuth Subsalicylate (Pepto Bismol) 262 mg PO Q4H PRN PRN Reason: Diarrhea Clopidogrel Bisulfate (Plavix) 75 mg PO DAILY [facility] Cyanocobalamin (Vitamin B12 1000 Mcg/Ml Inj) 1,000 mcg IM DAILY [facility] Stop: 11/02/18 10:01 Last Admin: 11/01/18 09:47 Dose: 1,000 mcg Dextrose (Glutose 15) 0 gm PO ONCE PRN; Protocol PRN Reason: Hypoglycemia Protocol Last Admin: 10/24/18 08:49 Dose: 15 gm Dextrose (Dextrose 50% Inj) 50 ml IV PRN PRN; Protocol PRN Reason: Hypoglycemia Protocol Glucagon (Glucagen Diagnostic Kit) 0 mg IM STAT PRN; Protocol PRN Reason: Hypoglycemia Protocol Cefepime HCl 1 gm/ Dextrose 50 mls @ 100 mls/hr IVPB Q8H [facility]; Protocol Last Admin: 11/01/18 12:54 Dose: 100 mls/hr Vancomycin/Sodium Chloride (Vancomycin 1 Gm/Ns 200 Ml) 1 gm in 200 mls @ 133.333 mls/hr IVPB Q12H [facility]; Protocol Stop: 11/02/18 02:46 Last Admin: 11/01/18 14:56 Dose: 133.333 mls/hr Insulin Aspart (Novolog Mix 70/30 (70/30 Units/Ml)) 12 units SC BID [facility] Insulin Human Regular (Novolin R) 0 unit SC ACHS [facility]; Protocol Last Admin: 11/01/18 12:55 Dose: 4 units Losartan Potassium (Cozaar) 50 mg PO DAILY [facility] Last Admin: 11/01/18 14:52 Dose: 50 mg Pantoprazole Sodium (Protonix Ec Tab) 20 mg PO DAILY [facility] Last Admin: 11/01/18 09:48 Dose: 20 mg - Labs Labs: 10/31/18 07:00 10/31/18 07:00 PT 13.8 SECONDS (9.7-12.2) H 10/23/18 13:15 INR 1.3 10/23/18 13:15 APTT 25 SECONDS (21-34) 10/23/18 13:15 - Head Exam Head Exam: ATRAUMATIC - Eye Exam Eye Exam: Normal appearance - ENT Exam ENT Exam: Mucous Membranes Dry - Respiratory Exam Respiratory Exam: NORMAL BREATHING PATTERN - Cardiovascular Exam Cardiovascular Exam: +S1, +S2 - GI/Abdominal Exam GI & Abdominal Exam: Normal Bowel Sounds Assessment and Plan (1) Abdominal mass Assessment & Plan: outpatient PET CT given hx of pancreatic cancer Status: Acute (2) Anemia Assessment & Plan: anemia of chronic disease Status: Acute (3) Leukocytosis Assessment & Plan: resolved Status: Acute (4) Thrombocytopenia Assessment & Plan: resolved Status: Acute
--- NOTE | 2018-11-01 18:59 | PN ---
DATE: 11/01/2018 LOCATION: 667, Bed B. SUBJECTIVE: This is a 52-year-old male seen and examined in rounds with the staff in the floor without any significant clinical reported changes. The entire chart is reviewed including but not limited to the most recent lab results and today's blood glucose level is 270 with a recently reported low hemoglobin and hematocrit with low albumin, low total protein and low BUN and creatinine, but CO2 content of 31. The patient is still having complaints of generalized weakness and malaise, but afebrile. PHYSICAL EXAMINATION: GENERAL: A 52-year-old male, afebrile with pulse of 70, respiratory rate 20 to 22, blood pressure of 166/84. HEENT: Showed pale dry oral mucoid membrane. Nonicteric sclerae. LUNGS: Few scattered crepitation. Decreased air entry at bases. HEART: Positive S1 and S2. ABDOMEN: Soft with mild generalized tenderness. No mass or organomegaly. No rebound tenderness or guarding. EXTREMITIES: Without significant cyanosis or clubbing but mild lower extremity edematous changes. NEUROLOGICAL: No reported new neurological deficits, sensory or motor. IMPRESSION: 1. Chronic pancreatitis with evidence of recent attack of acute pancreatitis by radiology study results. 2. Known history of poorly controlled diabetes mellitus and hypertension. 3. Anemia most likely secondary to above with re-exacerbation of peptic ulcer disease. 4. Abnormal MRI. SUGGESTIONS: 1. Continue current management. 2. Adjust IV antibiotics due to the gram positive septicemia and the gram-negative septicemia with the ID technology methodology consultant. 3. No aggressive GI workup in the meantime until the patient is more stable clinically. Further recommendation to follow. Paramjit Ramos MD
--- NOTE | 2018-11-01 20:10 | CP.PCM.PN ---
Subjective - Date & Time of Evaluation Date of Evaluation: 11/01/18 Time of Evaluation: 20:10 - Subjective Subjective: AFEBRILE, AAO C/O LOOSE STOOLS. ON IV ABX LABS REVIEWED, THROMBOCYTOPENIA IMPROVED BLOOD CULTURE STREP VIRIDANS- S CEFOTRIAXONE BLOOD CULTURE +VE E.COLI S CTX, MERREM, CEFEPIME CASE DISCUSSED WITH ONCOLOGY DR ORELILY. ?CONSIDER IR ASPIRATION CYSTIC MASS/NECROTIC LYMPHADENOPATHY . WILL DISCUSS W IR DR GUERRA. Objective - Vital Signs/Intake and Output Vital Signs (last 24 hours): Temp Pulse Resp BP Pulse Ox 97.9 F 89 20 167/89 H 99 11/01/18 18:51 11/01/18 18:51 11/01/18 18:51 11/01/18 18:51 11/01/18 18:51 - Medications Medications: Current Medications Acetaminophen (Tylenol 325mg Tab) 650 mg PO Q6 PRN PRN Reason: Fever >100.4 F Last Admin: 10/24/18 05:14 Dose: 650 mg Bismuth Subsalicylate (Pepto Bismol) 262 mg PO Q4H PRN PRN Reason: Diarrhea Clopidogrel Bisulfate (Plavix) 75 mg PO DAILY [facility] Cyanocobalamin (Vitamin B12 1000 Mcg/Ml Inj) 1,000 mcg IM DAILY [facility] Stop: 11/02/18 10:01 Last Admin: 11/01/18 09:47 Dose: 1,000 mcg Dextrose (Glutose 15) 0 gm PO ONCE PRN; Protocol PRN Reason: Hypoglycemia Protocol Last Admin: 10/24/18 08:49 Dose: 15 gm Dextrose (Dextrose 50% Inj) 50 ml IV PRN PRN; Protocol PRN Reason: Hypoglycemia Protocol Glucagon (Glucagen Diagnostic Kit) 0 mg IM STAT PRN; Protocol PRN Reason: Hypoglycemia Protocol Cefepime HCl 1 gm/ Dextrose 50 mls @ 100 mls/hr IVPB Q8H [facility]; Protocol Last Admin: 11/01/18 12:54 Dose: 100 mls/hr Vancomycin/Sodium Chloride (Vancomycin 1 Gm/Ns 200 Ml) 1 gm in 200 mls @ 133.333 mls/hr IVPB Q12H [facility]; Protocol Stop: 11/02/18 02:46 Last Admin: 11/01/18 14:56 Dose: 133.333 mls/hr Insulin Aspart (Novolog Mix 70/30 (70/30 Units/Ml)) 12 units SC BID [facility] Last Admin: 11/01/18 18:05 Dose: 12 unit Insulin Human Regular (Novolin R) 0 unit SC ACHS [facility]; Protocol Last Admin: 11/01/18 18:06 Dose: 4 units Losartan Potassium (Cozaar) 50 mg PO DAILY [facility] Last Admin: 11/01/18 14:52 Dose: 50 mg Pantoprazole Sodium (Protonix Ec Tab) 20 mg PO DAILY [facility] Last Admin: 11/01/18 09:48 Dose: 20 mg - Labs Labs: 10/31/18 07:00 10/31/18 07:00 PT 13.8 SECONDS (9.7-12.2) H 10/23/18 13:15 INR 1.3 10/23/18 13:15 APTT 25 SECONDS (21-34) 10/23/18 13:15 - Constitutional Appears: No Acute Distress, Cachectic, Chronically Ill - Head Exam Head Exam: NORMAL INSPECTION - Eye Exam Eye Exam: EOMI, PERRL - ENT Exam ENT Exam: Normal Oropharynx - Neck Exam Neck Exam: Normal Inspection - Respiratory Exam Respiratory Exam: Clear to Ausculation Bilateral, NORMAL BREATHING PATTERN - Cardiovascular Exam Cardiovascular Exam: REGULAR RHYTHM, +S1, +S2 - GI/Abdominal Exam GI & Abdominal Exam: Soft, Normal Bowel Sounds. absent: Mass - Extremities Exam Extremities Exam: Normal Capillary Refill. absent: Calf Tenderness, Pedal Edema - Neurological Exam Neurological Exam: Alert, Awake, CN II-XII Intact, Normal Gait, Oriented x3, Reflexes Normal - Psychiatric Exam Psychiatric exam: Normal Mood - Skin Skin Exam: Normal Color, Warm Assessment and Plan (1) Gram negative sepsis Status: Acute (2) Gram positive sepsis Status: Acute (3) Sepsis Status: Acute (4) Abdominal pain Status: Acute (5) Abdominal mass Status: Acute (6) Hx of splenectomy Status: Acute (7) Diabetes Status: Acute (8) HTN (hypertension) Status: Acute - Assessment and Plan (Free Text) Plan: DC iv CEFEPIME 1 G EVERY 8 HOURLY .10/26/18 DC iv VANCOMYCIN 1 G EVERY 12 HOURLY.10/23/18 START IV ROCEPHIN 1GM IVPB Q 12HRLY 11/01/18 QFT-GOLD TB TEST IN PROGRESS.-P STOOL X AFB X 3 -P REPEAT BLOOD CULTURES X 2 SETS -VE X24HRS CHECK STOOLS FOR OB X2 10/31/18 F/U STOOLS FOR AFB DC [facility]- PRECAUTIONS CXR -VE PT IS W/U FOR GI -NECROTIC LYMPHADENOPATHY R/O MTB VS [facility] CONTINUE ENTERIC -CONTACT PRECAUTIONS. CASE DISCUSSED WITH OFFICIAL COURT INTERPRETER KT. WILL DISCUSS W DR DEVINE -CARDIOLOGY FOR [facility].
--- NOTE | 2018-11-01 23:12 | CP.PCM.PN ---
Subjective - Date & Time of Evaluation Date of Evaluation: 11/01/18 Time of Evaluation: 08:00 - Subjective Subjective: dictated Objective - Vital Signs/Intake and Output Vital Signs (last 24 hours): Temp Pulse Resp BP Pulse Ox 97.9 F 89 20 167/89 H 99 11/01/18 18:51 11/01/18 18:51 11/01/18 18:51 11/01/18 18:51 11/01/18 18:51 - Medications Medications: Current Medications Acetaminophen (Tylenol 325mg Tab) 650 mg PO Q6 PRN PRN Reason: Fever >100.4 F Last Admin: 10/24/18 05:14 Dose: 650 mg Bismuth Subsalicylate (Pepto Bismol) 262 mg PO Q4H PRN PRN Reason: Diarrhea Clopidogrel Bisulfate (Plavix) 75 mg PO DAILY [facility] Cyanocobalamin (Vitamin B12 1000 Mcg/Ml Inj) 1,000 mcg IM DAILY [facility] Stop: 11/02/18 10:01 Last Admin: 11/01/18 09:47 Dose: 1,000 mcg Dextrose (Glutose 15) 0 gm PO ONCE PRN; Protocol PRN Reason: Hypoglycemia Protocol Last Admin: 10/24/18 08:49 Dose: 15 gm Dextrose (Dextrose 50% Inj) 50 ml IV PRN PRN; Protocol PRN Reason: Hypoglycemia Protocol Glucagon (Glucagen Diagnostic Kit) 0 mg IM STAT PRN; Protocol PRN Reason: Hypoglycemia Protocol Cefepime HCl 1 gm/ Dextrose 50 mls @ 100 mls/hr IVPB Q8H [facility]; Protocol Last Admin: 11/01/18 21:41 Dose: 100 mls/hr Vancomycin/Sodium Chloride (Vancomycin 1 Gm/Ns 200 Ml) 1 gm in 200 mls @ 133.333 mls/hr IVPB Q12H [facility]; Protocol Stop: 11/02/18 02:46 Last Admin: 11/01/18 14:56 Dose: 133.333 mls/hr Insulin Aspart (Novolog Mix 70/30 (70/30 Units/Ml)) 12 units SC BID [facility] Last Admin: 11/01/18 18:05 Dose: 12 unit Insulin Human Regular (Novolin R) 0 unit SC ACHS [facility]; Protocol Last Admin: 11/01/18 21:53 Dose: Not Given Losartan Potassium (Cozaar) 50 mg PO DAILY [facility] Last Admin: 11/01/18 14:52 Dose: 50 mg Pantoprazole Sodium (Protonix Ec Tab) 20 mg PO DAILY [facility] Last Admin: 11/01/18 09:48 Dose: 20 mg - Labs Labs: 10/31/18 07:00 10/31/18 07:00 PT 13.8 SECONDS (9.7-12.2) H 10/23/18 13:15 INR 1.3 10/23/18 13:15 APTT 25 SECONDS (21-34) 10/23/18 13:15
--- NOTE | 2018-11-02 03:09 | PN ---
DATE: 11/01/2018 SUBJECTIVE: The patient is afebrile, feels better. Blood pressure is up. Blood sugar is high, and insulin is being adjusted. No fever. No chills. is pending. The patient has blood culture positive for Strep viridans and also E. coli, on antibiotics. PHYSICAL EXAMINATION: VITAL SIGNS: Blood pressure 167/89, pulse 89, respiratory rate 20, and temperature 97.9. LUNGS: Clear. CARDIOVASCULAR SYSTEM: S1 and S2, regular. ABDOMEN: Soft, nontender. Bowel sounds are positive. CENTRAL NERVOUS SYSTEM: Awake, alert, and oriented x3. ASSESSMENT: 1. Hypertension. 2. Poorly controlled diabetes. 3. Septicemia, rule out infective endocarditis with a history of patent foramen ovale. 4. History of prior pancreatic cancer, status post resection. PLAN: Continue to monitor the patient. Dennis Verdin MD
[2018-11-02] MEDS: LIPASE/PROTEASE/AMYLASE 4,200 U ECC PO SCH ×3 (08:22→17:38)
[2018-11-02] MEDS: (Novolin R) Insulin Human Regular 100 units/ml vial SC SCH ×4 (08:23→21:27)
[2018-11-02] MEDS: Pantoprazole 20 mg EC Tab PO SCH (09:43)
[2018-11-02] MEDS: (Novolog Mix 70/30) Insulin Aspart/Insulin Aspar 100 units/ml SC SCH ×2 (09:50→17:30)
--- NOTE | 2018-11-02 10:55 | CP.PCM.PN ---
Subjective - Date & Time of Evaluation Date of Evaluation: 11/01/18 Time of Evaluation: 19:35 - Subjective Subjective: Patient seen and evaluated Denies chest pain and dyspnea Blood cultures positive SOLA requested by ID awaiting TB test results Physical Exam - Constitutional Appears: Well - Head Exam Head Exam: ATRAUMATIC, NORMAL INSPECTION - Eye Exam Eye Exam: EOMI, Normal appearance - Neck Exam Neck exam: Positive for: Normal Inspection - GI/Abdominal Exam GI & Abdominal Exam: Normal Bowel Sounds, Soft. absent: Distended, Firm, Guarding - Neurological Exam Neurological exam: Alert, Oriented x3 - Psychiatric Exam Psychiatric exam: Normal Affect, Normal Mood - Skin Skin Exam: Dry, Intact, Normal Color, Warm Assessment & Plan - Assessment and Plan (Free Text) Assessment: 52 y/o m with PMHx of DM presented to the ED and admitted on 10/23 s/p syncope per chart review. GI being consulted for diarrhea. bacteremia and s/p sepsis -10/23: e-coli in blood culture -patient still with leukocytosis 18.6, on abx --vanc 1g q12h, 10/24 to 10/29 --cefepime 1g q8h started 10/24 --flagyl 500 mg q8h 10/26-11/02 -ID Dr. Stewart consulted, appreciate recs Abdominal mass -pending official report of abdominal MRI -CTAP: 3.4 cm mass displacing abdominal aorta to the left -concern for malignancy. CEA 6.9H and CA 19-9 at 41.6H. pancytopenia -[facility] onc consulted, Dr. Menendez, appreciate recs Near Normal EF PFO with left to right shunt Recommend medical mgt with ASA 81 daily SOLA after TB ruled out Objective - Vital Signs/Intake and Output Vital Signs (last 24 hours): Temp Pulse Resp BP Pulse Ox 98.2 F 71 20 155/87 H 100 11/02/18 08:00 11/02/18 08:00 11/02/18 08:00 11/02/18 08:00 11/02/18 08:00 - Medications Medications: Current Medications Acetaminophen (Tylenol 325mg Tab) 650 mg PO Q6 PRN PRN Reason: Fever >100.4 F Last Admin: 10/24/18 05:14 Dose: 650 mg Bismuth Subsalicylate (Pepto Bismol) 262 mg PO Q4H PRN PRN Reason: Diarrhea Clopidogrel Bisulfate (Plavix) 75 mg PO DAILY [facility] Last Admin: 11/02/18 09:43 Dose: 75 mg Dextrose (Glutose 15) 0 gm PO ONCE PRN; Protocol PRN Reason: Hypoglycemia Protocol Last Admin: 10/24/18 08:49 Dose: 15 gm Dextrose (Dextrose 50% Inj) 50 ml IV PRN PRN; Protocol PRN Reason: Hypoglycemia Protocol Glucagon (Glucagen Diagnostic Kit) 0 mg IM STAT PRN; Protocol PRN Reason: Hypoglycemia Protocol Ceftriaxone Sodium 1 gm/ (Sodium Chloride) 100 mls @ 100 mls/hr IVPB Q12H [facility]; Protocol Last Admin: 11/02/18 09:43 Dose: 100 mls/hr Insulin Aspart (Novolog Mix 70/30 (70/30 Units/Ml)) 12 units SC BID [facility] Last Admin: 11/01/18 18:05 Dose: 12 unit Insulin Human Regular (Novolin R) 0 unit SC ACHS [facility]; Protocol Last Admin: 11/02/18 08:23 Dose: 3 units Losartan Potassium (Cozaar) 50 mg PO DAILY [facility] Last Admin: 11/02/18 09:43 Dose: 50 mg Pantoprazole Sodium (Protonix Ec Tab) 20 mg PO DAILY [facility] Last Admin: 11/02/18 09:43 Dose: 20 mg - Labs Labs: 10/31/18 07:00 10/31/18 07:00 PT 13.8 SECONDS (9.7-12.2) H 10/23/18 13:15 INR 1.3 10/23/18 13:15 APTT 25 SECONDS (21-34) 10/23/18 13:15
--- NOTE | 2018-11-02 13:09 | CP.PCM.PN ---
Subjective - Date & Time of Evaluation Date of Evaluation: 11/02/18 Time of Evaluation: 13:00 - Subjective Subjective: No complaints biopsy of mass would be helpful to determine if this is related to infection or malignancy percutaneous approach for biopsy not possible as vertebral body is in the way Case discussed with ID and IR Objective - Vital Signs/Intake and Output Vital Signs (last 24 hours): Temp Pulse Resp BP Pulse Ox 98.2 F 71 20 155/87 H 100 11/02/18 08:00 11/02/18 08:00 11/02/18 08:00 11/02/18 08:00 11/02/18 08:00 - Medications Medications: Current Medications Acetaminophen (Tylenol 325mg Tab) 650 mg PO Q6 PRN PRN Reason: Fever >100.4 F Last Admin: 10/24/18 05:14 Dose: 650 mg Bismuth Subsalicylate (Pepto Bismol) 262 mg PO Q4H PRN PRN Reason: Diarrhea Clopidogrel Bisulfate (Plavix) 75 mg PO DAILY [facility] Last Admin: 11/02/18 09:43 Dose: 75 mg Dextrose (Glutose 15) 0 gm PO ONCE PRN; Protocol PRN Reason: Hypoglycemia Protocol Last Admin: 10/24/18 08:49 Dose: 15 gm Dextrose (Dextrose 50% Inj) 50 ml IV PRN PRN; Protocol PRN Reason: Hypoglycemia Protocol Glucagon (Glucagen Diagnostic Kit) 0 mg IM STAT PRN; Protocol PRN Reason: Hypoglycemia Protocol Ceftriaxone Sodium 1 gm/ (Sodium Chloride) 100 mls @ 100 mls/hr IVPB Q12H [facility]; Protocol Last Admin: 11/02/18 09:43 Dose: 100 mls/hr Insulin Aspart (Novolog Mix 70/30 (70/30 Units/Ml)) 12 units SC BID [facility] Last Admin: 11/02/18 09:50 Dose: 12 unit Insulin Human Regular (Novolin R) 0 unit SC ACHS [facility]; Protocol Last Admin: 11/02/18 12:30 Dose: 3 units Losartan Potassium (Cozaar) 50 mg PO DAILY [facility] Last Admin: 11/02/18 09:43 Dose: 50 mg Pantoprazole Sodium (Protonix Ec Tab) 20 mg PO DAILY [facility] Last Admin: 11/02/18 09:43 Dose: 20 mg - Labs Labs: 10/31/18 07:00 10/31/18 07:00 PT 13.8 SECONDS (9.7-12.2) H 10/23/18 13:15 INR 1.3 10/23/18 13:15 APTT 25 SECONDS (21-34) 10/23/18 13:15 - Head Exam Head Exam: ATRAUMATIC - Eye Exam Eye Exam: Normal appearance - ENT Exam ENT Exam: Mucous Membranes Dry - Respiratory Exam Respiratory Exam: NORMAL BREATHING PATTERN - Cardiovascular Exam Cardiovascular Exam: +S1, +S2 - GI/Abdominal Exam GI & Abdominal Exam: Normal Bowel Sounds Assessment and Plan (1) Abdominal mass Assessment & Plan: percutaneous biopsy not possible outpatient PET CT scan for further evaluation Status: Acute (2) Anemia Assessment & Plan: anemia of chronic disease Status: Acute
--- NOTE | 2018-11-02 14:10 | CP.PCM.PN ---
Subjective - Date & Time of Evaluation Date of Evaluation: 11/02/18 Time of Evaluation: 14:10 - Subjective Subjective: AFEBRILE, VSS EVENTS NOTED ! DR OREILLY HELP APPRECIATED ! BX NOT FEASIBLE INDICATED. WILL GET CERETAC SCAN INTRA-ABDOMINAL R/O OCCULT ABSCESS. CASE DISCUSSED W PROGRAMS DIRECTOR MS MERAZ . LABS REVIEWED; QUANTIFERON TB TEST -VE ALL DIARRHOEA W/U -VE. PLAN; DC ISOLATION. CERETAC SCAN IN PROGRESS. F/U SOLA W CARDIOLOGY. CONTINUE IV ABX. Objective - Vital Signs/Intake and Output Vital Signs (last 24 hours): Temp Pulse Resp BP Pulse Ox 98.2 F 71 20 155/87 H 100 11/02/18 08:00 11/02/18 08:00 11/02/18 08:00 11/02/18 08:00 11/02/18 08:00 - Medications Medications: Current Medications Acetaminophen (Tylenol 325mg Tab) 650 mg PO Q6 PRN PRN Reason: Fever >100.4 F Last Admin: 10/24/18 05:14 Dose: 650 mg Bismuth Subsalicylate (Pepto Bismol) 262 mg PO Q4H PRN PRN Reason: Diarrhea Clopidogrel Bisulfate (Plavix) 75 mg PO DAILY [facility] Last Admin: 11/02/18 09:43 Dose: 75 mg Dextrose (Glutose 15) 0 gm PO ONCE PRN; Protocol PRN Reason: Hypoglycemia Protocol Last Admin: 10/24/18 08:49 Dose: 15 gm Dextrose (Dextrose 50% Inj) 50 ml IV PRN PRN; Protocol PRN Reason: Hypoglycemia Protocol Glucagon (Glucagen Diagnostic Kit) 0 mg IM STAT PRN; Protocol PRN Reason: Hypoglycemia Protocol Ceftriaxone Sodium 1 gm/ (Sodium Chloride) 100 mls @ 100 mls/hr IVPB Q12H [facility]; Protocol Last Admin: 11/02/18 09:43 Dose: 100 mls/hr Insulin Aspart (Novolog Mix 70/30 (70/30 Units/Ml)) 12 units SC BID [facility] Last Admin: 11/02/18 09:50 Dose: 12 unit Insulin Human Regular (Novolin R) 0 unit SC ACHS [facility]; Protocol Last Admin: 11/02/18 12:30 Dose: 3 units Losartan Potassium (Cozaar) 50 mg PO DAILY [facility] Last Admin: 11/02/18 09:43 Dose: 50 mg Pantoprazole Sodium (Protonix Ec Tab) 20 mg PO DAILY [facility] Last Admin: 11/02/18 09:43 Dose: 20 mg - Labs Labs: 10/31/18 07:00 10/31/18 07:00 PT 13.8 SECONDS (9.7-12.2) H 10/23/18 13:15 INR 1.3 10/23/18 13:15 APTT 25 SECONDS (21-34) 10/23/18 13:15 - Constitutional Appears: No Acute Distress, Cachectic, Chronically Ill - Head Exam Head Exam: NORMOCEPHALIC - Eye Exam Eye Exam: EOMI, PERRL - ENT Exam ENT Exam: Mucous Membranes Moist, Normal Oropharynx - Respiratory Exam Respiratory Exam: Clear to Ausculation Bilateral, NORMAL BREATHING PATTERN - Cardiovascular Exam Cardiovascular Exam: REGULAR RHYTHM, +S1, +S2 - GI/Abdominal Exam GI & Abdominal Exam: Soft, Normal Bowel Sounds. absent: Tenderness, Mass - Extremities Exam Extremities Exam: Normal Capillary Refill. absent: Calf Tenderness, Pedal Edema - Neurological Exam Neurological Exam: Alert, Awake, CN II-XII Intact, Normal Gait, Oriented x3, Reflexes Normal - Psychiatric Exam Psychiatric exam: Normal Mood - Skin Skin Exam: Normal Color, Warm Assessment and Plan (1) Gram negative sepsis Status: Acute (2) Gram positive sepsis Status: Acute (3) Sepsis Status: Acute (4) Abdominal pain Status: Acute (5) Abdominal mass Status: Acute (6) Hx of splenectomy Status: Acute (7) Diabetes Status: Acute (8) HTN (hypertension) Status: Acute - Assessment and Plan (Free Text) Plan: PLAN; CASE DISCUSSED IN DETAIL WITH [facility]AM-ONC. W/U ORDERED. CONTINUE IV ROCEPHIN 1GM IVPB [id number]. F/U SOLA. CERETAC SCAN R/O ABSCESS SOLA IN PROGRESS . DC CONTACT/[facility] PRECAUTIONS. PER CONSULTANTS
--- NOTE | 2018-11-02 20:18 | PN ---
DATE: 11/02/2018 LOCATION: [address], Bed B. SUBJECTIVE: This is a 52-year-old male seen and examined in rounds without significant clinical changes reported. Active bleeding seen today by the Oncology-Hematology on consult. Case discussed with placed at length. The entire chart is reviewed including but not limited to most recent lab results and today's lab results showed blood glucose level of 255. Rest of the lab results still pending. The patient still has poor oral intake in general. No reported active bleeding but reported abdominal mass lesion, difficult to be biopsied; however, laparoscopy biosurgical reimbursement consultant with biopsy should be discussed with the patient. PHYSICAL EXAMINATION: GENERAL: A 52-year-old male, afebrile with pulse of 82, respiratory rate 20 to 22, blood pressure 136/80. HEENT: Showed pale, dry oral mucoid membrane. Nonicteric sclerae. LUNGS: Few scattered crepitation. Decreased air entry at bases. HEART: Positive S1 and S2. ABDOMEN: Soft with mild generalized tenderness. No mass or organomegaly. No rebound tenderness or guarding. IMPRESSION: 1. Acute pancreatitis on top of chronic pancreatitis. 2. Poorly controlled diabetes mellitus with hypertension. 3. Abnormal MRI with abdominal mass lesion. 4. Anemia most likely secondary to above. 5. Reported history of splenomegaly. 6. Septicemia with gram-positive and gram-negative cocci of unclear etiology. SUGGESTIONS: 1. Continue current management. 2. Antireflux measure. 3. Surgical consultation for possible laparoscopy with biopsy if possible. Further recommendations to follow. Paramjit Ramos MD
--- NOTE | 2018-11-02 21:41 | CP.PCM.PN ---
Subjective - Date & Time of Evaluation Date of Evaluation: 11/02/18 Time of Evaluation: 08:20 - Subjective Subjective: dictated Objective - Vital Signs/Intake and Output Vital Signs (last 24 hours): Temp Pulse Resp BP Pulse Ox 98.9 F 87 18 153/84 H 100 11/02/18 15:50 11/02/18 15:50 11/02/18 15:50 11/02/18 15:50 11/02/18 15:50 - Medications Medications: Current Medications Acetaminophen (Tylenol 325mg Tab) 650 mg PO Q6 PRN PRN Reason: Fever >100.4 F Last Admin: 10/24/18 05:14 Dose: 650 mg Bismuth Subsalicylate (Pepto Bismol) 262 mg PO Q4H PRN PRN Reason: Diarrhea Clopidogrel Bisulfate (Plavix) 75 mg PO DAILY [facility] Last Admin: 11/02/18 09:43 Dose: 75 mg Dextrose (Glutose 15) 0 gm PO ONCE PRN; Protocol PRN Reason: Hypoglycemia Protocol Last Admin: 10/24/18 08:49 Dose: 15 gm Dextrose (Dextrose 50% Inj) 50 ml IV PRN PRN; Protocol PRN Reason: Hypoglycemia Protocol Glucagon (Glucagen Diagnostic Kit) 0 mg IM STAT PRN; Protocol PRN Reason: Hypoglycemia Protocol Ceftriaxone Sodium 1 gm/ (Sodium Chloride) 100 mls @ 100 mls/hr IVPB Q12H [facility]; Protocol Last Admin: 11/02/18 21:29 Dose: 100 mls/hr Insulin Aspart (Novolog Mix 70/30 (70/30 Units/Ml)) 12 units SC BID [facility] Last Admin: 11/02/18 17:30 Dose: 12 unit Insulin Human Regular (Novolin R) 0 unit SC ACHS [facility]; Protocol Last Admin: 11/02/18 21:27 Dose: Not Given Losartan Potassium (Cozaar) 50 mg PO DAILY [facility] Last Admin: 11/02/18 09:43 Dose: 50 mg Pantoprazole Sodium (Protonix Ec Tab) 20 mg PO DAILY [facility] Last Admin: 11/02/18 09:43 Dose: 20 mg - Labs Labs: 10/31/18 07:00 10/31/18 07:00 PT 13.8 SECONDS (9.7-12.2) H 10/23/18 13:15 INR 1.3 10/23/18 13:15 APTT 25 SECONDS (21-34) 10/23/18 13:15
[2018-11-03 06:40] LABS: BASO # 0.1 K/uL (0.0-0.2); BASO % 1.3 % (0.0-2.0); EOS # 0.2 K/uL (0.0-0.7); EOS % 2.3 % (0.0-4.0); HEMOGLOBIN 10.7 g/dL (12.0-18.0); LYMPH # 2.6 K/uL (1.0-4.3); LYMPH % 34.1 % (20.0-40.0); MEAN CORPUSCULAR HEMOGLOBIN 31.6 pg (27.0-31.0); MEAN PLATELET VOLUME 10.6 fL (7.2-11.7); MONO # 0.9 K/uL (0.0-0.8); MONO % 12.2 % (0.0-10.0); NEUT # 3.8 K/uL (1.8-7.0); NEUT % 50.1 % (50.0-75.0); NRBC % 0.5 % (0.0-2.0); RBC 3.39 Mil/uL (4.40-5.90); RED CELL DISTRIBUTION WIDTH 13.5 % (11.5-14.5); WHITE BLOOD COUNT 7.5 K/uL (4.8-10.8)
[2018-11-03 06:45] LABS: BLOOD UREA NITROGEN 6 mg/dL (9-20); CALCIUM 8.1 mg/dl (8.6-10.4); GFR NON-AFRICAN AMERICAN > 60
[2018-11-03] MEDS: (Novolin R) Insulin Human Regular 100 units/ml vial SC SCH ×4 (07:46→21:59)
[2018-11-03] MEDS: Pantoprazole 20 mg EC Tab PO SCH (10:19)
[2018-11-03] MEDS: LIPASE/PROTEASE/AMYLASE 4,200 U ECC PO SCH ×3 (10:19→17:18)
[2018-11-03] MEDS: (Novolog Mix 70/30) Insulin Aspart/Insulin Aspar 100 units/ml SC SCH ×2 (10:19→17:19)
[2018-11-03] MEDS ORDERED: Lidocaine 4% (Laryng-O-Jet) Kit MM ONE ×2 (10:28→10:30)
[2018-11-03] MEDS ORDERED: Midazolam 2 MG/2 ML VIAL ONE (11:10)
[2018-11-03] MEDS ORDERED: Propofol 10 mg/ml Inj (20 ML) ONE (11:10)
--- NOTE | 2018-11-03 11:48 | CP.PCM.PN ---
Subjective - Date & Time of Evaluation Date of Evaluation: 11/03/18 Time of Evaluation: 11:48 - Subjective Subjective: Patient s/p SOLA No evidence of Endocarditis. Full report to follow Objective - Vital Signs/Intake and Output Vital Signs (last 24 hours): Temp Pulse Resp BP Pulse Ox 98.0 F 74 20 161/86 H 100 11/03/18 07:10 11/03/18 07:10 11/03/18 07:10 11/03/18 07:10 11/03/18 07:10 Intake and Output: 11/03/18 11/03/18 06:59 18:59 Intake Total 350 Balance 350 - Medications Medications: Current Medications Acetaminophen (Tylenol 325mg Tab) 650 mg PO Q6 PRN PRN Reason: Fever >100.4 F Last Admin: 10/24/18 05:14 Dose: 650 mg Bismuth Subsalicylate (Pepto Bismol) 262 mg PO Q4H PRN PRN Reason: Diarrhea Clopidogrel Bisulfate (Plavix) 75 mg PO DAILY [facility] Last Admin: 11/02/18 09:43 Dose: 75 mg Dextrose (Glutose 15) 0 gm PO ONCE PRN; Protocol PRN Reason: Hypoglycemia Protocol Last Admin: 10/24/18 08:49 Dose: 15 gm Dextrose (Dextrose 50% Inj) 50 ml IV PRN PRN; Protocol PRN Reason: Hypoglycemia Protocol Glucagon (Glucagen Diagnostic Kit) 0 mg IM STAT PRN; Protocol PRN Reason: Hypoglycemia Protocol Ceftriaxone Sodium 1 gm/ (Sodium Chloride) 100 mls @ 100 mls/hr IVPB Q12H [facility]; Protocol Last Admin: 11/03/18 10:19 Dose: Not Given Insulin Aspart (Novolog Mix 70/30 (70/30 Units/Ml)) 12 units SC BID [facility] Last Admin: 11/03/18 10:19 Dose: Not Given Insulin Human Regular (Novolin R) 0 unit SC ACHS [facility]; Protocol Last Admin: 11/03/18 07:46 Dose: 4 units Losartan Potassium (Cozaar) 50 mg PO DAILY [facility] Last Admin: 11/03/18 10:18 Dose: Not Given Pantoprazole Sodium (Protonix Ec Tab) 20 mg PO DAILY [facility] Last Admin: 11/03/18 10:19 Dose: Not Given - Labs Labs: 11/03/18 06:20 11/03/18 06:20 PT 13.8 SECONDS (9.7-12.2) H 10/23/18 13:15 INR 1.3 10/23/18 13:15 APTT 25 SECONDS (21-34) 10/23/18 13:15
--- NOTE | 2018-11-03 19:53 | CP.PCM.PN ---
Subjective - Date & Time of Evaluation Date of Evaluation: 11/03/18 Time of Evaluation: 19:00 - Subjective Subjective: s/p WBC scan and SOLA Objective - Vital Signs/Intake and Output Vital Signs (last 24 hours): Temp Pulse Resp BP Pulse Ox 98.5 F 73 18 157/84 H 99 11/03/18 18:44 11/03/18 18:44 11/03/18 18:44 11/03/18 18:44 11/03/18 18:44 - Medications Medications: Current Medications Acetaminophen (Tylenol 325mg Tab) 650 mg PO Q6 PRN PRN Reason: Fever >100.4 F Last Admin: 10/24/18 05:14 Dose: 650 mg Bismuth Subsalicylate (Pepto Bismol) 262 mg PO Q4H PRN PRN Reason: Diarrhea Clopidogrel Bisulfate (Plavix) 75 mg PO DAILY [facility] Last Admin: 11/02/18 09:43 Dose: 75 mg Dextrose (Glutose 15) 0 gm PO ONCE PRN; Protocol PRN Reason: Hypoglycemia Protocol Last Admin: 10/24/18 08:49 Dose: 15 gm Dextrose (Dextrose 50% Inj) 50 ml IV PRN PRN; Protocol PRN Reason: Hypoglycemia Protocol Glucagon (Glucagen Diagnostic Kit) 0 mg IM STAT PRN; Protocol PRN Reason: Hypoglycemia Protocol Ceftriaxone Sodium 1 gm/ (Sodium Chloride) 100 mls @ 100 mls/hr IVPB Q12H [facility]; Protocol Last Admin: 11/03/18 13:06 Dose: 100 mls/hr Insulin Aspart (Novolog Mix 70/30 (70/30 Units/Ml)) 12 units SC BID [facility] Last Admin: 11/03/18 17:19 Dose: 12 unit Insulin Human Regular (Novolin R) 0 unit SC ACHS [facility]; Protocol Last Admin: 11/03/18 17:19 Dose: 10 units Losartan Potassium (Cozaar) 50 mg PO DAILY [facility] Last Admin: 11/03/18 10:18 Dose: Not Given Pantoprazole Sodium (Protonix Ec Tab) 20 mg PO DAILY [facility] Last Admin: 11/03/18 10:19 Dose: Not Given - Labs Labs: 11/03/18 06:20 11/03/18 06:20 PT 13.8 SECONDS (9.7-12.2) H 10/23/18 13:15 INR 1.3 10/23/18 13:15 APTT 25 SECONDS (21-34) 10/23/18 13:15 - Head Exam Head Exam: ATRAUMATIC - Eye Exam Eye Exam: Normal appearance - ENT Exam ENT Exam: Mucous Membranes Dry - Respiratory Exam Respiratory Exam: NORMAL BREATHING PATTERN - Cardiovascular Exam Cardiovascular Exam: +S1, +S2 - GI/Abdominal Exam GI & Abdominal Exam: Normal Bowel Sounds Assessment and Plan (1) Abdominal mass Assessment & Plan: ? lymphadenopathy unable to biopsy due to location as reviewed by IR f/u WBC scan outpatient PET CT Status: Acute (2) Anemia Assessment & Plan: chronic disease Status: Acute
--- NOTE | 2018-11-03 20:03 | CP.PCM.PN ---
Subjective - Date & Time of Evaluation Date of Evaluation: 11/03/18 Time of Evaluation: 20:03 - Subjective Subjective: S/P SOLA / CERETAC SCAN. NO NEW COMPLAINTS Objective - Vital Signs/Intake and Output Vital Signs (last 24 hours): Temp Pulse Resp BP Pulse Ox 98.5 F 73 18 157/84 H 99 11/03/18 18:44 11/03/18 18:44 11/03/18 18:44 11/03/18 18:44 11/03/18 18:44 - Medications Medications: Current Medications Acetaminophen (Tylenol 325mg Tab) 650 mg PO Q6 PRN PRN Reason: Fever >100.4 F Last Admin: 10/24/18 05:14 Dose: 650 mg Bismuth Subsalicylate (Pepto Bismol) 262 mg PO Q4H PRN PRN Reason: Diarrhea Clopidogrel Bisulfate (Plavix) 75 mg PO DAILY [facility] Last Admin: 11/02/18 09:43 Dose: 75 mg Dextrose (Glutose 15) 0 gm PO ONCE PRN; Protocol PRN Reason: Hypoglycemia Protocol Last Admin: 10/24/18 08:49 Dose: 15 gm Dextrose (Dextrose 50% Inj) 50 ml IV PRN PRN; Protocol PRN Reason: Hypoglycemia Protocol Glucagon (Glucagen Diagnostic Kit) 0 mg IM STAT PRN; Protocol PRN Reason: Hypoglycemia Protocol Ceftriaxone Sodium 1 gm/ (Sodium Chloride) 100 mls @ 100 mls/hr IVPB Q12H [facility]; Protocol Last Admin: 11/03/18 13:06 Dose: 100 mls/hr Insulin Aspart (Novolog Mix 70/30 (70/30 Units/Ml)) 12 units SC BID [facility] Last Admin: 11/03/18 17:19 Dose: 12 unit Insulin Human Regular (Novolin R) 0 unit SC ACHS [facility]; Protocol Last Admin: 11/03/18 17:19 Dose: 10 units Losartan Potassium (Cozaar) 50 mg PO DAILY [facility] Last Admin: 11/03/18 10:18 Dose: Not Given Pantoprazole Sodium (Protonix Ec Tab) 20 mg PO DAILY [facility] Last Admin: 11/03/18 10:19 Dose: Not Given - Labs Labs: 11/03/18 06:20 11/03/18 06:20 PT 13.8 SECONDS (9.7-12.2) H 10/23/18 13:15 INR 1.3 10/23/18 13:15 APTT 25 SECONDS (21-34) 10/23/18 13:15 - Constitutional Appears: No Acute Distress, Cachectic, Chronically Ill - Eye Exam Eye Exam: EOMI, PERRL - ENT Exam ENT Exam: Normal Oropharynx - Neck Exam Neck Exam: Normal Inspection - Respiratory Exam Respiratory Exam: Clear to Ausculation Bilateral - Cardiovascular Exam Cardiovascular Exam: REGULAR RHYTHM, +S1, +S2 - GI/Abdominal Exam GI & Abdominal Exam: Soft, Normal Bowel Sounds. absent: Tenderness, Mass - Neurological Exam Neurological Exam: Alert, Awake, CN II-XII Intact, Oriented x3, Reflexes Normal - Psychiatric Exam Psychiatric exam: Normal Mood - Skin Skin Exam: Normal Color, Warm Assessment and Plan (1) Gram negative sepsis Status: Acute (2) Gram positive sepsis Status: Acute (3) Sepsis Status: Acute (4) Abdominal pain Status: Acute (5) Abdominal mass Status: Acute (6) Hx of splenectomy Status: Acute (7) Diabetes Status: Acute (8) HTN (hypertension) Status: Acute - Assessment and Plan (Free Text) Plan: CONTINUE IV ROCEPHIN 1GM IVPB [id number]. F/U [facility] OFFICIAL REPORT CERETAC SCAN R/O ABSCESS-P. CASE DISCUSSED WITH PMD
--- NOTE | 2018-11-03 21:16 | CP.PCM.PN ---
Subjective - Date & Time of Evaluation Date of Evaluation: 11/03/18 Time of Evaluation: 07:40 - Subjective Subjective: dictated Objective - Vital Signs/Intake and Output Vital Signs (last 24 hours): Temp Pulse Resp BP Pulse Ox 98.5 F 73 18 157/84 H 99 11/03/18 18:44 11/03/18 18:44 11/03/18 18:44 11/03/18 18:44 11/03/18 18:44 - Medications Medications: Current Medications Acetaminophen (Tylenol 325mg Tab) 650 mg PO Q6 PRN PRN Reason: Fever >100.4 F Last Admin: 10/24/18 05:14 Dose: 650 mg Bismuth Subsalicylate (Pepto Bismol) 262 mg PO Q4H PRN PRN Reason: Diarrhea Clopidogrel Bisulfate (Plavix) 75 mg PO DAILY [facility] Last Admin: 11/02/18 09:43 Dose: 75 mg Dextrose (Glutose 15) 0 gm PO ONCE PRN; Protocol PRN Reason: Hypoglycemia Protocol Last Admin: 10/24/18 08:49 Dose: 15 gm Dextrose (Dextrose 50% Inj) 50 ml IV PRN PRN; Protocol PRN Reason: Hypoglycemia Protocol Glucagon (Glucagen Diagnostic Kit) 0 mg IM STAT PRN; Protocol PRN Reason: Hypoglycemia Protocol Ceftriaxone Sodium 1 gm/ (Sodium Chloride) 100 mls @ 100 mls/hr IVPB Q12H [facility]; Protocol Last Admin: 11/03/18 20:31 Dose: 100 mls/hr Insulin Aspart (Novolog Mix 70/30 (70/30 Units/Ml)) 12 units SC BID [facility] Last Admin: 11/03/18 17:19 Dose: 12 unit Insulin Human Regular (Novolin R) 0 unit SC ACHS [facility]; Protocol Last Admin: 11/03/18 17:19 Dose: 10 units Losartan Potassium (Cozaar) 50 mg PO DAILY [facility] Last Admin: 11/03/18 10:18 Dose: Not Given Pantoprazole Sodium (Protonix Ec Tab) 20 mg PO DAILY [facility] Last Admin: 11/03/18 10:19 Dose: Not Given - Labs Labs: 11/03/18 06:20 11/03/18 06:20 PT 13.8 SECONDS (9.7-12.2) H 10/23/18 13:15 INR 1.3 10/23/18 13:15 APTT 25 SECONDS (21-34) 10/23/18 13:15
--- NOTE | 2018-11-03 22:22 | PN ---
DATE: 11/03/2018 LOCATION: 667, bed B. SUBJECTIVE: This is a 52-year-old male seen and examined in rounds without significant clinical changes or reported active bleeding, but generalized weakness and malaise. The entire chart is reviewed including today's lab results with hemoglobin 10.7, hematocrit 31.5 with low BUN and creatinine, but blood glucose level of 221 with low calcium of 8.1. Stool for occult blood was reported to be negative. The patient had white blood cell nuclear scan, report is still pending. PHYSICAL EXAMINATION: GENERAL: A 52-year-old male. VITAL SIGNS: Afebrile with pulse of 70, respiratory 20 to 22, blood pressure of 172/86. HEENT: Showed pale dry oral mucoid membrane. Nonicteric sclerae. LUNGS: A few scattered crepitation. Decreased air entry at bases. HEART: Positive S1 and S2. ABDOMEN: Soft. Bowel sounds are present. No mass or organomegaly. No rebound tenderness or guarding. EXTREMITIES: Without significant clubbing, cyanosis or edema. NEUROLOGIC: No reported new neurological deficit, sensory or motor. IMPRESSION: 1. Acute on top of chronic pancreatitis. 2. Poorly controlled hypertension, poorly controlled diabetes mellitus. 3. Abnormal MRI with abdominal mass lesion as reported. 4. Reported history of splenomegaly. 5. Septicemia, on antibiotics. 6. Anemia, most likely secondary to above. SUGGESTIONS: 1. Agree with your plan. 2. Laparoscopy for potential biopsy of the abdominal mass by the surgical team. 3. Repeat serum lipase, amylase level. 4. Further recommendation to follow. Paramjit Ramos MD
[2018-11-04 01:44] VITALS: RESP 20
--- NOTE | 2018-11-04 06:29 | CP.PCM.PN ---
Subjective - Date & Time of Evaluation Date of Evaluation: 11/02/18 Time of Evaluation: 17:30 - Subjective Subjective: Patient seen and evaluated Denies chest pain and dyspnea Blood cultures positive TB ruled out For SOLA tomorrow Physical Exam - Constitutional Appears: Well - Head Exam Head Exam: ATRAUMATIC, NORMAL INSPECTION - Eye Exam Eye Exam: EOMI, Normal appearance - Neck Exam Neck exam: Positive for: Normal Inspection - GI/Abdominal Exam GI & Abdominal Exam: Normal Bowel Sounds, Soft. absent: Distended, Firm, Guarding - Neurological Exam Neurological exam: Alert, Oriented x3 - Psychiatric Exam Psychiatric exam: Normal Affect, Normal Mood - Skin Skin Exam: Dry, Intact, Normal Color, Warm Assessment & Plan - Assessment and Plan (Free Text) Assessment: 52 y/o m with PMHx of DM presented to the ED and admitted on 10/23 s/p syncope per chart review. GI being consulted for diarrhea. bacteremia and s/p sepsis -10/23: e-coli in blood culture -patient still with leukocytosis 18.6, on abx --vanc 1g q12h, 10/24 to 10/29 --cefepime 1g q8h started 10/24 --flagyl 500 mg q8h 10/26-11/02 -ID Dr. Stewart consulted, appreciate recs Abdominal mass -pending official report of abdominal MRI -CTAP: 3.4 cm mass displacing abdominal aorta to the left -concern for malignancy. CEA 6.9H and CA 19-9 at 41.6H. pancytopenia -[facility] onc consulted, Dr. Menenedz, appreciate recs Near Normal EF PFO with left to right shunt Recommend medical mgt with ASA 81 daily SOLA tomorrow Objective - Vital Signs/Intake and Output Vital Signs (last 24 hours): Temp Pulse Resp BP Pulse Ox 98.7 F 97 H 20 139/77 98 11/03/18 23:45 11/03/18 23:45 11/03/18 23:45 11/03/18 23:45 11/03/18 23:45 Intake and Output: 11/03/18 11/04/18 18:59 06:59 Intake Total 650 Balance 650 - Medications Medications: Current Medications Acetaminophen (Tylenol 325mg Tab) 650 mg PO Q6 PRN PRN Reason: Fever >100.4 F Last Admin: 10/24/18 05:14 Dose: 650 mg Bismuth Subsalicylate (Pepto Bismol) 262 mg PO Q4H PRN PRN Reason: Diarrhea Clopidogrel Bisulfate (Plavix) 75 mg PO DAILY [facility] Last Admin: 11/02/18 09:43 Dose: 75 mg Dextrose (Glutose 15) 0 gm PO ONCE PRN; Protocol PRN Reason: Hypoglycemia Protocol Last Admin: 10/24/18 08:49 Dose: 15 gm Dextrose (Dextrose 50% Inj) 50 ml IV PRN PRN; Protocol PRN Reason: Hypoglycemia Protocol Glucagon (Glucagen Diagnostic Kit) 0 mg IM STAT PRN; Protocol PRN Reason: Hypoglycemia Protocol Ceftriaxone Sodium 1 gm/ (Sodium Chloride) 100 mls @ 100 mls/hr IVPB Q12H [facility]; Protocol Last Admin: 11/03/18 20:31 Dose: 100 mls/hr Insulin Aspart (Novolog Mix 70/30 (70/30 Units/Ml)) 12 units SC BID [facility] Last Admin: 11/03/18 17:19 Dose: 12 unit Insulin Human Regular (Novolin R) 0 unit SC ACHS [facility]; Protocol Last Admin: 11/03/18 21:59 Dose: 4 units Losartan Potassium (Cozaar) 50 mg PO DAILY [facility] Last Admin: 11/03/18 10:18 Dose: Not Given Pantoprazole Sodium (Protonix Ec Tab) 20 mg PO DAILY [facility] Last Admin: 11/03/18 10:19 Dose: Not Given - Labs Labs: 11/03/18 06:20 11/03/18 06:20 PT 13.8 SECONDS (9.7-12.2) H 10/23/18 13:15 INR 1.3 10/23/18 13:15 APTT 25 SECONDS (21-34) 10/23/18 13:15
[2018-11-04] MEDS: LIPASE/PROTEASE/AMYLASE 4,200 U ECC PO SCH ×3 (08:16→17:58)
[2018-11-04] MEDS: (Novolin R) Insulin Human Regular 100 units/ml vial SC SCH ×4 (08:16→22:11)
[2018-11-04] MEDS: (Novolog Mix 70/30) Insulin Aspart/Insulin Aspar 100 units/ml SC SCH ×2 (10:27→17:59)
[2018-11-04] MEDS: Pantoprazole 20 mg EC Tab PO SCH (10:27)
--- NOTE | 2018-11-04 11:08 | NM ---
Date of service: 11/03/2018 PROCEDURE: Ceretec labeled white blood cell study HISTORY: r/o abcess cystic collection intra abdominal Relevant surgical history: Prior splenectomy. COMPARISON: 10/26/2018 MRI abdomen. Summary of findings on the comparison examination: Hypointense nonenhancing cystic structure measuring 2.5 x 4.8 x 4.5 cm displacing the abdominal aorta. Necrotic adenopathy not excluded. 10/23/2018 CT thorax abdomen and pelvis. 3.4 cm cystic mass 12/14/2012 Ceretec labeled white blood cell study. TECHNIQUE: Study performed per institutional protocol following the intravenous administration of 13.8 mCi technetium 99 M Ceretec labeled white blood cell studies. Imaging performed at 2 and 24 hr. FINDINGS: No Ceretec avid structures identified neck, thorax, abdomen, retroperitoneum or pelvis. Expected uptake in the liver. Status post splenectomy. Expected uptake in the alimentary tract. IMPRESSION: Negative study for abscess/inflammatory process. Particular attention directed to the abdomen/retroperitoneum adjacent to the great vessels.
--- NOTE | 2018-11-04 12:21 | CP.PCM.CON ---
<BollingerChelo - Last Filed: 11/04/18 12:41> History of Present Illness - History of Present Illness History of Present Illness: HEPATOBILIARY SURGERY CONSULT NOTE FOR DR. SHANE 52 yo M with PMHx of HTN, DM, DVT, etoh abuse presented to the ED on 10/23 with abdominal pain and syncope. The patient had diffuse abdominal pain associated with nausea a few days prior to syncopal episode. He was found to have bacteremia with blood cx = E. coli, Strep viridans. He had a CT which showed 3.4 cm mass displacing aorta to the left. He also had an abdominal MRI which showed encapsulating cystic collection/mass displacing abdominal aorta as well as sub cm retroperitoneal adenopathy, course pancreatic calcifications, intrahepatic biliary ductal dilation, upper abdomen varices. Had SOAL on 11/03 which did not show evidence for endocarditis. EF 35-40%. PFO. Dr. Menendez is following and recommends outpatient PET CT and if positive to biopsy the mass. Patient denies weight loss. Pt states that he is tolerating diet, denies any abdominal pain. He is ambulating. Inpatient workup: negative hep panel, TB negative, HIV negative, CEA 6.9, Ca 19- 9 41.6. PMHx: HTN, DM, DVT Surgeries: splenectomy, IVC filter, thoracentesis Allergies: aspirin Social history: 1 PPD x35 years, etoh abuse, drinks 24 beers a day (quit 2 months ago), denies illicit drug use Past Patient History - Infectious Disease Hx of Infectious Diseases: None - Past Medical History & Family History Past Medical History?: Yes - Past Social History Smoking Status: Heavy Smoker > 10 Cigarettes Daily Alcohol: > 2 Drinks/Day Drugs: Denies Home Situation {Lives}: With Family - CARDIAC Hx Cardiac Disorders: Yes Hx Hypertension: Yes - PULMONARY Hx Respiratory Disorders: No - NEUROLOGICAL Hx Neurological Disorder: Yes Hx Syncope: Yes - HEENT Hx HEENT Problems: No - RENAL Hx Chronic Kidney Disease: No - ENDOCRINE/METABOLIC Hx Endocrine Disorders: Yes Hx Diabetes Mellitus Type 1: Yes - HEMATOLOGICAL/ONCOLOGICAL Hx Blood Disorders: No - INTEGUMENTARY Hx Dermatological Problems: No - MUSCULOSKELETAL/RHEUMATOLOGICAL Hx Musculoskeletal Disorders: No - GASTROINTESTINAL Hx Gastrointestinal Disorders: No - GENITOURINARY/GYNECOLOGICAL Hx Genitourinary Disorders: No - PSYCHIATRIC Hx Psychophysiologic Disorder: No Hx Substance Use: No - SURGICAL HISTORY Hx Surgeries: Yes Hx Splenectomy: Yes () Hx Vascular Surgery: Yes Other/Comment: as per pt,"spleen sx, lungs, and filter to R groin for DVT" - ANESTHESIA Hx Anesthesia: No Hx Anesthesia Reactions: No Hx Malignant Hyperthermia: No Has any member of the family had a problem w/ anesthesia?: No Meds Allergies/Adverse Reactions: Allergies Allergy/AdvReac Type Severity Reaction Status Date / Time aspirin Allergy Verified 10/23/18 12:58 - Medications Medications: Current Medications Acetaminophen (Tylenol 325mg Tab) 650 mg PO Q6 PRN PRN Reason: Fever >100.4 F Last Admin: 10/24/18 05:14 Dose: 650 mg Bismuth Subsalicylate (Pepto Bismol) 262 mg PO Q4H PRN PRN Reason: Diarrhea Clopidogrel Bisulfate (Plavix) 75 mg PO DAILY [facility] Last Admin: 11/02/18 09:43 Dose: 75 mg Dextrose (Glutose 15) 0 gm PO ONCE PRN; Protocol PRN Reason: Hypoglycemia Protocol Last Admin: 10/24/18 08:49 Dose: 15 gm Dextrose (Dextrose 50% Inj) 50 ml IV PRN PRN; Protocol PRN Reason: Hypoglycemia Protocol Glucagon (Glucagen Diagnostic Kit) 0 mg IM STAT PRN; Protocol PRN Reason: Hypoglycemia Protocol Ceftriaxone Sodium 1 gm/ (Sodium Chloride) 100 mls @ 100 mls/hr IVPB Q12H [facility]; Protocol Last Admin: 11/04/18 08:15 Dose: 100 mls/hr Insulin Aspart (Novolog Mix 70/30 (70/30 Units/Ml)) 16 units SC BID [facility] Last Admin: 11/04/18 10:27 Dose: 16 u Insulin Human Regular (Novolin R) 0 unit SC ACHS [facility]; Protocol Last Admin: 11/04/18 08:16 Dose: 4 units Losartan Potassium (Cozaar) 50 mg PO DAILY [facility] Last Admin: 11/04/18 10:27 Dose: 50 mg Pantoprazole Sodium (Protonix Ec Tab) 20 mg PO DAILY [facility] Last Admin: 11/04/18 10:27 Dose: 20 mg Physical Exam - Constitutional Appears: Well, Non-toxic, No Acute Distress - Head Exam Head Exam: ATRAUMATIC, NORMAL INSPECTION - Eye Exam Eye Exam: EOMI, Normal appearance - Respiratory Exam Respiratory Exam: Decreased Breath Sounds, NORMAL BREATHING PATTERN. absent: Respiratory Distress - Cardiovascular Exam Cardiovascular Exam: +S1, +S2 - GI/Abdominal Exam GI & Abdominal Exam: Soft. absent: Distended, Firm, Guarding, Rebound, Rigid, Tenderness Additional comments: well healed midline incision - Neurological Exam Neurological exam: Alert, CN II-XII Intact, Oriented x3 - Psychiatric Exam Psychiatric exam: Normal Affect, Normal Mood - Skin Skin Exam: Dry, Normal Color, Warm Results - Vital Signs Recent Vital Signs: Last Vital Signs Temp 98.2 F 11/04/18 07:00 Pulse 76 11/04/18 07:00 Resp 20 11/04/18 07:00 BP 163/83 H 11/04/18 07:00 Pulse Ox 100 11/04/18 07:00 - Labs Result Diagrams: 11/03/18 06:20 11/03/18 06:20 Labs: Laboratory Results - last 24 hr 11/02/18 11/02/18 11/03/18 16:16 20:56 06:31 POC Glucose (mg/dL) 248 H 190 H 254 H 11/03/18 11/03/18 11/04/18 16:22 21:13 02:00 POC Glucose (mg/dL) 476 H* 472 H* 262 H 11/04/18 06:43 POC Glucose (mg/dL) 282 H Assessment & Plan - Assessment and Plan (Free Text) Assessment: 52 yo M with PMHx of HTN, DM, DVT, etoh abuse with intra-abdominal collection, liquid containing structure consistent w/ cyst. Given pts prior hx of pancreatitis, consistent with possible prior pseudocyst or liquified fat. No evidence of wall enhancement or abscess. - No acute surgical intervention necessary - FU outpatient PRN - Discussed plan with Dr. Ashleigh Byrne PGY-4 <Escobar Shane - Last Filed: 11/04/18 13:08> Meds - Medications Medications: Current Medications Acetaminophen (Tylenol 325mg Tab) 650 mg PO Q6 PRN PRN Reason: Fever >100.4 F Last Admin: 10/24/18 05:14 Dose: 650 mg Bismuth Subsalicylate (Pepto Bismol) 262 mg PO Q4H PRN PRN Reason: Diarrhea Clopidogrel Bisulfate (Plavix) 75 mg PO DAILY [facility] Last Admin: 11/02/18 09:43 Dose: 75 mg Dextrose (Glutose 15) 0 gm PO ONCE PRN; Protocol PRN Reason: Hypoglycemia Protocol Last Admin: 10/24/18 08:49 Dose: 15 gm Dextrose (Dextrose 50% Inj) 50 ml IV PRN PRN; Protocol PRN Reason: Hypoglycemia Protocol Glucagon (Glucagen Diagnostic Kit) 0 mg IM STAT PRN; Protocol PRN Reason: Hypoglycemia Protocol Ceftriaxone Sodium 1 gm/ (Sodium Chloride) 100 mls @ 100 mls/hr IVPB Q12H [facility]; Protocol Last Admin: 11/04/18 08:15 Dose: 100 mls/hr Insulin Aspart (Novolog Mix 70/30 (70/30 Units/Ml)) 16 units SC BID [facility] Last Admin: 11/04/18 10:27 Dose: 16 u Insulin Human Regular (Novolin R) 0 unit SC ACHS [facility]; Protocol Last Admin: 11/04/18 12:26 Dose: 4 units Losartan Potassium (Cozaar) 50 mg PO DAILY [facility] Last Admin: 11/04/18 10:27 Dose: 50 mg Pantoprazole Sodium (Protonix Ec Tab) 20 mg PO DAILY [facility] Last Admin: 11/04/18 10:27 Dose: 20 mg Results - Vital Signs Recent Vital Signs: Last Vital Signs Temp 98.2 F 11/04/18 07:00 Pulse 76 11/04/18 07:00 Resp 20 11/04/18 07:00 BP 163/83 H 11/04/18 07:00 Pulse Ox 100 11/04/18 07:00 - Labs Result Diagrams: 11/03/18 06:20 11/03/18 06:20 Labs: Laboratory Results - last 24 hr 11/02/18 11/02/18 11/03/18 16:16 20:56 06:31 POC Glucose (mg/dL) 248 H 190 H 254 H 11/03/18 11/03/18 11/04/18 16:22 21:13 02:00 POC Glucose (mg/dL) 476 H* 472 H* 262 H 11/04/18 06:43 POC Glucose (mg/dL) 282 H Assessment & Plan - Assessment and Plan (Free Text) Assessment: All medical record entries made by the resident were at my direction and personally directed by me. I have reviewed the chart and agree that the record accurately reflects my personal performance of the history, physical exam, medical decision making, and the department course for this patient. I have also personally directed, reviewed, and agree with the resident note. On review of CT scan and labs, cyst does not appear like a tumor or abscess. Many changes consistent with chronic pancreatitis. Portal vein thrombosis with cavernous tranformation. Given prior pancreatitis, lesion may be an old pseudocyst. CEA and CA19-9 minimally elevated. Will see as an outpatient, card given to patient Plan: Follow up as an outpatient Repeat MRI in 2 months - Date & Time Date: 11/04/18 Time: 13:08
--- NOTE | 2018-11-04 14:31 | CP.PCM.PN ---
Subjective - Date & Time of Evaluation Date of Evaluation: 11/04/18 Time of Evaluation: 07:00 Objective - Vital Signs/Intake and Output Vital Signs (last 24 hours): Temp Pulse Resp BP Pulse Ox 98.2 F 76 20 163/83 H 100 11/04/18 07:00 11/04/18 07:00 11/04/18 07:00 11/04/18 07:00 11/04/18 07:00 Intake and Output: 11/04/18 11/04/18 06:59 18:59 Intake Total 650 Balance 650 - Medications Medications: Current Medications Acetaminophen (Tylenol 325mg Tab) 650 mg PO Q6 PRN PRN Reason: Fever >100.4 F Last Admin: 10/24/18 05:14 Dose: 650 mg Bismuth Subsalicylate (Pepto Bismol) 262 mg PO Q4H PRN PRN Reason: Diarrhea Clopidogrel Bisulfate (Plavix) 75 mg PO DAILY [facility] Last Admin: 11/02/18 09:43 Dose: 75 mg Dextrose (Glutose 15) 0 gm PO ONCE PRN; Protocol PRN Reason: Hypoglycemia Protocol Last Admin: 10/24/18 08:49 Dose: 15 gm Dextrose (Dextrose 50% Inj) 50 ml IV PRN PRN; Protocol PRN Reason: Hypoglycemia Protocol Glucagon (Glucagen Diagnostic Kit) 0 mg IM STAT PRN; Protocol PRN Reason: Hypoglycemia Protocol Ceftriaxone Sodium 1 gm/ (Sodium Chloride) 100 mls @ 100 mls/hr IVPB Q12H [facility]; Protocol Last Admin: 11/04/18 08:15 Dose: 100 mls/hr Insulin Aspart (Novolog Mix 70/30 (70/30 Units/Ml)) 16 units SC BID [facility] Last Admin: 11/04/18 10:27 Dose: 16 u Insulin Human Regular (Novolin R) 0 unit SC ACHS [facility]; Protocol Last Admin: 11/04/18 12:26 Dose: 4 units Losartan Potassium (Cozaar) 50 mg PO DAILY [facility] Last Admin: 11/04/18 10:27 Dose: 50 mg Pantoprazole Sodium (Protonix Ec Tab) 20 mg PO DAILY [facility] Last Admin: 11/04/18 10:27 Dose: 20 mg - Labs Labs: 11/03/18 06:20 11/03/18 06:20 PT 13.8 SECONDS (9.7-12.2) H 10/23/18 13:15 INR 1.3 10/23/18 13:15 APTT 25 SECONDS (21-34) 10/23/18 13:15
--- NOTE | 2018-11-04 15:07 | PN ---
DATE: 11/04/2018 LOCATION: 667, bed B. SUBJECTIVE: This 52-year-old male seen and examined in rounds without any significant clinical changes or reported active bleeding, with generalized weakness and malaise. No reported chest pain, palpitation or shortness of breath. The entire chart is reviewed including the most recent lab result with today's blood glucose level of 282, rest of the lab results still pending. PHYSICAL EXAMINATION: GENERAL: A 52-year-old male,appears to be somewhat mildly cachectic. VITAL SIGNS: Afebrile with pulse of 78, respiratory rate 20-22,blood pressure of 152/80. HEENT: Showed mildly pale dry oral mucous membrane. Nonicteric sclerae. LUNGS: Few scattered crepitation. Decreased air entry at bases. HEART: Positive S1 and S2. ABDOMEN: Soft with mild generalized tenderness. No mass or organomegaly. No rebound tenderness or guarding. EXTREMITIES: Without significant clubbing, cyanosis or edema. IMPRESSION: 1. Anemia. 2. Abdominal mass of unclear etiology, possibility of lymphoma with lymphadenopathy . 3. Re-exacerbation of peptic ulcer disease. 4. Septicemia, on antibiotics. 5. Poorly controlled diabetes mellitus. 6. Poorly controlled hypertension. 7. Anemia secondary to above. SUGGESTION: 1. Continue current management. 2. Again, the patient may need laparoscopy, to be done surgically with possible biopsy of the mass lesion, otherwise close observation to follow. Paramjit Ramos MD
--- NOTE | 2018-11-04 18:38 | CP.PCM.PN ---
Subjective - Date & Time of Evaluation Date of Evaluation: 11/04/18 Time of Evaluation: 18:38 - Subjective Subjective: afebrile, vss, NO NEW COMPLAINTS. LABS/RADIOLOGY; SOLA-REPORTED NEGATIVE FOR VEGETATIONS. CERETAC SCAN -VE ABSCESS. REPEAT BLOOD CULTURES NEGATIVE TO DATE DIARRHEA WORKUP NEGATIVE. QFT-GOLD TB TEST NEGATIVE. HIV 1/2 AB -VE CD4 HELPER CELLS - N Objective - Vital Signs/Intake and Output Vital Signs (last 24 hours): Temp Pulse Resp BP Pulse Ox 98.2 F 76 20 163/83 H 100 11/04/18 07:00 11/04/18 07:00 11/04/18 07:00 11/04/18 07:00 11/04/18 07:00 Intake and Output: 11/04/18 11/04/18 06:59 18:59 Intake Total 650 400 Balance 650 400 - Medications Medications: Current Medications Acetaminophen (Tylenol 325mg Tab) 650 mg PO Q6 PRN PRN Reason: Fever >100.4 F Last Admin: 10/24/18 05:14 Dose: 650 mg Bismuth Subsalicylate (Pepto Bismol) 262 mg PO Q4H PRN PRN Reason: Diarrhea Clopidogrel Bisulfate (Plavix) 75 mg PO DAILY [facility] Last Admin: 11/02/18 09:43 Dose: 75 mg Dextrose (Glutose 15) 0 gm PO ONCE PRN; Protocol PRN Reason: Hypoglycemia Protocol Last Admin: 10/24/18 08:49 Dose: 15 gm Dextrose (Dextrose 50% Inj) 50 ml IV PRN PRN; Protocol PRN Reason: Hypoglycemia Protocol Glucagon (Glucagen Diagnostic Kit) 0 mg IM STAT PRN; Protocol PRN Reason: Hypoglycemia Protocol Ceftriaxone Sodium 1 gm/ (Sodium Chloride) 100 mls @ 100 mls/hr IVPB Q12H [facility]; Protocol Last Admin: 11/04/18 08:15 Dose: 100 mls/hr Insulin Aspart (Novolog Mix 70/30 (70/30 Units/Ml)) 16 units SC BID [facility] Last Admin: 11/04/18 17:59 Dose: 16 u Insulin Human Regular (Novolin R) 0 unit SC ACHS [facility]; Protocol Last Admin: 11/04/18 18:00 Dose: 6 units Losartan Potassium (Cozaar) 50 mg PO DAILY [facility] Last Admin: 11/04/18 10:27 Dose: 50 mg Pantoprazole Sodium (Protonix Ec Tab) 20 mg PO DAILY [facility] Last Admin: 11/04/18 10:27 Dose: 20 mg - Labs Labs: 11/03/18 06:20 11/03/18 06:20 PT 13.8 SECONDS (9.7-12.2) H 10/23/18 13:15 INR 1.3 10/23/18 13:15 APTT 25 SECONDS (21-34) 10/23/18 13:15 - Constitutional Appears: No Acute Distress, Cachectic - Head Exam Head Exam: NORMAL INSPECTION - Eye Exam Eye Exam: EOMI, PERRL - ENT Exam ENT Exam: Mucous Membranes Moist, Normal Oropharynx - Respiratory Exam Respiratory Exam: Clear to Ausculation Bilateral - Cardiovascular Exam Cardiovascular Exam: REGULAR RHYTHM, +S1, +S2 - GI/Abdominal Exam GI & Abdominal Exam: Soft, Normal Bowel Sounds. absent: Tenderness, Mass - Extremities Exam Extremities Exam: Normal Capillary Refill. absent: Calf Tenderness, Pedal Edema - Neurological Exam Neurological Exam: Alert, Awake, CN II-XII Intact, Normal Gait, Oriented x3, Reflexes Normal - Psychiatric Exam Psychiatric exam: Normal Affect, Normal Mood - Skin Skin Exam: Normal Color, Warm Assessment and Plan (1) Gram negative sepsis Status: Acute (2) Gram positive sepsis Status: Acute (3) Sepsis Status: Acute (4) Abdominal pain Status: Acute (5) Abdominal mass Status: Acute (6) Hx of splenectomy Status: Acute (7) Diabetes Status: Acute (8) HTN (hypertension) Status: Acute - Assessment and Plan (Free Text) Plan: CONTINUE IV ROCEPHIN 1GM IVPB P96BSLE. F/U SOLA OFFICIAL REPORT. IF -VE PT CAN BE SWITCHED TO PO AUGMENTIN 875MG PO BID X I WEEK MORE FOR STREP-VIRIDANS/ E COLI BACTEREMIA ON D/C SOURCE OF SEPSIS MOST PROBABLE GI/. PT FOR FURTHER W/U FOR PANCREATIC CA , DISCUSSED WITH ONCOLOGY/ AND PMD REPORTED BY PMD THAT PT HAD WHIPPLE"S PROCEDURE FOR PANCREATIC CA / AND SPLENECTOMY SEVERAL YRS AGO. CASE DISCUSSED WITH PMD/and staff
--- NOTE | 2018-11-04 18:43 | PN ---
DATE: 11/04/2018 SUBJECTIVE: The patient's blood sugars are fluctuating. He is weak, here for tomorrow morning. He denies any fever. He is on antibiotics, and he has been seen by ID and he is on Rocephin. Case discussed with Dr. Sheppard. Transesophageal echocardiogram is negative for vegetation. PHYSICAL EXAMINATION: VITAL SIGNS: Blood pressure is 157/84, pulse 73, respiratory rate 18, temperature 98.5. LUNGS: Clear. ABDOMEN: Soft, nontender. Bowel sounds are positive. ASSESSMENT: 1. Infective endocarditis. 2. Rule out tuberculosis. 3. History of pancreatic cancer. 4. Poorly controlled diabetes. PLAN: Admit. Detailed orders are written. Seen and examined. Dennis Verdin MD
--- NOTE | 2018-11-04 18:46 | PN ---
DATE: 11/04/2018 SUBJECTIVE: The patient is for today. He is also for evaluation by Hepatobiliary. PHYSICAL EXAMINATION: VITAL SIGNS: Blood pressure 162/83, pulse 76, respiratory rate 20, temperature 98.2. LUNGS: Clear. ABDOMEN: Soft, nontender. Bowel sounds are positive. ASSESSMENT: Septicemia. PLAN: The patient is on Rocephin, pending . Continue current medication. Monitor the patient. Dennis Verdin MD
--- NOTE | 2018-11-05 08:15 | PN ---
DATE: 11/05/2018 LOCATION: 667, bed B. SUBJECTIVE: This is a 52-year-old male, seen and examined in rounds without significant clinical changes or reported active bleeding, appeared to be somewhat cachectic, but afebrile with no added new complaint. Recent workup by ID showed no evidence of abscess formation by the Ceretec scan and repeat blood cultures so far reported to be negative. The patient still has intermittent period of mild semi-soft bowel movement. No reported active bleeding. The entire chart is reviewed, and the most recent lab results showed blood glucose level of 105 as per today with the latest hemoglobin and hematocrit of 10.7 and 31.5 with low calcium, low BUN and creatinine. PHYSICAL EXAMINATION: GENERAL: A 52-year-old male. VITAL SIGNS: Afebrile with pulse of 80, respiratory rate 20-22, blood pressure of 142/70. HEENT: Showed pale dry oral mucous membrane. Nonicteric sclerae. LUNGS: Few scattered crepitation. Decreased air entry at bases. HEART: Positive S1 and S2. ABDOMEN: Soft with mild generalized tenderness. No mass or organomegaly. No rebound tenderness or guarding. EXTREMITIES: Without significant clubbing, cyanosis, or edema. NEUROLOGIC: No reported new neurological deficits, sensory or motor. IMPRESSION: 1. Acute on top of chronic pancreatitis, awaiting repeat lipase and amylase level. 2. Re-exacerbation of peptic ulcer disease. 3. Poorly controlled diabetes mellitus, poorly controlled hypertension. 4. Recent history of septicemia, on antibiotics. 5. Anemia, most likely secondary to above. The possibility of gastrointestinal blood loss was raised, however, no evidence of active bleeding since admission. SUGGESTIONS: 1. Continue current management. 2. Follow up in cancer markers including CEA, PSA, and CA 19-9. 3. If the patient's symptoms persist, then upper GI with small bowel follow through to be ordered. That to be discussed with ID consult. 4. Further recommendation to follow. Paramjit Ramos MD (Delete this signature block when dictator is a preceptor.) cc: MD Candy (Delete if not dictated.)
[2018-11-05] MEDS: LIPASE/PROTEASE/AMYLASE 4,200 U ECC PO SCH ×3 (08:18→18:00)
[2018-11-05] MEDS: (Novolin R) Insulin Human Regular 100 units/ml vial SC SCH ×4 (10:19→22:18)
[2018-11-05] MEDS: Pantoprazole 20 mg EC Tab PO SCH (10:22)
[2018-11-05] MEDS: (Novolog Mix 70/30) Insulin Aspart/Insulin Aspar 100 units/ml SC SCH ×2 (10:36→18:32)
--- NOTE | 2018-11-05 11:07 | CARD ---
APPROVED REPORT Date of service: 11/03/2018 EXAM: Transesophageal echocardiogram with color flow Doppler. Echo Enhancing Agent Indication: Rule Out Septal Defect Agent/Amount Used: Agitated Saline Mitral Valve E/A ratio0.0 TDI E/Lateral E'0.0E/Medial E'0.0 Reason For Test : Rule out endocarditis. PROCEDURE After obtaining informed consent, patient underwent transesophageal echo in the [employer]. Type of Sedation : Conscious Sedation Sedation was provided by anesthesiologist. Sedation was achieved with intravenously. The SOLA was performed complications. Throughout the procedure, the blood pressure, pulse oximetry, cardiac rhythm, and rate were monitored. The patient tolerated the procedure without adverse effects. Recovery from conscious sedation was uneventful and vital signs were stable. LEFT VENTRICLE The left ventricle is normal size. Left ventricle systolic function is mildly to moderately impaired. The Ejection Fraction is 40-45%. No left ventricle thrombus noted on this study. There is no ventricular septal defect visualized. RIGHT VENTRICLE The right ventricle is normal size. The right ventricular systolic function is normal. ATRIA The left atrium size is normal. The right atrium size is normal. PFO noted. No bubble cross over from Right to left AORTIC VALVE The aortic valve is normal in structure. No aortic regurgitation is present. There is no aortic valvular stenosis. There is no aortic valvular vegetation. MITRAL VALVE The mitral valve is normal in structure. There is no evidence of mitral valve prolapse. There is no mitral valve stenosis. There is no mitral valve regurgitation noted. TRICUSPID VALVE The tricuspid valve is normal in structure. There is mild tricuspid regurgitation. There is no tricuspid valve prolapse or vegetation. There is no tricuspid valve stenosis. PULMONIC VALVE The pulmonary valve is normal in structure. GREAT VESSELS The aortic root is normal in size. <Conclusion> Left ventricle systolic function is mildly to moderately impaired. The Ejection Fraction is 40-45%. The right ventricle is normal size. PFO noted. No bubble cross over from Right to left The aortic root is normal in size. No evidence of endocarditis
--- NOTE | 2018-11-05 15:03 | CP.PCM.PN ---
Subjective - Date & Time of Evaluation Date of Evaluation: 11/05/18 Time of Evaluation: 15:03 - Subjective Subjective: AFEBRILE, NO COMPLAINTS ON IV ABX CARDIOLOGY AND ONCOLOGY F/U NOTED SOLA -VE FOR VEGS . +VE PFO LABS ; REPEAT CULTURES -VE X 5 DAYS . WBC 7.5 HIV 1/2 AB -VE CD4 HELPER CELLS - N QFT -GOLD TB TEST -VE. DIARRHOEA W/U -VE. Objective - Vital Signs/Intake and Output Vital Signs (last 24 hours): Temp Pulse Resp BP Pulse Ox 98.0 F 73 20 158/86 H 99 11/05/18 07:05 11/05/18 07:05 11/05/18 07:05 11/05/18 07:05 11/05/18 07:05 Intake and Output: 11/05/18 11/05/18 06:59 18:59 Intake Total 100 Output Total 200 Balance -100 - Medications Medications: Current Medications Acetaminophen (Tylenol 325mg Tab) 650 mg PO Q6 PRN PRN Reason: Fever >100.4 F Last Admin: 10/24/18 05:14 Dose: 650 mg Bismuth Subsalicylate (Pepto Bismol) 262 mg PO Q4H PRN PRN Reason: Diarrhea Clopidogrel Bisulfate (Plavix) 75 mg PO DAILY [facility] Last Admin: 11/02/18 09:43 Dose: 75 mg Dextrose (Glutose 15) 0 gm PO ONCE PRN; Protocol PRN Reason: Hypoglycemia Protocol Last Admin: 10/24/18 08:49 Dose: 15 gm Dextrose (Dextrose 50% Inj) 50 ml IV PRN PRN; Protocol PRN Reason: Hypoglycemia Protocol Glucagon (Glucagen Diagnostic Kit) 0 mg IM STAT PRN; Protocol PRN Reason: Hypoglycemia Protocol Ceftriaxone Sodium 1 gm/ (Sodium Chloride) 100 mls @ 100 mls/hr IVPB Q12H [facility]; Protocol Last Admin: 11/05/18 10:22 Dose: 100 mls/hr Insulin Aspart (Novolog Mix 70/30 (70/30 Units/Ml)) 16 units SC BID [facility] Last Admin: 11/05/18 10:36 Dose: 16 u Insulin Human Regular (Novolin R) 0 unit SC ACHS [facility]; Protocol Last Admin: 11/05/18 11:58 Dose: 4 units Losartan Potassium (Cozaar) 50 mg PO DAILY [facility] Last Admin: 11/05/18 10:18 Dose: 50 mg Pantoprazole Sodium (Protonix Ec Tab) 20 mg PO DAILY [facility] Last Admin: 11/05/18 10:22 Dose: 20 mg - Labs Labs: 11/03/18 06:20 11/03/18 06:20 PT 13.8 SECONDS (9.7-12.2) H 10/23/18 13:15 INR 1.3 10/23/18 13:15 APTT 25 SECONDS (21-34) 10/23/18 13:15 - Constitutional Appears: No Acute Distress, Cachectic - Head Exam Head Exam: NORMAL INSPECTION - Eye Exam Eye Exam: EOMI, PERRL - ENT Exam ENT Exam: Normal Oropharynx - Neck Exam Neck Exam: Normal Inspection. absent: Lymphadenopathy - Respiratory Exam Respiratory Exam: Clear to Ausculation Bilateral - Cardiovascular Exam Cardiovascular Exam: REGULAR RHYTHM, +S1, +S2 - GI/Abdominal Exam GI & Abdominal Exam: Soft, Normal Bowel Sounds. absent: Mass - Extremities Exam Extremities Exam: Normal Capillary Refill. absent: Calf Tenderness, Pedal Edema - Neurological Exam Neurological Exam: Alert, Awake, CN II-XII Intact, Normal Gait, Oriented x3, Reflexes Normal - Psychiatric Exam Psychiatric exam: Normal Mood - Skin Skin Exam: Normal Color, Warm Assessment and Plan (1) Gram negative sepsis Status: Acute (2) Gram positive sepsis Status: Acute (3) Sepsis Status: Acute (4) Abdominal pain Status: Acute (5) Abdominal mass Status: Acute (6) Hx of splenectomy Status: Acute (7) Diabetes Status: Acute (8) HTN (hypertension) Status: Acute - Assessment and Plan (Free Text) Plan: PO AUGMENTIN 875MG PO BID X I WEEK MORE FOR STREP-VIRIDANS/ E COLI BACTEREMIA ON D/C SOURCE OF SEPSIS MOST PROBABLE GI/. PER PMD / AND CONSULTANTS.
--- NOTE | 2018-11-05 20:50 | CP.PCM.PN ---
Subjective - Date & Time of Evaluation Date of Evaluation: 11/05/18 Time of Evaluation: 11:10 - Subjective Subjective: Patient seen and evaluated Denies chest pain and dyspnea Physical Exam - Constitutional Appears: Well - Head Exam Head Exam: ATRAUMATIC, NORMAL INSPECTION - Eye Exam Eye Exam: EOMI, Normal appearance - Neck Exam Neck exam: Positive for: Normal Inspection - GI/Abdominal Exam GI & Abdominal Exam: Normal Bowel Sounds, Soft. absent: Distended, Firm, Guarding - Neurological Exam Neurological exam: Alert, Oriented x3 - Psychiatric Exam Psychiatric exam: Normal Affect, Normal Mood - Skin Skin Exam: Dry, Intact, Normal Color, Warm Assessment & Plan - Assessment and Plan (Free Text) Assessment: 52 y/o m with PMHx of DM presented to the ED and admitted on 10/23 s/p syncope per chart review. GI being consulted for diarrhea. bacteremia and s/p sepsis -10/23: e-coli in blood culture -patient still with leukocytosis 18.6, on abx --vanc 1g q12h, 10/24 to 10/29 --cefepime 1g q8h started 10/24 --flagyl 500 mg q8h 10/26-11/02 Abdominal mass -pending official report of abdominal MRI -CTAP: 3.4 cm mass displacing abdominal aorta to the left -concern for malignancy. CEA 6.9H and CA 19-9 at 41.6H. pancytopenia -Heme onc consulted, Dr. Menendez, appreciate recs S/p SOLA and TTE Near Normal EF No endocarditis PFO with left to right shunt Recommend medical mgt with ASA 81 daily Objective - Vital Signs/Intake and Output Vital Signs (last 24 hours): Temp Pulse Resp BP Pulse Ox 97.8 F 80 20 158/84 H 100 11/05/18 15:00 11/05/18 15:00 11/05/18 15:00 11/05/18 15:00 11/05/18 15:00 - Medications Medications: Current Medications Acetaminophen (Tylenol 325mg Tab) 650 mg PO Q6 PRN PRN Reason: Fever >100.4 F Last Admin: 10/24/18 05:14 Dose: 650 mg Bismuth Subsalicylate (Pepto Bismol) 262 mg PO Q4H PRN PRN Reason: Diarrhea Clopidogrel Bisulfate (Plavix) 75 mg PO DAILY [facility] Last Admin: 11/02/18 09:43 Dose: 75 mg Dextrose (Glutose 15) 0 gm PO ONCE PRN; Protocol PRN Reason: Hypoglycemia Protocol Last Admin: 10/24/18 08:49 Dose: 15 gm Dextrose (Dextrose 50% Inj) 50 ml IV PRN PRN; Protocol PRN Reason: Hypoglycemia Protocol Glucagon (Glucagen Diagnostic Kit) 0 mg IM STAT PRN; Protocol PRN Reason: Hypoglycemia Protocol Ceftriaxone Sodium 1 gm/ (Sodium Chloride) 100 mls @ 100 mls/hr IVPB Q12H [facility]; Protocol Last Admin: 11/05/18 10:22 Dose: 100 mls/hr Insulin Aspart (Novolog Mix 70/30 (70/30 Units/Ml)) 16 units SC BID [facility] Last Admin: 11/05/18 18:32 Dose: 16 u Insulin Human Regular (Novolin R) 0 unit SC ACHS [facility]; Protocol Last Admin: 11/05/18 17:30 Dose: Not Given Losartan Potassium (Cozaar) 50 mg PO DAILY [facility] Last Admin: 11/05/18 10:18 Dose: 50 mg Pantoprazole Sodium (Protonix Ec Tab) 20 mg PO DAILY [facility] Last Admin: 11/05/18 10:22 Dose: 20 mg - Labs Labs: 11/03/18 06:20 11/03/18 06:20 PT 13.8 SECONDS (9.7-12.2) H 10/23/18 13:15 INR 1.3 10/23/18 13:15 APTT 25 SECONDS (21-34) 10/23/18 13:15
--- NOTE | 2018-11-05 20:50 | CP.PCM.PN ---
Subjective - Date & Time of Evaluation Date of Evaluation: 11/04/18 Time of Evaluation: 17:20 - Subjective Subjective: Patient seen and evaluated Denies chest pain and dyspnea Physical Exam - Constitutional Appears: Well - Head Exam Head Exam: ATRAUMATIC, NORMAL INSPECTION - Eye Exam Eye Exam: EOMI, Normal appearance - Neck Exam Neck exam: Positive for: Normal Inspection - GI/Abdominal Exam GI & Abdominal Exam: Normal Bowel Sounds, Soft. absent: Distended, Firm, Guarding - Neurological Exam Neurological exam: Alert, Oriented x3 - Psychiatric Exam Psychiatric exam: Normal Affect, Normal Mood - Skin Skin Exam: Dry, Intact, Normal Color, Warm Assessment & Plan - Assessment and Plan (Free Text) Assessment: 52 y/o m with PMHx of DM presented to the ED and admitted on 10/23 s/p syncope per chart review. GI being consulted for diarrhea. bacteremia and s/p sepsis -10/23: e-coli in blood culture -patient still with leukocytosis 18.6, on abx --vanc 1g q12h, 10/24 to 10/29 --cefepime 1g q8h started 10/24 --flagyl 500 mg q8h 10/26-11/02 Abdominal mass -pending official report of abdominal MRI -CTAP: 3.4 cm mass displacing abdominal aorta to the left -concern for malignancy. CEA 6.9H and CA 19-9 at 41.6H. pancytopenia -Heme onc consulted, Dr. Menendez, appreciate recs S/p SOLA and TTE Near Normal EF No endocarditis PFO with left to right shunt Recommend medical mgt with ASA 81 daily Objective - Vital Signs/Intake and Output Vital Signs (last 24 hours): Temp Pulse Resp BP Pulse Ox 97.8 F 80 20 158/84 H 100 11/05/18 15:00 11/05/18 15:00 11/05/18 15:00 11/05/18 15:00 11/05/18 15:00 - Medications Medications: Current Medications Acetaminophen (Tylenol 325mg Tab) 650 mg PO Q6 PRN PRN Reason: Fever >100.4 F Last Admin: 10/24/18 05:14 Dose: 650 mg Bismuth Subsalicylate (Pepto Bismol) 262 mg PO Q4H PRN PRN Reason: Diarrhea Clopidogrel Bisulfate (Plavix) 75 mg PO DAILY [facility] Last Admin: 11/02/18 09:43 Dose: 75 mg Dextrose (Glutose 15) 0 gm PO ONCE PRN; Protocol PRN Reason: Hypoglycemia Protocol Last Admin: 10/24/18 08:49 Dose: 15 gm Dextrose (Dextrose 50% Inj) 50 ml IV PRN PRN; Protocol PRN Reason: Hypoglycemia Protocol Glucagon (Glucagen Diagnostic Kit) 0 mg IM STAT PRN; Protocol PRN Reason: Hypoglycemia Protocol Ceftriaxone Sodium 1 gm/ (Sodium Chloride) 100 mls @ 100 mls/hr IVPB Q12H [facility]; Protocol Last Admin: 11/05/18 10:22 Dose: 100 mls/hr Insulin Aspart (Novolog Mix 70/30 (70/30 Units/Ml)) 16 units SC BID [facility] Last Admin: 11/05/18 18:32 Dose: 16 u Insulin Human Regular (Novolin R) 0 unit SC ACHS [facility]; Protocol Last Admin: 11/05/18 17:30 Dose: Not Given Losartan Potassium (Cozaar) 50 mg PO DAILY [facility] Last Admin: 11/05/18 10:18 Dose: 50 mg Pantoprazole Sodium (Protonix Ec Tab) 20 mg PO DAILY [facility] Last Admin: 11/05/18 10:22 Dose: 20 mg - Labs Labs: 11/03/18 06:20 11/03/18 06:20 PT 13.8 SECONDS (9.7-12.2) H 10/23/18 13:15 INR 1.3 10/23/18 13:15 APTT 25 SECONDS (21-34) 10/23/18 13:15
--- NOTE | 2018-11-05 21:17 | CP.PCM.PN ---
Subjective - Date & Time of Evaluation Date of Evaluation: 11/04/18 Time of Evaluation: 19:00 - Subjective Subjective: No complaints. Objective - Vital Signs/Intake and Output Vital Signs (last 24 hours): Temp Pulse Resp BP Pulse Ox 97.8 F 80 20 158/84 H 100 11/05/18 15:00 11/05/18 15:00 11/05/18 15:00 11/05/18 15:00 11/05/18 15:00 - Medications Medications: Current Medications Acetaminophen (Tylenol 325mg Tab) 650 mg PO Q6 PRN PRN Reason: Fever >100.4 F Last Admin: 10/24/18 05:14 Dose: 650 mg Bismuth Subsalicylate (Pepto Bismol) 262 mg PO Q4H PRN PRN Reason: Diarrhea Clopidogrel Bisulfate (Plavix) 75 mg PO DAILY [facility] Last Admin: 11/02/18 09:43 Dose: 75 mg Dextrose (Glutose 15) 0 gm PO ONCE PRN; Protocol PRN Reason: Hypoglycemia Protocol Last Admin: 10/24/18 08:49 Dose: 15 gm Dextrose (Dextrose 50% Inj) 50 ml IV PRN PRN; Protocol PRN Reason: Hypoglycemia Protocol Glucagon (Glucagen Diagnostic Kit) 0 mg IM STAT PRN; Protocol PRN Reason: Hypoglycemia Protocol Ceftriaxone Sodium 1 gm/ (Sodium Chloride) 100 mls @ 100 mls/hr IVPB Q12H [facility]; Protocol Last Admin: 11/05/18 21:14 Dose: 100 mls/hr Insulin Aspart (Novolog Mix 70/30 (70/30 Units/Ml)) 16 units SC BID [facility] Last Admin: 11/05/18 18:32 Dose: 16 u Insulin Human Regular (Novolin R) 0 unit SC ACHS [facility]; Protocol Last Admin: 11/05/18 17:30 Dose: Not Given Losartan Potassium (Cozaar) 50 mg PO DAILY [facility] Last Admin: 11/05/18 10:18 Dose: 50 mg Pantoprazole Sodium (Protonix Ec Tab) 20 mg PO DAILY [facility] Last Admin: 11/05/18 10:22 Dose: 20 mg - Labs Labs: 11/03/18 06:20 11/03/18 06:20 PT 13.8 SECONDS (9.7-12.2) H 10/23/18 13:15 INR 1.3 10/23/18 13:15 APTT 25 SECONDS (21-34) 10/23/18 13:15 - Head Exam Head Exam: ATRAUMATIC - Eye Exam Eye Exam: Normal appearance - ENT Exam ENT Exam: Mucous Membranes Dry - Respiratory Exam Respiratory Exam: NORMAL BREATHING PATTERN - Cardiovascular Exam Cardiovascular Exam: +S1, +S2 - GI/Abdominal Exam GI & Abdominal Exam: Normal Bowel Sounds Assessment and Plan (1) Abdominal mass Assessment & Plan: seen by hepatobiliary surgeon - mass may be pseudocyst WBC scan negative outpatient surveillance imaging Status: Acute (2) Anemia Assessment & Plan: chronic disease Status: Acute
--- NOTE | 2018-11-05 21:18 | CP.PCM.PN ---
Subjective - Date & Time of Evaluation Date of Evaluation: 11/05/18 Time of Evaluation: 18:00 - Subjective Subjective: No complaints. Objective - Vital Signs/Intake and Output Vital Signs (last 24 hours): Temp Pulse Resp BP Pulse Ox 97.8 F 80 20 158/84 H 100 11/05/18 15:00 11/05/18 15:00 11/05/18 15:00 11/05/18 15:00 11/05/18 15:00 - Medications Medications: Current Medications Acetaminophen (Tylenol 325mg Tab) 650 mg PO Q6 PRN PRN Reason: Fever >100.4 F Last Admin: 10/24/18 05:14 Dose: 650 mg Bismuth Subsalicylate (Pepto Bismol) 262 mg PO Q4H PRN PRN Reason: Diarrhea Clopidogrel Bisulfate (Plavix) 75 mg PO DAILY [facility] Last Admin: 11/02/18 09:43 Dose: 75 mg Dextrose (Glutose 15) 0 gm PO ONCE PRN; Protocol PRN Reason: Hypoglycemia Protocol Last Admin: 10/24/18 08:49 Dose: 15 gm Dextrose (Dextrose 50% Inj) 50 ml IV PRN PRN; Protocol PRN Reason: Hypoglycemia Protocol Glucagon (Glucagen Diagnostic Kit) 0 mg IM STAT PRN; Protocol PRN Reason: Hypoglycemia Protocol Ceftriaxone Sodium 1 gm/ (Sodium Chloride) 100 mls @ 100 mls/hr IVPB Q12H [facility]; Protocol Last Admin: 11/05/18 21:14 Dose: 100 mls/hr Insulin Aspart (Novolog Mix 70/30 (70/30 Units/Ml)) 16 units SC BID [facility] Last Admin: 11/05/18 18:32 Dose: 16 u Insulin Human Regular (Novolin R) 0 unit SC ACHS [facility]; Protocol Last Admin: 11/05/18 17:30 Dose: Not Given Losartan Potassium (Cozaar) 50 mg PO DAILY [facility] Last Admin: 11/05/18 10:18 Dose: 50 mg Pantoprazole Sodium (Protonix Ec Tab) 20 mg PO DAILY [facility] Last Admin: 11/05/18 10:22 Dose: 20 mg - Labs Labs: 11/03/18 06:20 11/03/18 06:20 PT 13.8 SECONDS (9.7-12.2) H 10/23/18 13:15 INR 1.3 10/23/18 13:15 APTT 25 SECONDS (21-34) 10/23/18 13:15 - Head Exam Head Exam: ATRAUMATIC - Eye Exam Eye Exam: Normal appearance - ENT Exam ENT Exam: Mucous Membranes Dry - Respiratory Exam Respiratory Exam: NORMAL BREATHING PATTERN - Cardiovascular Exam Cardiovascular Exam: +S1, +S2 - GI/Abdominal Exam GI & Abdominal Exam: Normal Bowel Sounds Assessment and Plan (1) Abdominal mass Assessment & Plan: possible pseudocyst WBC scan negative outpatient surveillance imaging. Status: Acute (2) Anemia Assessment & Plan: chronic disease Status: Acute
--- NOTE | 2018-11-05 22:23 | PN ---
DATE: 11/05/2018 SUBJECTIVE: The patient is afebrile. The patient is on Rocephin. He had transesophageal echocardiogram which is negative for infective endocarditis, patent foramen ovale. Blood sugars have gone down 307, 185, 105, 263, better than before. The patient's Ceretec scan is negative. We will discuss with Infectious Disease. Dennis Verdin MD
[2018-11-06] MEDS: (Novolin R) Insulin Human Regular 100 units/ml vial SC SCH ×4 (07:59→22:23)
[2018-11-06] MEDS: LIPASE/PROTEASE/AMYLASE 4,200 U ECC PO SCH ×3 (08:02→18:00)
--- NOTE | 2018-11-06 08:04 | PN ---
DATE: 11/06/2018 LOCATION: 667, bed B. SUBJECTIVE: This 52-year-old male seen and examined in rounds without reported significant clinical changes, but no reported active GI bleeding, actual chest pain, palpitation with period of mild shortness of breath. The entire chart is reviewed, and the most recent lab results showed blood glucose level 278, today. The patient has persistent low hemoglobin and hematocrit as well as low calcium. PHYSICAL EXAMINATION: GENERAL: A 52-year-old male. VITALS IGNS: Afebrile with pulse of 82, respiratory 20-22, blood pressure of 130/74. HEENT: Showed dry pale mucous membrane. Nonicteric sclerae. LUNGS: Few scattered crepitation. Decreased air entry at bases. HEART: Positive S1 and S2. ABDOMEN: Soft with mild generalized tenderness. No mass or organomegaly. No rebound tenderness or guarding. EXTREMITIES: Without significant edema, clubbing, or cyanosis. NEUROLOGIC: No reported new neurological deficits, sensory or motor. No reported new focal deficits. IMPRESSION: 1. Acute on top of chronic pancreatitis. 2. Re-exacerbation of peptic ulcer disease. 3. Abdominal mass lesion is to be biopsied. 4. Poorly controlled diabetes mellitus. 5. Poorly controlled hypertension. 6. Anemia secondary to above. However, the possibility of gastrointestinal blood loss upper versus lower to be kept in mind versus occult gastrointestinal malignancy. SUGGESTIONS: 1. Continue current management. 2. Laparoscopy to be done by a surgical dressing maker for abdominal mass biopsy. 3. Further recommendation to follow. Paramjit Ramos MD
--- NOTE | 2018-11-06 08:49 | CP.PCM.PN ---
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 WBC scan negative. Condition unchanged Objective - Vital Signs/Intake and Output Vital Signs (last 24 hours): Temp Pulse Resp BP Pulse Ox 98.6 F 81 20 151/81 H 100 11/06/18 07:30 11/06/18 07:30 11/06/18 07:30 11/06/18 07:30 11/06/18 07:30 Intake and Output: 11/06/18 11/06/18 06:59 18:59 Intake Total 460 Balance 460 - Medications Medications: Current Medications Acetaminophen (Tylenol 325mg Tab) 650 mg PO Q6 PRN PRN Reason: Fever >100.4 F Last Admin: 10/24/18 05:14 Dose: 650 mg Bismuth Subsalicylate (Pepto Bismol) 262 mg PO Q4H PRN PRN Reason: Diarrhea Clopidogrel Bisulfate (Plavix) 75 mg PO DAILY [facility] Last Admin: 11/02/18 09:43 Dose: 75 mg Dextrose (Glutose 15) 0 gm PO ONCE PRN; Protocol PRN Reason: Hypoglycemia Protocol Last Admin: 10/24/18 08:49 Dose: 15 gm Dextrose (Dextrose 50% Inj) 50 ml IV PRN PRN; Protocol PRN Reason: Hypoglycemia Protocol Glucagon (Glucagen Diagnostic Kit) 0 mg IM STAT PRN; Protocol PRN Reason: Hypoglycemia Protocol Ceftriaxone Sodium 1 gm/ (Sodium Chloride) 100 mls @ 100 mls/hr IVPB Q12H [facility]; Protocol Last Admin: 11/05/18 21:14 Dose: 100 mls/hr Insulin Aspart (Novolog Mix 70/30 (70/30 Units/Ml)) 16 units SC BID [facility] Last Admin: 11/05/18 18:32 Dose: 16 u Insulin Human Regular (Novolin R) 0 unit SC ACHS [facility]; Protocol Last Admin: 11/06/18 07:59 Dose: 4 units Losartan Potassium (Cozaar) 50 mg PO DAILY [facility] Last Admin: 11/05/18 10:18 Dose: 50 mg Pantoprazole Sodium (Protonix Ec Tab) 20 mg PO DAILY [facility] Last Admin: 11/05/18 10:22 Dose: 20 mg - Labs Labs: 11/03/18 06:20 11/03/18 06:20 PT 13.8 SECONDS (9.7-12.2) H 10/23/18 13:15 INR 1.3 10/23/18 13:15 APTT 25 SECONDS (21-34) 10/23/18 13:15 - Constitutional Appears: Well - GI/Abdominal Exam GI & Abdominal Exam: Soft, Normal Bowel Sounds. absent: Tenderness Assessment and Plan - Assessment and Plan (Free Text) Assessment: Acute on chronic pancreatitis, with retroperitoneal periaortic pseudocyst. Currently asymptomatic. No indication for surgical intervention. Will see as out patient. Will obviously need to remain abstinent from alcohol Plan: follow up in office
[2018-11-06] MEDS: Pantoprazole 20 mg EC Tab PO SCH (10:33)
[2018-11-06] MEDS: (Novolog Mix 70/30) Insulin Aspart/Insulin Aspar 100 units/ml SC SCH ×2 (10:33→17:57)
--- NOTE | 2018-11-06 20:55 | CP.PCM.PN ---
Subjective - Date & Time of Evaluation Date of Evaluation: 11/06/18 Time of Evaluation: 09:40 - Subjective Subjective: Patient with no cardiac events Physical Exam - Constitutional Appears: Well - Head Exam Head Exam: ATRAUMATIC, NORMAL INSPECTION - Eye Exam Eye Exam: EOMI, Normal appearance - Neck Exam Neck exam: Positive for: Normal Inspection - GI/Abdominal Exam GI & Abdominal Exam: Normal Bowel Sounds, Soft. absent: Distended, Firm, Guarding - Neurological Exam Neurological exam: Alert, Oriented x3 - Psychiatric Exam Psychiatric exam: Normal Affect, Normal Mood - Skin Skin Exam: Dry, Intact, Normal Color, Warm Assessment & Plan - Assessment and Plan (Free Text) Assessment: 52 y/o m with PMHx of DM presented to the ED and admitted on 10/23 s/p syncope per chart review. GI being consulted for diarrhea. bacteremia and s/p sepsis -10/23: e-coli in blood culture -patient still with leukocytosis 18.6, on abx --vanc 1g q12h, 10/24 to 10/29 --cefepime 1g q8h started 10/24 --flagyl 500 mg q8h 10/26-11/02 Abdominal mass -pending official report of abdominal MRI -CTAP: 3.4 cm mass displacing abdominal aorta to the left -concern for malignancy. CEA 6.9H and CA 19-9 at 41.6H. pancytopenia -Heme onc consulted, Dr. Menendez, appreciate recs S/p SOLA and TTE Near Normal EF No endocarditis PFO with left to right shunt Recommend medical mgt with ASA 81 daily Objective - Vital Signs/Intake and Output Vital Signs (last 24 hours): Temp Pulse Resp BP Pulse Ox 97.3 F L 80 20 153/79 H 97 11/06/18 15:00 11/06/18 15:00 11/06/18 15:00 11/06/18 15:00 11/06/18 15:00 - Medications Medications: Current Medications Acetaminophen (Tylenol 325mg Tab) 650 mg PO Q6 PRN PRN Reason: Fever >100.4 F Last Admin: 10/24/18 05:14 Dose: 650 mg Bismuth Subsalicylate (Pepto Bismol) 262 mg PO Q4H PRN PRN Reason: Diarrhea Clopidogrel Bisulfate (Plavix) 75 mg PO DAILY [facility] Last Admin: 11/02/18 09:43 Dose: 75 mg Dextrose (Glutose 15) 0 gm PO ONCE PRN; Protocol PRN Reason: Hypoglycemia Protocol Last Admin: 10/24/18 08:49 Dose: 15 gm Dextrose (Dextrose 50% Inj) 50 ml IV PRN PRN; Protocol PRN Reason: Hypoglycemia Protocol Glucagon (Glucagen Diagnostic Kit) 0 mg IM STAT PRN; Protocol PRN Reason: Hypoglycemia Protocol Ceftriaxone Sodium 1 gm/ (Sodium Chloride) 100 mls @ 100 mls/hr IVPB Q12H [facility]; Protocol Last Admin: 11/06/18 20:30 Dose: 100 mls/hr Insulin Aspart (Novolog Mix 70/30 (70/30 Units/Ml)) 16 units SC BID [facility] Last Admin: 11/06/18 17:57 Dose: 16 u Insulin Human Regular (Novolin R) 0 unit SC [facility]; Protocol Last Admin: 11/06/18 17:25 Dose: 6 units Losartan Potassium (Cozaar) 50 mg PO DAILY [facility] Last Admin: 11/06/18 10:32 Dose: 50 mg Pantoprazole Sodium (Protonix Ec Tab) 20 mg PO DAILY [facility] Last Admin: 11/06/18 10:33 Dose: 20 mg - Labs Labs: 11/03/18 06:20 11/03/18 06:20 PT 13.8 SECONDS (9.7-12.2) H 10/23/18 13:15 INR 1.3 10/23/18 13:15 APTT 25 SECONDS (21-34) 10/23/18 13:15
--- NOTE | 2018-11-06 21:13 | CP.PCM.PN ---
Subjective - Date & Time of Evaluation Date of Evaluation: 11/06/18 Time of Evaluation: 19:00 - Subjective Subjective: No complaints. Objective - Vital Signs/Intake and Output Vital Signs (last 24 hours): Temp Pulse Resp BP Pulse Ox 97.3 F L 80 20 153/79 H 97 11/06/18 15:00 11/06/18 15:00 11/06/18 15:00 11/06/18 15:00 11/06/18 15:00 - Medications Medications: Current Medications Acetaminophen (Tylenol 325mg Tab) 650 mg PO Q6 PRN PRN Reason: Fever >100.4 F Last Admin: 10/24/18 05:14 Dose: 650 mg Bismuth Subsalicylate (Pepto Bismol) 262 mg PO Q4H PRN PRN Reason: Diarrhea Clopidogrel Bisulfate (Plavix) 75 mg PO DAILY [facility] Last Admin: 11/02/18 09:43 Dose: 75 mg Dextrose (Glutose 15) 0 gm PO ONCE PRN; Protocol PRN Reason: Hypoglycemia Protocol Last Admin: 10/24/18 08:49 Dose: 15 gm Dextrose (Dextrose 50% Inj) 50 ml IV PRN PRN; Protocol PRN Reason: Hypoglycemia Protocol Glucagon (Glucagen Diagnostic Kit) 0 mg IM STAT PRN; Protocol PRN Reason: Hypoglycemia Protocol Ceftriaxone Sodium 1 gm/ (Sodium Chloride) 100 mls @ 100 mls/hr IVPB Q12H [facility]; Protocol Last Admin: 11/06/18 20:30 Dose: 100 mls/hr Insulin Aspart (Novolog Mix 70/30 (70/30 Units/Ml)) 16 units SC BID [facility] Last Admin: 11/06/18 17:57 Dose: 16 u Insulin Human Regular (Novolin R) 0 unit SC ACHS [facility]; Protocol Last Admin: 11/06/18 17:25 Dose: 6 units Losartan Potassium (Cozaar) 50 mg PO DAILY [facility] Last Admin: 11/06/18 10:32 Dose: 50 mg Pantoprazole Sodium (Protonix Ec Tab) 20 mg PO DAILY [facility] Last Admin: 11/06/18 10:33 Dose: 20 mg - Labs Labs: 11/03/18 06:20 11/03/18 06:20 PT 13.8 SECONDS (9.7-12.2) H 10/23/18 13:15 INR 1.3 10/23/18 13:15 APTT 25 SECONDS (21-34) 10/23/18 13:15 - Head Exam Head Exam: ATRAUMATIC - Eye Exam Eye Exam: Normal appearance - ENT Exam ENT Exam: Mucous Membranes Dry - Respiratory Exam Respiratory Exam: NORMAL BREATHING PATTERN - Cardiovascular Exam Cardiovascular Exam: +S1, +S2 - GI/Abdominal Exam GI & Abdominal Exam: Normal Bowel Sounds Assessment and Plan (1) Abdominal mass Assessment & Plan: WBC scan negative seen by hepatobiliary surgery - probable pseudocyst outpatient surveillance imaging Status: Acute (2) Anemia Assessment & Plan: chronic disease Status: Acute
--- NOTE | 2018-11-07 03:51 | PN ---
DATE: 11/07/2018 SUBJECTIVE: The patient, Aiden Her, is afebrile, not in distress. No nausea, vomiting. No chest pain. His H and H are stable. PHYSICAL EXAMINATION: VITAL SIGNS: Blood pressure 152/79, pulse 80, respiratory rate 20, temperature 97.3. LUNGS: Clear. CARDIOVASCULAR SYSTEM: S1, S2. Regular. ABDOMEN: Soft. ASSESSMENT: 1. Poorly controlled diabetes due to dietary noncompliance. 2. Infected endocarditis. 3. Hypertension. PLAN: Ceretec scan is negative. Possible discharge in a.m. Dennis Verdin MD
[2018-11-07] MEDS: (Novolin R) Insulin Human Regular 100 units/ml vial SC SCH ×2 (07:17→12:10)
[2018-11-07 07:49] LABS: HEMOGLOBIN 10.4 g/dL (12.0-18.0); MEAN CELL VOLUME 93.5 fL (80.0-94.0); MEAN CORPUSCULAR HEMOGLOBIN 31.4 pg (27.0-31.0); MEAN CORPUSCULAR HGB CONC 33.6 g/dL (33.0-37.0); MEAN PLATELET VOLUME 10.3 fL (7.2-11.7); RBC 3.33 Mil/uL (4.40-5.90); RED CELL DISTRIBUTION WIDTH 13.8 % (11.5-14.5); WHITE BLOOD COUNT 7.2 K/uL (4.8-10.8)
[2018-11-07 08:02] VITALS: TEMP 98.2; O2SAT 99
[2018-11-07 08:05] LABS: BLOOD UREA NITROGEN 6 mg/dL (9-20); CALCIUM 8.8 mg/dl (8.6-10.4); GFR NON-AFRICAN AMERICAN > 60
[2018-11-07] MEDS: LIPASE/PROTEASE/AMYLASE 4,200 U ECC PO SCH ×2 (08:07→12:06)
[2018-11-07 09:49] VITALS: BP 152/91; PULSE 75
[2018-11-07] MEDS: Pantoprazole 20 mg EC Tab PO SCH (09:49)
[2018-11-07] MEDS: (Novolog Mix 70/30) Insulin Aspart/Insulin Aspar 100 units/ml SC SCH (09:52)
--- NOTE | 2018-11-07 12:43 | CP.PCM.PN ---
Subjective - Date & Time of Evaluation Date of Evaluation: 11/07/18 Time of Evaluation: 12:43 - Subjective Subjective: afebile, NO COMPLAINTS. LABS REVIEWED; PLAN; CASE DISCUSSED WITH MANAGER OF [facility]. MR JACK Farmer. PATIENT TO BE SWITCHED TO BY MOUTH AUGMENTIN 875 MILLIGRAMS TWICE A DAY FOR 5 DAYS FOR E.COLI/STREP VIRIDANS BACTEREMIA. Objective - Vital Signs/Intake and Output Vital Signs (last 24 hours): Temp Pulse Resp BP Pulse Ox 98.2 F 75 20 152/91 H 99 11/07/18 08:00 11/07/18 09:48 11/07/18 08:00 11/07/18 09:48 11/07/18 08:00 Intake and Output: 11/07/18 11/07/18 06:59 18:59 Intake Total 580 Balance 580 - Medications Medications: Current Medications Acetaminophen (Tylenol 325mg Tab) 650 mg PO Q6 PRN PRN Reason: Fever >100.4 F Last Admin: 10/24/18 05:14 Dose: 650 mg Bismuth Subsalicylate (Pepto Bismol) 262 mg PO Q4H PRN PRN Reason: Diarrhea Clopidogrel Bisulfate (Plavix) 75 mg PO DAILY [facility] Last Admin: 11/02/18 09:43 Dose: 75 mg Dextrose (Glutose 15) 0 gm PO ONCE PRN; Protocol PRN Reason: Hypoglycemia Protocol Last Admin: 10/24/18 08:49 Dose: 15 gm Dextrose (Dextrose 50% Inj) 50 ml IV PRN PRN; Protocol PRN Reason: Hypoglycemia Protocol Glucagon (Glucagen Diagnostic Kit) 0 mg IM STAT PRN; Protocol PRN Reason: Hypoglycemia Protocol Insulin Aspart (Novolog Mix 70/30 (70/30 Units/Ml)) 16 units SC BID [facility] Last Admin: 11/07/18 09:52 Dose: Not Given Insulin Human Regular (Novolin R) 0 unit SC ACHS [facility]; Protocol Last Admin: 11/07/18 12:10 Dose: 3 units Losartan Potassium (Cozaar) 50 mg PO DAILY [facility] Last Admin: 11/07/18 09:49 Dose: 50 mg Pantoprazole Sodium (Protonix Ec Tab) 20 mg PO DAILY [facility] Last Admin: 11/07/18 09:49 Dose: 20 mg Rosuvastatin Calcium (Crestor) 5 mg PO HS [facility] - Labs Labs: 11/07/18 07:42 11/07/18 07:42 PT 13.8 SECONDS (9.7-12.2) H 10/23/18 13:15 INR 1.3 10/23/18 13:15 APTT 25 SECONDS (21-34) 10/23/18 13:15 - Constitutional Appears: No Acute Distress - Head Exam Head Exam: NORMAL INSPECTION - Eye Exam Eye Exam: EOMI, PERRL - ENT Exam ENT Exam: Normal Oropharynx - Neck Exam Neck Exam: Normal Inspection - Respiratory Exam Respiratory Exam: Clear to Ausculation Bilateral - Cardiovascular Exam Cardiovascular Exam: REGULAR RHYTHM, +S1, +S2 - GI/Abdominal Exam GI & Abdominal Exam: Soft, Normal Bowel Sounds - Extremities Exam Extremities Exam: Normal Capillary Refill. absent: Calf Tenderness, Pedal Edema - Neurological Exam Neurological Exam: Alert, Awake, CN II-XII Intact, Normal Gait, Oriented x3, Reflexes Normal - Psychiatric Exam Psychiatric exam: Normal Mood - Skin Skin Exam: Normal Color, Warm Assessment and Plan (1) Gram negative sepsis Status: Acute (2) Gram positive sepsis Status: Acute (3) Sepsis Status: Acute (4) Abdominal pain Status: Acute (5) Abdominal mass Status: Acute (6) Hx of splenectomy Status: Acute (7) Diabetes Status: Acute (8) HTN (hypertension) Status: Acute
--- NOTE | 2018-11-07 14:07 | CP.PCM.PN ---
Subjective - Date & Time of Evaluation Date of Evaluation: 11/07/18 Time of Evaluation: 14:06 Objective - Vital Signs/Intake and Output Vital Signs (last 24 hours): Temp Pulse Resp BP Pulse Ox 98.2 F 75 20 152/91 H 99 11/07/18 08:00 11/07/18 09:48 11/07/18 08:00 11/07/18 09:48 11/07/18 08:00 Intake and Output: 11/07/18 11/07/18 06:59 18:59 Intake Total 580 Balance 580 - Medications Medications: Current Medications Acetaminophen (Tylenol 325mg Tab) 650 mg PO Q6 PRN PRN Reason: Fever >100.4 F Last Admin: 10/24/18 05:14 Dose: 650 mg Bismuth Subsalicylate (Pepto Bismol) 262 mg PO Q4H PRN PRN Reason: Diarrhea Clopidogrel Bisulfate (Plavix) 75 mg PO DAILY [facility] Last Admin: 11/02/18 09:43 Dose: 75 mg Dextrose (Glutose 15) 0 gm PO ONCE PRN; Protocol PRN Reason: Hypoglycemia Protocol Last Admin: 10/24/18 08:49 Dose: 15 gm Dextrose (Dextrose 50% Inj) 50 ml IV PRN PRN; Protocol PRN Reason: Hypoglycemia Protocol Glucagon (Glucagen Diagnostic Kit) 0 mg IM STAT PRN; Protocol PRN Reason: Hypoglycemia Protocol Insulin Aspart (Novolog Mix 70/30 (70/30 Units/Ml)) 16 units SC BID [facility] Last Admin: 11/07/18 09:52 Dose: Not Given Insulin Human Regular (Novolin R) 0 unit SC [facility]; Protocol Last Admin: 11/07/18 12:10 Dose: 3 units Losartan Potassium (Cozaar) 50 mg PO DAILY [facility] Last Admin: 11/07/18 09:49 Dose: 50 mg Pantoprazole Sodium (Protonix Ec Tab) 20 mg PO DAILY [facility] Last Admin: 11/07/18 09:49 Dose: 20 mg Rosuvastatin Calcium (Crestor) 5 mg PO HS [facility] - Labs Labs: 11/07/18 07:42 11/07/18 07:42 PT 13.8 SECONDS (9.7-12.2) H 10/23/18 13:15 INR 1.3 10/23/18 13:15 APTT 25 SECONDS (21-34) 10/23/18 13:15 Assessment and Plan - Assessment and Plan (Free Text) Assessment: FOLLOW UP WITH DR NINA IN HIS OFFICE ------CALL FOR APPOINTMENT FOLLOW UP WITH DR BUSTOS IN HER OFFICE -----CALL FOR APPOITMENT FOLLOW UP WITH DR LEYVA IN HIS OFFICE -----CALL FOR APPOINTMENT CONTINUE HOME MEDICATION NEW PRESCRIPTION GIVEN AUGMENTIN PO ONE TAB Q12H FOR 5 DAYS CRESTOR 5 MG PO DAILY PLAVIX 75 MG PO DAILY INSULIN 70/30 16 U SC BID LOSARTAN 50 MG PO DAILY PROTONIX 20 MG PO DAILY ACTIVITY TOLERATED CALL DR NINA OR GO TO THE EMERGENCY ROOM IF SYMPTOM RETURN OR WORSENING
--- NOTE | 2018-11-07 20:23 | CP.PCM.DIS ---
Provider - Provider Date of Admission: 10/23/18 15:58 Attending physician: Dennis Verdin MD Consults: 10/23/18 16:46 Hematology Oncology Consult Routine Comment: Consulting Provider: Star Menendez Consulting Physician: Star Menendez Reason for Consult: pancytopenia, ca ppancrease 10/24/18 07:29 Gastroenterology Consult Routine Comment: Consulting Provider: Paramjit Garza Consulting Physician: Paramjit Garza Reason for Consult: Code sepsis, Diahrrea 10/24/18 18:25 Infectious Disease Consult Routine Comment: Consulting Provider: Vivian Sheppard Consulting Physician: Vivian Sheppard Reason for Consult: sepsis 10/27/18 17:10 Cardiology Consult Routine Comment: Consulting Provider: Ramirez Rivas Consulting Physician: Ramirez Rivas Reason for Consult: low EF/ PFO 11/04/18 09:09 General Surgery Consult Routine Comment: Consulting Provider: Escobar Shane Consulting Physician: Escobar Shane Reason for Consult: josé manuel hepatis mass Time Spent in preparation of Discharge (in minutes): 30 Hospital Course - Lab Results Lab Results: Micro Results 10/31/18 08:08 Blood-Venous Blood Culture - Final NO GROWTH AFTER 5 DAYS 10/31/18 08:08 Blood-Venous Gram Stain - Final TEST NOT PERFORMED 10/31/18 07:00 Blood-Venous Blood Culture - Final NO GROWTH AFTER 5 DAYS 10/31/18 07:00 Blood-Venous Gram Stain - Final TEST NOT PERFORMED 10/30/18 00:33 Other: Please Indicate Mycobacterial Culture - Final 10/23/18 16:52 Blood Blood Culture - Final Escherichia Coli 10/23/18 16:52 Blood Gram Stain - Final 10/26/18 21:04 Stool Stool Culture - Final NO SALMONELLA, SHIGELLA OR CAMPYLOBACTER ISOLATED. 10/23/18 16:52 Blood Blood Culture - Final Streptococcus Viridans 10/23/18 16:52 Blood Gram Stain - Final 10/24/18 14:49 Stool Stool Culture - Final NO SALMONELLA, SHIGELLA OR CAMPYLOBACTER ISOLATED. 10/23/18 20:41 Urine Random Urine Culture - Final No Growth (<1,000 CFU/ML) 10/23/18 20:41 Nose MRSA Culture (Admit) - Final MRSA NOT DETECTED Most Recent Lab Values WBC 7.2 K/uL (4.8-10.8) 11/07/18 07:42 RBC 3.33 Mil/uL (4.40-5.90) L 11/07/18 07:42 Hgb 10.4 g/dL (12.0-18.0) L 11/07/18 07:42 Hct 31.1 % (35.0-51.0) L 11/07/18 07:42 MCV 93.5 fL (80.0-94.0) 11/07/18 07:42 MCH 31.4 pg (27.0-31.0) H 11/07/18 07:42 MCHC 33.6 g/dL (33.0-37.0) 11/07/18 07:42 RDW 13.8 % (11.5-14.5) 11/07/18 07:42 Plt Count 230 K/uL (130-400) 11/07/18 07:42 MPV 10.3 fL (7.2-11.7) 11/07/18 07:42 Neut % (Auto) 50.1 % (50.0-75.0) 11/03/18 06:20 Lymph % (Auto) 34.1 % (20.0-40.0) 11/03/18 06:20 [place] % (Auto) 12.2 % (0.0-10.0) H 11/03/18 06:20 Eos % (Auto) 2.3 % (0.0-4.0) 11/03/18 06:20 Baso % (Auto) 1.3 % (0.0-2.0) 11/03/18 06:20 Neut # (Auto) 3.8 K/uL (1.8-7.0) 11/03/18 06:20 Lymph # (Auto) 2.6 K/uL (1.0-4.3) 11/03/18 06:20 [place] # (Auto) 0.9 K/uL (0.0-0.8) H 11/03/18 06:20 Eos # (Auto) 0.2 K/uL (0.0-0.7) 11/03/18 06:20 Baso # (Auto) 0.1 K/uL (0.0-0.2) 11/03/18 06:20 Neutrophils % (Manual) 75 % (50-75) 10/25/18 07:24 Band Neutrophils % 14 % (0-2) H* 10/25/18 07:24 Lymphocytes % (Manual) 3 % (20-40) L 10/25/18 07:24 Reactive Lymphs % 2 % (0-0) H 10/23/18 13:15 Monocytes % (Manual) 8 % (0-10) 10/25/18 07:24 Differential Comment 10/27/18 06:55 Platelet Estimate Decreased (NORMAL) L 10/25/18 07:24 Large Platelets Present 10/24/18 05:52 RBC Morphology Normal 10/23/18 13:15 Hypochromasia (manual) Slight 10/25/18 07:24 Poikilocytosis (manual Moderate 10/25/18 07:24 Anisocytosis (manual) Slight 10/25/18 07:24 Microcytosis (manual) Slight 10/24/18 05:52 Target Cells Slight 10/25/18 07:24 Isai Cells Moderate 10/25/18 07:24 Acanthocytes (Spur) Slight 10/24/18 05:52 ESR 4 mm/hr (0-15) 10/31/18 07:00 Retic Count 0.3 % (0.5-1.5) L 10/25/18 07:24 PT 13.8 SECONDS (9.7-12.2) H 10/23/18 13:15 INR 1.3 10/23/18 13:15 APTT 25 SECONDS (21-34) 10/23/18 13:15 pO2 30 mm/Hg (30-55) 10/23/18 13:23 VBG pH 7.34 (7.32-7.43) 10/23/18 13:23 VBG pCO2 45 mmHg (40-60) 10/23/18 13:23 VBG HCO3 22.4 mmol/L 10/23/18 13:23 VBG Total CO2 25.7 mmol/L (22-28) 10/23/18 13:23 VBG O2 Sat (Calc) 65.8 % (40-65) H 10/23/18 13:23 VBG Base Excess -1.7 mmol/L (0.0-2.0) L 10/23/18 13:23 VBG Potassium 2.1 mmol/L (3.6-5.2) L* 10/23/18 13:23 Sodium 141.0 mmol/l (132-148) 10/23/18 13:23 Chloride 104.0 mmol/L (98-107) 10/23/18 13:23 Glucose 77 mg/dl (75-110) 10/23/18 13:23 Lactate 7.0 mmol/L (0.7-2.1) H* 10/23/18 13:23 Sodium 136 mmol/L (132-148) 11/07/18 07:42 Potassium 4.3 mmol/L (3.6-5.2) 11/07/18 07:42 Chloride 100 mmol/L (98-107) 11/07/18 07:42 Carbon Dioxide 30 mmol/L (22-30) 11/07/18 07:42 Anion Gap 10 (10-20) 11/07/18 07:42 BUN 6 mg/dL (9-20) L 11/07/18 07:42 Creatinine 0.4 mg/dL (0.8-1.5) L 11/07/18 07:42 Est GFR ( Amer) > 60 11/07/18 07:42 Est GFR (Non-Af Amer) > 60 11/07/18 07:42 POC Glucose (mg/dL) 78 mg/dL (65-110) 11/07/18 06:28 Random Glucose 77 mg/dL (75-110) D 11/07/18 07:42 Lactic Acid 3.2 mmol/L (0.7-2.1) H 10/24/18 05:51 Calcium 8.8 mg/dl (8.6-10.4) 11/07/18 07:42 Phosphorus 2.4 mg/dL (2.5-4.5) L 10/27/18 06:55 Magnesium 1.8 mg/dL (1.6-2.3) 11/07/18 07:42 Ferritin 412.0 ng/mL 10/25/18 06:28 Total Bilirubin 0.6 mg/dL (0.2-1.3) 10/31/18 07:00 Direct Bilirubin 0.0 mg/dL (0.0-0.4) 10/31/18 07:00 AST 29 U/L (17-59) 10/31/18 07:00 ALT 22 U/L (21-72) 10/31/18 07:00 Alkaline Phosphatase 88 U/L (38-126) 10/31/18 07:00 Troponin I < 0.0120 ng/mL (0.00-0.120) 10/23/18 13:15 Total Protein 5.6 g/dL (6.3-8.3) L 10/31/18 07:00 Albumin 2.9 g/dL (3.5-5.0) L 10/31/18 07:00 Globulin 2.8 gm/dL (2.2-3.9) 10/31/18 07:00 Albumin/Globulin Ratio 1.0 (1.0-2.1) 10/31/18 07:00 Amylase 38 U/L (30-110) 10/27/18 06:55 Lipase < 10 U/L (23-300) L 10/27/18 06:55 Angiotensin Convert Enz 27 U/L (9-67) 10/31/18 07:00 Carcinoembryonic Ag 6.9 ng/mL (0-3.0) H 10/25/18 07:24 CA 19-9 Antigen 41.6 U/mL (0-37) H 10/25/18 06:28 Vitamin B12 243 pg/mL (239-931) 10/25/18 06:28 Folate 7.1 ng/mL 10/25/18 06:28 Venous Blood Potassium 2.1 mmol/L (3.6-5.2) L* 10/23/18 13:23 Urine Color Yellow (YELLOW) 10/23/18 20:50 Urine Clarity Clear (Clear) 10/23/18 20:50 Urine pH 5.0 (5.0-8.0) 10/23/18 20:50 Ur Specific [place] 1.036 (1.003-1.030) H 10/23/18 20:50 Urine Protein 1+ mg/dL (NEGATIVE) H 10/23/18 20:50 Urine Glucose (UA) 3+ mg/dL (Normal) H 10/23/18 20:50 Urine Ketones Negative mg/dL (NEGATIVE) 10/23/18 20:50 Urine Blood 1+ (NEGATIVE) H 10/23/18 20:50 Urine Nitrate Negative (NEGATIVE) 10/23/18 20:50 Urine Bilirubin Negative (NEGATIVE) 10/23/18 20:50 Urine Urobilinogen Normal mg/dL (0.2-1.0) 10/23/18 20:50 Ur Leukocyte Esterase Neg Myla/uL (Negative) 10/23/18 20:50 Urine WBC (Auto) 5 /hpf (0-5) 10/23/18 20:50 Urine RBC (Auto) 1 /hpf (0-3) 10/23/18 20:50 Ur Squamous Epith Cells 1 /hpf (0-5) 10/23/18 20:50 Stool Occult Blood Negative (NEGATIVE) 11/02/18 13:55 Stool Leukocytes, Qual Negative (NEGATIVE) 10/30/18 01:54 Stl Cryptosporidium Ag Not detected (Not detected) 10/28/18 11:57 Stl Giardia Antigen TEST NOT PERFORMED 10/28/18 11:57 Vancomycin Trough 17.5 ug/mL (5.0-10.0) H 10/27/18 11:28 Urine Opiates Screen Negative (NEGATIVE) 10/23/18 20:41 Urine Methadone Screen Negative (NEGATIVE) 10/23/18 20:41 Ur Barbiturates Screen Negative (NEGATIVE) 10/23/18 20:41 Ur Phencyclidine Scrn Negative (NEGATIVE) 10/23/18 20:41 Ur Amphetamines Screen Negative (NEGATIVE) 10/23/18 20:41 U Benzodiazepines Scrn Negative (NEGATIVE) 10/23/18 20:41 U Oth Cocaine Metabols Negative (NEGATIVE) 10/23/18 20:41 U Cannabinoids Screen Negative (NEGATIVE) 10/23/18 20:41 Absolute Lymphs (Flow) 1493 Cells/mcL (850-3900) 10/28/18 07:43 % CD4 Cells 57 Percent (30-61) 10/28/18 07:43 Absolute CD4 Count 846 Cells/mcL (490-1740) 10/28/18 07:43 T-Help/Suppress Ratio 3.69 Ratio (0.86-5.00) 10/28/18 07:43 % CD8 Cells 15 Percent (12-42) 10/28/18 07:43 Absolute CD8 Count 229 Cells/mcL (180-1170) 10/28/18 07:43 C. difficile Ag & Toxin Negative (NEGATIVE) 10/24/18 05:55 Cryptosp/Giardia Source Stool 10/28/18 11:57 Giardia Antigen Not detected (Not Detected) 10/28/18 11:57 Hepatitis A IgM Ab Negative (NEGATIVE) 10/23/18 20:10 Hep Bs Antigen Negative (NEGATIVE) 10/23/18 20:10 Hep B Core IgM Ab Negative (NEGATIVE) 10/23/18 20:10 Hepatitis C Antibody Negative (NEGATIVE) 10/23/18 20:10 HIV 1&2 Antibody Screen Negative (NEGATIVE) 10/23/18 20:10 TB Test (QFT) Nil 0.03 IU/mL 10/28/18 07:43 TB Test Mitogen - Nil 7.60 IU/mL 10/28/18 07:43 TB Test Antigen - Nil 0.01 IU/mL 10/28/18 07:43 TB Test TB - Nil 0.00 IU/mL 10/28/18 07:43 TB Test (QFT) Negative (Negative) 10/28/18 07:43 Blood Type A POSITIVE 10/23/18 16:52 Antibody Screen Negative 10/23/18 16:52 Discharge Exam - Head Exam Head Exam: NORMOCEPHALIC Discharge Plan - Discharge Medications Prescriptions: Amoxicillin/Clavulanate [Augmentin 875 MG-125 MG] 1 tab PO Q12H 5 Days tab Losartan [Cozaar] 50 mg PO DAILY 30 Days tab Rosuvastatin Calcium [Crestor] 5 mg PO HS 30 Days tab Insulin Aspart/Insulin Aspar [Novolog Mix 70/30 (70/30 units/ml)] 16 units SC BID 30 Days unit Clopidogrel [Plavix] 75 mg PO DAILY 30 Days tab Pantoprazole [Protonix EC Tab] 20 mg PO DAILY 30 Days ect - Follow Up Plan Condition: SERIOUS Disposition: HOME/ ROUTINE Instructions: Insulin Aspart Protamine and Insulin Aspart, Diabetes Exchange Diet, Diabetes Diet , Sepsis, Adult (DC), Neutropenia (DC), Amoxicillin and Clavulanate, Clopidogrel, Losartan, Pantoprazole, Rosuvastatin, Leukocytosis (DC) Additional Instructions: FOLLOW UP WITH DR VERDIN IN HIS OFFICE ------CALL FOR APPOINTMENT FOLLOW UP WITH DR SHEPPARD IN HER OFFICE -----CALL FOR APPOITMENT FOLLOW UP WITH DR SHANE IN HIS OFFICE -----CALL FOR APPOINTMENT CONTINUE HOME MEDICATION NEW PRESCRIPTION GIVEN AUGMENTIN PO ONE TAB Q12H FOR 5 DAYS CRESTOR 5 MG PO DAILY PLAVIX 75 MG PO DAILY INSULIN 70/30 16 U SC BID LOSARTAN 50 MG PO DAILY PROTONIX 20 MG PO DAILY ACTIVITY TOLERATED CALL DR VERDIN OR GO TO THE EMERGENCY ROOM IF SYMPTOM RETURN OR WORSENING Referrals: Ramirez Rivas MD [Staff Provider] - Escobar Shane MD [Staff Provider] - Paramjit Garza [Staff Provider] - Vivian Sheppard MD [Staff Provider] - Dennis Verdin MD [Staff Provider] -
--- NOTE | 2018-11-08 07:26 | PN ---
DATE: 11/07/2018 LOCATION: 667, bed B. SUBJECTIVE: This is a 52-year-old male seen and examined in rounds without significant clinical changes, without reported recent history of active GI bleeding, but generalized weakness and malaise. The entire chart is reviewed including but not limited to the most recent lab and radiology study results, current and the previous medication list. The patient denies any actual chest pain, palpitation, significant shortness of breath or evidence of active GI bleeding but fatigue. The entire chart is reviewed and the most recent lab results showed hemoglobin of 10.4, hematocrit 31.1 with low BUN and creatinine. Blood glucose level of 78. PHYSICAL EXAMINATION: GENERAL: A 52-year-old male. VITAL SIGNS: Afebrile with pulse of 72, respiratory rate 20 to 22, blood pressure 148/86. HEENT: Showed pale dry oral mucous membrane. Nonicteric sclerae. LUNGS: Few scattered crepitation. Decreased air entry at bases. HEART: Positive S1 and S2. ABDOMEN: Soft with mild distention. No mass or organomegaly. No rebound tenderness or guarding. EXTREMITIES: Without significant clubbing, cyanosis or edema. NEUROLOGIC: No reported new neurological deficits, sensory or motor. IMPRESSION: 1. Acute on top of chronic pancreatitis, still waiting for repeat lipase and amylase level results. 2. Anemia, most likely secondary to chronic disease. 3. Poorly controlled diabetes mellitus. 4. Abdominal mass lesion, should be scheduled for biopsy by Interventional Radiology. 5. Poorly controlled hypertension. SUGGESTIONS: 1. Continue current management. 2. Follow up in cancer markers including CEA as well as CA-125. 3. Further recommendation to follow. Paramjit Ramos MD
--- NOTE | 2018-11-08 07:29 | DS ---
DISCHARGE DIAGNOSES: 1. Poorly controlled diabetes. 2. Infective endocarditis. 3. Hypertension. 4. Patent foramen ovale. HISTORY OF PRESENT ILLNESS AND HOSPITAL COURSE: This is a 52-year-old male with a history of pancreatic malignancy, status post Whipple many years ago; diabetes, on insulin who is noncompliant with diet, medications and followup. In his usual state of health, the patient is ambulatory. He came in with very high fever, dehydration, low bicarb. He was admitted to the floor, started on IV fluids, Accu-Cheks and sliding scale. Later on, his blood culture was positive for Streptococcus viridans and E. coli, and the patient was treated with antibiotics. Cultures are negative now. The patient underwent transesophageal echo as the patient has patent foramen ovale. The patient also had abdominal MRI, and the patient was seen by Oncology. The patient has been seen by . Most likely, the patient has pancreatic pseudocyst as per , the patient is for discharge. PHYSICAL EXAMINATION: VITAL SIGNS: Blood pressure 152/91, pulse 75, respiratory rate 20, temperature 98.2. LUNGS: Clear. PLAN: Discharge the patient. Dennis Verdin MD
--- NOTE | 2018-11-08 21:22 | CP.PCM.PN ---
Subjective - Date & Time of Evaluation Date of Evaluation: 11/07/18 Time of Evaluation: 12:00 - Subjective Subjective: No complaints. Objective - Vital Signs/Intake and Output Vital Signs (last 24 hours): Temp Pulse Resp BP Pulse Ox 98.2 F 75 20 152/91 H 99 11/07/18 08:00 11/07/18 09:48 11/07/18 08:00 11/07/18 09:48 11/07/18 08:00 - Labs Labs: 11/07/18 07:42 11/07/18 07:42 PT 13.8 SECONDS (9.7-12.2) H 10/23/18 13:15 INR 1.3 10/23/18 13:15 APTT 25 SECONDS (21-34) 10/23/18 13:15 - Head Exam Head Exam: ATRAUMATIC - Eye Exam Eye Exam: Normal appearance - ENT Exam ENT Exam: Mucous Membranes Dry - Respiratory Exam Respiratory Exam: NORMAL BREATHING PATTERN - Cardiovascular Exam Cardiovascular Exam: +S1, +S2 - GI/Abdominal Exam GI & Abdominal Exam: Normal Bowel Sounds Assessment and Plan (1) Abdominal mass Assessment & Plan: outpatient surveillance imaging probable pseudocyst Status: Acute (2) Anemia Status: Acute
== END 2018-11-07 16:11 | disposition home or self-care (01) | DRG 438 ==
LOC: C.ER 12:48 → C.9E 15:58 → C.9I 18:36 → C.6T 10-24 20:49
PROVIDERS: ADMIT Internal Medicine; ATTEND Internal Medicine
PROC: B24BZZ4 Ultrasonography of Heart with Aorta, Transesophageal (ICD-10-PCS; principal; 2018-11-03)
DX: K86.3 Pseudocyst of pancreas (principal); A41.51 Sepsis due to Escherichia coli [E. coli]; K85.90 Acute pancreatitis without necrosis or infection, unspecified; I81 Portal vein thrombosis; D61.818 Other pancytopenia; Q21.1 Atrial septal defect; K86.1 Other chronic pancreatitis; D72.825 Bandemia; E86.0 Dehydration; E87.6 Hypokalemia; F17.200 Nicotine dependence, unspecified, uncomplicated; E11.65 Type 2 diabetes mellitus with hyperglycemia; E11.43 Type 2 diabetes mellitus with diabetic autonomic (poly)neuropathy; I10 Essential (primary) hypertension; K31.84 Gastroparesis; R55 Syncope and collapse; N30.90 Cystitis, unspecified without hematuria; R97.0 Elevated carcinoembryonic antigen [CEA]; K27.9 Peptic ulcer, site unspecified, unspecified as acute or chronic, without hemorrhage or perforation; Z91.11 Patient's noncompliance with dietary regimen; Z91.14 Patient's other noncompliance with medication regimen; Z85.07 Personal history of malignant neoplasm of pancreas; Z90.81 Acquired absence of spleen; Z79.4 Long term (current) use of insulin; F17.210 Nicotine dependence, cigarettes, uncomplicated

== ENCOUNTER 2018-11-15 09:43 | Emergency (ER) | payer MEDICARE ==
[2018-11-15 10:12] VITALS: RESP 18; O2SAT 100
[2018-11-15 10:33] LABS: VENOUS BLOOD GAS BASE EXCESS -3.3 mmol/L (0.0-2.0); VENOUS BLOOD GAS PCO2 36 mmHg (40-60); VENOUS BLOOD GAS PO2 44 mm/Hg (30-55); VENOUS BLOOD PH 7.38 (7.32-7.43)
[2018-11-15 10:38] LABS: BASO # 0.1 K/uL (0.0-0.2)
[2018-11-15 10:41] LABS: BASO % 1.3 % (0.0-2.0); EOS % 0.4 % (0.0-4.0); LYMPH # 0.7 K/uL (1.0-4.3); LYMPH % 14.6 % (20.0-40.0); MEAN CORPUSCULAR HEMOGLOBIN 31.2 pg (27.0-31.0); MEAN CORPUSCULAR HGB CONC 33.2 g/dL (33.0-37.0); MEAN PLATELET VOLUME 10.8 fL (7.2-11.7); MONO # 0.4 K/uL (0.0-0.8); MONO % 9.1 % (0.0-10.0); NEUT # 3.6 K/uL (1.8-7.0); NEUT % 74.6 % (50.0-75.0); RBC 4.17 Mil/uL (4.40-5.90); RED CELL DISTRIBUTION WIDTH 13.9 % (11.5-14.5); WHITE BLOOD COUNT 4.9 K/uL (4.8-10.8)
[2018-11-15 10:53] LABS: ALB/GLOB RATIO 1.1 (1.0-2.1); ALBUMIN 4.6 g/dL (3.5-5.0); ALT/SGPT 15 U/L (21-72); AST/SGOT 43 U/L (17-59); BLOOD UREA NITROGEN 9 mg/dL (9-20); CALCIUM 9.2 mg/dl (8.6-10.4); GFR NON-AFRICAN AMERICAN > 60
--- NOTE | 2018-11-15 10:59 | RAD ---
Chest x-ray single frontal view HISTORY: Hypoglycemia. COMPARISON: 01/06/2017 FINDINGS: Mild venous congestion. Bilateral hilar prominence. Right paratracheal prominence may represent prominent vasculature. Enlarged ectatic aorta. Heart size within normal limits. Degenerative changes in the spine and shoulders. IMPRESSION: Mild venous congestion. Bilateral hilar prominence. Enlarged ectatic aorta.
[2018-11-15 11:06] LABS: CK-MB 0.75 ng/mL (0.0-3.38)
--- NOTE | 2018-11-15 11:24 | C.PDOC ---
History Of Present Illness 52 y/o male BIBA from home for hypoglycemic episode. Patient reportedly was difficult to arouse to a family member, who called EMS. When EMS arrived BS was found to be 25 mg/dL, and he received 1 amp of D50 and glucagon IM in the field. Of note patient was recently admitted here for infective endocarditis and poorly controlled diabetes. He admits that on discharge his insulin regimen was changed, Novolin was increased from 14 to 16 units. Patient has no physical complaints on ED arrival. He denies cough, fever, runny nose, SOB, chest pain, vomiting, diarrhea, or abdominal pain. Patient admits that last night he did not eat any snacks prior to sleeping, which he typically does. Time Seen by Provider: 11/15/18 09:50 Chief Complaint (Nursing): High Blood Sugar History Per: Patient History/Exam Limitations: no limitations Onset/Duration Of Symptoms: Mins Current Symptoms Are (Timing): Gone Current Diabetic Medications: Insulin Causative (Exacerbating) Factor(s): Ate Less Than Normal, Other (recent increase in insulin) Treatment Prior To Provider Evaluation: D50W Given, Glucagon Given Response To Treatment: Good Response Additional History Per: EMS Past Medical History Reviewed: Historical Data, Nursing Documentation, Vital Signs Vital Signs: Last Vital Signs Temp Pulse 84 11/15/18 09:51 Resp 18 11/15/18 09:51 BP 164/96 H 11/15/18 09:51 Pulse Ox 100 11/15/18 09:51 - Medical History PMH: Diabetes, HTN, Pulmonary Embolism Other Surgeries: Splenectomy - [facility] Procedures TETANUS TOXOID ADMINIST (05/08/15) ULTRASONOGRAPHY OF HEART WITH AORTA, TRANSESOPHAGEAL (10/23/18) Family History: States: No Known Family Hx - Social History Hx Tobacco Use: Yes Hx Alcohol Use: No (Stpped 3 months ago) Hx Substance Use: No - Immunization History Hx Tetanus Toxoid Vaccination: No Hx Influenza Vaccination: No Hx Pneumococcal Vaccination: No Review Of Systems Constitutional: Negative for: Fever, Sweats Eyes: Negative for: Vision Change ENT: Negative for: Nose Congestion Cardiovascular: Negative for: Chest Pain, Palpitations Respiratory: Negative for: Cough, Shortness of Breath Gastrointestinal: Negative for: Nausea, Vomiting, Abdominal Pain, Diarrhea Genitourinary: Negative for: Dysuria, Hematuria Skin: Negative for: Rash Neurological: Positive for: Altered Mental Status (now resolved). Negative for: Weakness, Numbness, Incoordination, Change in Speech, Confusion, Seizures, Headache, Dizziness Physical Exam - Physical Exam Appears: Well, Non-toxic, No Acute Distress Skin: Normal Color, Warm, Dry Head: Atraumatic, Normacephalic Eye(s): bilateral: Normal Inspection, PERRL, EOMI Oral Mucosa: Moist Lips: Other (Dry, chapped lips) Neck: Supple Chest: Symmetrical Cardiovascular: Rhythm Regular, No Murmur Respiratory: Normal Breath Sounds, No Rales, No Rhonchi, No Wheezing Gastrointestinal/Abdominal: Normal Exam, Bowel Sounds, Soft, No Tenderness Extremity: Normal ROM, No Pedal Edema, No Calf Tenderness Pulses: Left Dorsalis Pedis: Normal, Right Dorsalis Pedis: Normal Neurological/Psych: Oriented x3, Normal Speech, Normal Cognition, Normal Cranial Nerves, No Cerebellar Signs, Normal Motor, Normal Sensation, Normal Reflexes, No Dysarthria, No Romberg Gait: Steady ED Course And Treatment - Laboratory Results Result Diagrams: 11/15/18 10:27 11/15/18 10:27 Lab Results: pO2 44 mm/Hg (30-55) 11/15/18 10:28 VBG pH 7.38 (7.32-7.43) 11/15/18 10:28 VBG pCO2 36 mmHg (40-60) L 11/15/18 10:28 VBG HCO3 21.8 mmol/L 11/15/18 10:28 VBG Total CO2 22.4 mmol/L (22-28) 11/15/18 10:28 VBG O2 Sat (Calc) 86.1 % (40-65) H 11/15/18 10:28 VBG Base Excess -3.3 mmol/L (0.0-2.0) L 11/15/18 10:28 VBG Potassium 4.3 mmol/L (3.6-5.2) 11/15/18 10:28 Sodium 144.0 mmol/l (132-148) 11/15/18 10:28 Chloride 117.0 mmol/L (98-107) H 11/15/18 10:28 Glucose 130 mg/dl (75-110) H 11/15/18 10:28 Lactate 1.2 mmol/L (0.7-2.1) 11/15/18 10:28 Troponin I < 0.0120 ng/mL (0.00-0.120) 11/15/18 10:27 Total Bilirubin 0.8 mg/dL (0.2-1.3) 11/15/18 10:27 AST 43 U/L (17-59) 11/15/18 10:27 ALT 15 U/L (21-72) L D 11/15/18 10:27 Alkaline Phosphatase 94 U/L (38-126) 11/15/18 10:27 Total Protein 8.7 g/dL (6.3-8.3) H 11/15/18 10:27 Albumin 4.6 g/dL (3.5-5.0) 11/15/18 10:27 Globulin 4.1 gm/dL (2.2-3.9) H 11/15/18 10:27 Albumin/Globulin Ratio 1.1 (1.0-2.1) 11/15/18 10:27 ECG: Interpreted By Me, Viewed By Me (NSR 70 bpm, normal axis, no acute ST/T wave changes) ECG Rhythm: Sinus Rhythm ECG Interpretation: Normal Rate From EC O2 Sat by Pulse Oximetry: 100 (RA) Pulse Ox Interpretation: Normal - Other Rad CXR X-Ray: Read By Radiologist Interpretation: Accession No. : [id number]. Patient Name / ID : ABISAI MUELLER / [id number]. Exam Date : 11/15/2018 10:20:31 ( Approved ). Study Comment : Sex / Age : M / 52Y. Creator : chino stewart. Dictator : Geremias Lopez MD. Senior Outside Sales Representative : Shape Carver : Geremias Lopez MD. Approver2 : Report Date : 11/15/2018 10:23:51. My Comment : . Chest x-ray single frontal view. HISTORY: Hypoglycemia. COMPARISON: 01/06/2017. FINDINGS: Mild venous congestion. Bilateral hilar prominence. Right paratracheal prominence may represent prominent vasculature. Enlarged ectatic aorta. Heart size within normal limits. Degenerative changes in the spine and shoulders. IMPRESSION: Mild venous congestion. Bilateral hilar prominence. Enlarged ectatic aorta. Progress Note: Accucheck is 148 on ED arrival. Blood work, UA, EKG, and CXR ordered and reviewed. Reevaluation Time: 14:15 Reassessment Condition: Improved (Patient reassessed, is currently AAOx3, ambulating around ED. He states he feels well, and would like to be discharged home. Low blood sugar likely due to decreased food last night and recent increase insulin dose. He has been monitored in the ED for >4 hours, and blood sugar has been ok. Patient discharged home, was instructed to follow up with PMD in 1-2 days. He understands he should return to ED if his symptoms return/worsen.) - Physician Consult Information Physician Contacted: Dennis Verdin Outcome Of Conversation: Discussed patient with PMD, he is in agreement that patient can be discharged home and follow up in the office. Disposition Counseled Patient/Family Regarding: Studies Performed, Diagnosis, Need For Followup - Disposition Referrals: Dennis Verdin MD [Staff Provider] - Disposition: HOME/ ROUTINE Disposition Time: 14:15 Condition: STABLE Additional Instructions: FOLLOW UP WITH YOUR DOCTOR IN 1-2 DAYS RETURN TO ER IMMEDIATELY IF SYMPTOMS WORSEN Instructions: Low Blood Sugar, Adult (DC) Forms: [employer] (Faroese) Print Language: YORUBA - Clinical Impression Clinical Impression: Hypoglycemia - Scribe Statement The provider has reviewed the documentation as recorded by the Delfina Velez Provider Attestation: All medical record entries made by the Delfina were at my direction and personally dictated by me. I have reviewed the chart and agree that the record accurately reflects my personal performance of the history, physical exam, medical decision making, and the department course for this patient. I have also personally directed, reviewed, and agree with the discharge instructions and disposition.
[2018-11-15 12:34] VITALS: TEMP 98.1
[2018-11-15 13:15] LABS: SQUAMOUS EPITHIAL 1 /hpf (0-5); URINE AMORPHOUS SEDIMENT RARE /ul (<OCC); URINE BACTERIA RARE (<OCC); URINE BILIRUBIN NEGATIVE (NEGATIVE); URINE BLOOD NEGATIVE (NEGATIVE); URINE CLARITY Hazy (Clear); URINE COLOR Yellow (YELLOW); URINE GLUCOSE (UA) 1+ mg/dL (Normal); URINE LEUKOCYTE ESTERASE NEG Leu/uL (Negative); URINE PROTEIN NEGATIVE (NEGATIVE); URINE UROBILINOGEN NORMAL mg/dL (0.2-1.0)
[2018-11-15 14:33] VITALS: BP 138/86; PULSE 90
--- NOTE | 2018-11-16 12:05 | CARD ---
APPROVED REPORT Date of service: 11/15/2018 EKG Measurement Heart [id number] <Conclusion> Normal sinus rhythm Normal ECG
== END 2018-11-15 14:33 | disposition home or self-care (01) ==
LOC: C.ER 09:43
DX: E11.649 Type 2 diabetes mellitus with hypoglycemia without coma (principal); Z79.4 Long term (current) use of insulin; I10 Essential (primary) hypertension; Z86.711 Personal history of pulmonary embolism; F17.210 Nicotine dependence, cigarettes, uncomplicated